=== PATIENT | male | born 1950 | race Caucasian/White ===

== ENCOUNTER 2016-09-12 09:26 | Outpatient (RCR) | payer BC ==
[2016-06-30 09:34] LABS: BASOPHILS % (AUTO) 0 % (0-10); EOSINOPHILS % (AUTO) 1 % (0-10); LYMPHOCYTES # (AUTO) 1.1 X 10^3 (1.0-4.0); LYMPHOCYTES % (AUTO) 17 % (12-44); MEAN CORPUSCULAR HEMOGLOBIN 30 PG (25-34); MEAN CORPUSCULAR HGB CONC 36 G/DL (32-36); MEAN CORPUSCULAR VOLUME 85 FL (80-99); MEAN PLATELET VOLUME 8.6 FL (7.4-10.4); MONOCYTES # (AUTO) 0.9 X 10^3 (0.0-1.0); MONOCYTES % (AUTO) 13 % (0-12); NEUTROPHILS # (AUTO) 4.4 X 10^3 (1.8-7.8); NEUTROPHILS % (AUTO) 69 % (42-75); PLATELET COUNT 253 10^3/uL (130-400); RED BLOOD COUNT 5.23 10^6/uL (4.35-5.85); RED CELL DISTRIBUTION WIDTH 13.9 % (10.0-14.5); WHITE BLOOD COUNT 6.4 10^3/uL (4.3-11.0)
[2016-06-30 10:00] LABS: ALANINE AMINOTRANSFERASE 26 U/L (0-55); ALBUMIN 4.9 G/DL (3.2-4.5); ANION GAP 14 MMOL/L (5-14); ASPARTATE AMINO TRANSFERASE 26 U/L (5-34); BILIRUBIN,TOTAL 0.5 MG/DL (0.1-1.0); BLOOD UREA NITROGEN 14 MG/DL (7-18); BUN/CREATININE RATIO 16; CALCIUM 9.3 MG/DL (8.5-10.1); CARBON DIOXIDE 18 MMOL/L (21-32); CHLORIDE 103 MMOL/L (98-107); CREATININE SERUM 0.89 MG/DL (0.60-1.30); GFR ESTIMATED > 60; GLUCOSE 76 MG/DL (70-105); POTASSIUM 4.3 MMOL/L (3.6-5.0); SODIUM 135 MMOL/L (135-145); TOTAL PROTEIN 7.4 G/DL (6.4-8.2)
--- NOTE | 2016-06-30 11:39 | Diagnostic Imaging Report ---
PROCEDURE: CT chest without contrast. TECHNIQUE: Multiple contiguous axial images were obtained through the chest without the use of intravenous contrast. INDICATION: Pulmonary nodules. Study compared 08/06/2015. FINDINGS: Subcentimeter bilateral nodules are either stable or decreased from the previous exam. Right lower lobe nodules measured 4 mm today, previously 5 mm and 7 mm. The left lower lobe nodule today is 5 mm previously measuring 7 mm. Additional micronodules unchanged. No new mass is found. There is heterogeneous air-trapping and changes of centrilobular emphysema. Irregular pleural parenchymal scarring at the right upper lobe towards the apex is a redemonstrated finding with reduction in its more kled-vtcgxh-nypx component. Nodularity centrally today measuring 9 x 8 mm, previously 15 x 10 mm. There has been no adverse interval development and no new dominant or suspicious-appearing mass was shown. No effusion or pneumothorax. Hilar and mediastinal evaluation is limited by the absence of contrast but no appreciable adenopathy. There are some secretions and debris within the lumen of the trachea through the josefina with some trace frothy debris within the left mainstem proximally. No distal atelectasis. No findings to suggest a sequelae of aspiration pneumonia. IMPRESSION: Micronodules stable or decreased from priors, likely chronic areas of scarring. No suspicious mass or acute infiltrate. Some mucous and frothy debris within the airway at the lower trachea and proximal left mainstem without obstruction or findings of aspiration pneumonia. Dictated by: Dictated on workstation # [id number]
== END 2016-09-28 | disposition home or self-care (01) ==
LOC: RAD 09:26
PROVIDERS: ATTEND Nurse Practitioner Family
DX: A31.9 Mycobacterial infection, unspecified (principal); R91.1 Solitary pulmonary nodule; J44.9 Chronic obstructive pulmonary disease, unspecified; F17.201 Nicotine dependence, unspecified, in remission
CPT/HCPCS: 36415; 71250; 80053; 85025; 87070; 87077; 87186; 87205

== ENCOUNTER → 2016-11-19 | Outpatient (CLI) | payer BC | LOC: RT 16:12 | PROVIDERS: ATTEND Nurse Practitioner Family | DX: J44.9 Chronic obstructive pulmonary disease, unspecified (principal); A31.9 Mycobacterial infection, unspecified; F17.201 Nicotine dependence, unspecified, in remission ==

== ENCOUNTER → 2016-12-03 | Outpatient (CLI) | payer BC ==
[~2016-12-03] MED LIST: RT-ALBUTEROL SULF 2.5 MG/3 ML PRE-MIX VIAL INH ONE
== END ==
LOC: RT 07:41
PROVIDERS: ATTEND Nurse Practitioner Family
DX: J44.9 Chronic obstructive pulmonary disease, unspecified (principal); A31.9 Mycobacterial infection, unspecified; F17.201 Nicotine dependence, unspecified, in remission
CPT/HCPCS: 94060; 94640; 94726; 94729

== ENCOUNTER 2016-12-26 14:01 | Outpatient (RCR) | payer BC | END 2017-03-26 | disposition home or self-care (01) | LOC: LAB 14:01 | PROVIDERS: ATTEND Nurse Practitioner Family | DX: A31.9 Mycobacterial infection, unspecified (principal) | CPT/HCPCS: 87070; 87077; 87116; 87186; 87205 ==

== ENCOUNTER → 2016-12-30 | Outpatient (CLI) | payer BC ==
[2016-12-30 08:38] LABS: BASOPHILS % (AUTO) 0 % (0-10); EOSINOPHILS # (AUTO) 0.1 10^3/uL (0.0-0.3); EOSINOPHILS % (AUTO) 1 % (0-10); LYMPHOCYTES # (AUTO) 1.6 X 10^3 (1.0-4.0); LYMPHOCYTES % (AUTO) 23 % (12-44); MEAN CORPUSCULAR HEMOGLOBIN 30 PG (25-34); MEAN CORPUSCULAR HGB CONC 35 G/DL (32-36); MEAN CORPUSCULAR VOLUME 85 FL (80-99); MEAN PLATELET VOLUME 8.3 FL (7.4-10.4); MONOCYTES # (AUTO) 0.8 X 10^3 (0.0-1.0); MONOCYTES % (AUTO) 11 % (0-12); NEUTROPHILS # (AUTO) 4.5 X 10^3 (1.8-7.8); NEUTROPHILS % (AUTO) 65 % (42-75); PLATELET COUNT 337 10^3/uL (130-400); RED BLOOD COUNT 5.16 10^6/uL (4.35-5.85); RED CELL DISTRIBUTION WIDTH 13.8 % (10.0-14.5); WHITE BLOOD COUNT 6.9 10^3/uL (4.3-11.0)
[2016-12-30 08:59] LABS: ALANINE AMINOTRANSFERASE 23 U/L (0-55); ALBUMIN 4.4 G/DL (3.2-4.5); ANION GAP 12 MMOL/L (5-14); ASPARTATE AMINO TRANSFERASE 21 U/L (5-34); BILIRUBIN,TOTAL 0.4 MG/DL (0.1-1.0); BLOOD UREA NITROGEN 10 MG/DL (7-18); BUN/CREATININE RATIO 13; CALCIUM 9.1 MG/DL (8.5-10.1); CARBON DIOXIDE 23 MMOL/L (21-32); CHLORIDE 101 MMOL/L (98-107); GFR ESTIMATED > 60; GLUCOSE 84 MG/DL (70-105); SODIUM 136 MMOL/L (135-145)
[2016-12-30 09:00] LABS: BASOPHILS % (MANUAL) 2 %; EOSINOPHILS % (MANUAL) 1 %; LYMPHOCYTES % (MANUAL) 15 %; NEUTROPHILS % (MANUAL) 55 %; REACTIVE LYMPHOCYTES 12 %
== END ==
LOC: LAB 08:19
PROVIDERS: ATTEND Nurse Practitioner Family
DX: J44.9 Chronic obstructive pulmonary disease, unspecified (principal); R91.1 Solitary pulmonary nodule; A31.9 Mycobacterial infection, unspecified; F17.201 Nicotine dependence, unspecified, in remission
CPT/HCPCS: 36415; 80053; 85007; 85027

== ENCOUNTER → 2017-01-06 | Outpatient (CLI) | payer BC ==
[~2017-01-06] MED LIST changes: +CATHETER FLUSH 10 ML SYR IV PRN; +IOHEXOL 350 MG/ML 150 ML (OMNIPAQUE 350) VIAL IV ONE; +NS 100 ML (IVPB) BAG IV ONE; -RT-ALBUTEROL SULF 2.5 MG/3 ML PRE-MIX VIAL INH ONE
--- NOTE | 2017-01-06 11:07 | Diagnostic Imaging Report ---
PROCEDURE: CT angiography of the chest with contrast. TECHNIQUE: Multiple contiguous axial images were obtained through the chest after uneventful bolus administration of intravenous contrast. Reconstructed CTA MIP acquisitions were also performed. Indication: Cough, syncope, dyspnea, followup lung nodule. Comparison: 06/30/2016 and 08/06/2015. Discussion: No pulmonary embolus identified. The thoracic aorta is normal in caliber and configuration. No aneurysm or dissection. Normal heart size. No pleural or pericardial fluid. Severe emphysema is again demonstrated. Interval development of multiple nodular densities within the left lung. The largest within the posterior left upper lobe measures 2.2 x 2.7 cm and is pleural-based. Nodule within the superior segment of the left lower lobe measures 0.9 x 1.2 cm. Nodule along the left major fissure measures 1.6 x 1.0 cm and is pleural-based. Pleural-based nodule within the posterior left lower lobe measures 0.9 cm. Pleural-based spiculated nodule along the medial left lower lobe measures 1.0 cm. Underlying etiology is indeterminate and would include a malignant, infectious, or inflammatory etiology. Recommend clinical correlation and short-term CT followup. Scarring within the right lung apex is stable. The visualized upper abdomen is unremarkable. No mediastinal, hilar, or axillary adenopathy. No acute osseous abnormality identified. Impression: 1. Severe emphysema, stable. 2. Interval development of nodular densities within the left upper and lower lung as described. Etiology is indeterminate. At a minimum, recommend short-term CT followup after appropriate clinical treatment. Potentially the pleural-based nodule within the posterior left upper lobe could be biopsied under CT guidance for more definitive evaluation if nodular densities do not resolve in the near future on CT followup. 3. No pulmonary embolus or aortic abnormality. Dictated by: Dictated on workstation # [id number]
== END ==
LOC: RAD 10:17
PROVIDERS: ATTEND Nurse Practitioner Family
DX: J43.9 Emphysema, unspecified (principal)
CPT/HCPCS: 71275

== ENCOUNTER → 2017-02-13 | Outpatient (CLI) | payer BC ==
[2017-02-13 09:14] LABS: BASOPHILS % (AUTO) 0 % (0-10); EOSINOPHILS % (AUTO) 1 % (0-10); LYMPHOCYTES # (AUTO) 1.1 X 10^3 (1.0-4.0); LYMPHOCYTES % (AUTO) 24 % (12-44); MEAN CORPUSCULAR HEMOGLOBIN 29 PG (25-34); MEAN CORPUSCULAR HGB CONC 35 G/DL (32-36); MEAN CORPUSCULAR VOLUME 85 FL (80-99); MEAN PLATELET VOLUME 8.2 FL (7.4-10.4); MONOCYTES # (AUTO) 0.8 X 10^3 (0.0-1.0); MONOCYTES % (AUTO) 18 % (0-12); NEUTROPHILS # (AUTO) 2.7 X 10^3 (1.8-7.8); NEUTROPHILS % (AUTO) 57 % (42-75); PLATELET COUNT 201 10^3/uL (130-400); RED BLOOD COUNT 5.41 10^6/uL (4.35-5.85); RED CELL DISTRIBUTION WIDTH 14.4 % (10.0-14.5); WHITE BLOOD COUNT 4.6 10^3/uL (4.3-11.0)
[2017-02-13 09:35] LABS: ALANINE AMINOTRANSFERASE 29 U/L (0-55); ALBUMIN 4.7 G/DL (3.2-4.5); ANION GAP 12 MMOL/L (5-14); ASPARTATE AMINO TRANSFERASE 32 U/L (5-34); BILIRUBIN,TOTAL 0.6 MG/DL (0.1-1.0); BLOOD UREA NITROGEN 8 MG/DL (7-18); BUN/CREATININE RATIO 11; CALCIUM 9.5 MG/DL (8.5-10.1); CARBON DIOXIDE 26 MMOL/L (21-32); CHLORIDE 90 MMOL/L (98-107); CREATININE SERUM 0.75 MG/DL (0.60-1.30); GFR ESTIMATED > 60; GLUCOSE 72 MG/DL (70-105); POTASSIUM 4.5 MMOL/L (3.6-5.0); SODIUM 128 MMOL/L (135-145)
[2017-02-13 09:44] LABS: BAND NEUTROPHILS 0 %; BASOPHILS % (MANUAL) 0 %; EOSINOPHILS % (MANUAL) 2 %; LYMPHOCYTES % (MANUAL) 24 %; NEUTROPHILS % (MANUAL) 55 %
== END ==
LOC: LAB 08:59
PROVIDERS: ATTEND Nurse Practitioner Family
DX: A31.9 Mycobacterial infection, unspecified (principal)
CPT/HCPCS: 36415; 80053; 85007; 85027

== ENCOUNTER → 2017-03-16 | Outpatient (CLI) | payer BC ==
--- NOTE | 2017-03-16 15:16 | Diagnostic Imaging Report ---
PROCEDURE: CT chest without contrast. TECHNIQUE: Multiple contiguous axial images were obtained through the chest without the use of intravenous contrast. INDICATION: Followup nodule. Comparison exams evaluated include 01/06/17 and other prior exams including 01/17/15. FINDINGS: There are multiple irregular nodular densities seen on 01/06/2017 exam which demonstrate complete resolution on the current study suggestive of resolved pneumonia. There are background advanced emphysema changes generally worse in the right upper lobe and left lower lobe. There are stable 4-6 mm nodules seen in the superior segment of the lower lobe on both sides stable from 2014. There is also scarring in the lung apices stable from 2014. There is no developing or enlarging suspicious nodule or mass. The heart size is normal. No pericardial or pleural effusion. No thoracic aortic aneurysm. No mediastinal mass or significantly enlarged lymph node in the mediastinum or axilla. No definite mass adjacent to the unopacified hilar vessels seen. The sections in the upper abdomen demonstrate no definite abnormality. Compression fractures of the lower thoracic spine appear to be chronic. A T6 compression fracture is probably subacute, and is new from 06/30/2016. It is seen, however, on 01/06/17. IMPRESSION: 1. Severe emphysema. 2. Stable nodules from December 2014 exam compatible with benign etiology. 3. Subacute compression fracture of T6 vertebral body. If the patient has significant back pain, then further evaluation with MRI of thoracic spine is suggested. Dictated by: Dictated on workstation # [id number]
== END ==
LOC: RAD 12:43
PROVIDERS: ATTEND Nurse Practitioner Family
DX: J43.9 Emphysema, unspecified (principal); R91.8 Other nonspecific abnormal finding of lung field; A31.9 Mycobacterial infection, unspecified; F17.201 Nicotine dependence, unspecified, in remission
CPT/HCPCS: 71250

== ENCOUNTER → 2017-04-02 | Outpatient (CLI) | payer MEDICARE, BC ==
--- NOTE | 2017-04-02 14:49 | Diagnostic Imaging Report ---
Examination: DEXA scan. INDICATION: osteopenia TECHNIQUE: Bone mineral density estimated based on dual energy radiography over the lumbar spine and femoral necks, was performed. FINDINGS: The lumbar spine T-score is -0.2. T score over the left femoral neck is -1.5 and on the right side is -1.6. IMPRESSION: Osteopenia. Dictated by: Dictated on workstation # [id number]
== END ==
LOC: RAD 08:41
PROVIDERS: ATTEND Nurse Practitioner Family
DX: M85.89 Other specified disorders of bone density and structure, multiple sites (principal); M48.54XA Collapsed vertebra, not elsewhere classified, thoracic region, initial encounter for fracture
CPT/HCPCS: 77080

== ENCOUNTER → 2017-04-23 | Outpatient (CLI) | payer MEDICARE, BC ==
--- NOTE | 2017-04-23 16:09 | Diagnostic Imaging Report ---
PROCEDURE: CT abdomen and pelvis without contrast. TECHNIQUE: Multiple contiguous axial images were obtained through the abdomen and pelvis without the use of intravenous contrast. INDICATION: Nausea. Lower abdominal pain. FINDINGS: The lower lungs demonstrate advanced emphysema changes and bulla. The liver, spleen, pancreas and adrenal glands appear unremarkable. The kidneys demonstrate no stones or hydronephrosis. The abdominal aorta is normal in caliber. The renal bladder demonstrates mild wall thickening which could relate to cystitis. Alternatively, this might be secondary to BPH. The prostate gland demonstrates central calcifications and is slightly enlarged. It measures 4.8 cm in transverse dimension. There is mild fatty stranding around the sigmoid colon with associated numerous diverticula, suggestive of diverticulitis. Slight sigmoid wall thickening at this location is seen. This is not associated with abscess. No bowel obstruction. The osseous structures demonstrate mild sclerotic curvature convexed to the left. There is suggestion of a compression fracture of T12, which appears chronic. IMPRESSION: 1. Mild sigmoid diverticulitis. No abscess is seen. 2. Advanced emphysema. Trinh, the nurse covering for Ms Rahsmi Waters, the nurse practitioner taking care of the patient, was called and given findings at time of dictation. Dictated by: Dictated on workstation # [id number]
== END ==
LOC: RAD 15:16
PROVIDERS: ATTEND Nurse Practitioner Family
DX: K57.32 Diverticulitis of large intestine without perforation or abscess without bleeding (principal); J43.9 Emphysema, unspecified
CPT/HCPCS: 74176

== ENCOUNTER → 2017-07-06 | Outpatient (CLI) | payer MEDICARE ==
[2017-07-06 10:54] LABS: ALANINE AMINOTRANSFERASE 17 U/L (0-55); ALBUMIN 4.3 GM/DL (3.2-4.5); ANION GAP 12 MMOL/L (5-14); ASPARTATE AMINO TRANSFERASE 20 U/L (5-34); BILIRUBIN,TOTAL 0.5 MG/DL (0.1-1.0); BLOOD UREA NITROGEN 11 MG/DL (7-18); BUN/CREATININE RATIO 14; CALCIUM 9.4 MG/DL (8.5-10.1); CARBON DIOXIDE 27 MMOL/L (21-32); CHLORIDE 95 MMOL/L (98-107); CREATININE SERUM 0.76 MG/DL (0.60-1.30); GFR ESTIMATED > 60; GLUCOSE 121 MG/DL (70-105); POTASSIUM 3.5 MMOL/L (3.6-5.0); SODIUM 134 MMOL/L (135-145); TOTAL PROTEIN 7.7 GM/DL (6.4-8.2)
== END ==
LOC: LAB 10:14
PROVIDERS: ATTEND Nurse Practitioner Family
DX: A31.9 Mycobacterial infection, unspecified (principal)
CPT/HCPCS: 36415; 80053

== ENCOUNTER → 2017-10-07 | Outpatient (CLI) | payer MEDICARE ==
[2017-10-07 10:27] LABS: BASOPHILS % (AUTO) 0 % (0-10); EOSINOPHILS # (AUTO) 0.1 10^3/uL (0.0-0.3); EOSINOPHILS % (AUTO) 1 % (0-10); HEMATOCRIT 43 % (40-54); HEMOGLOBIN 14.9 G/DL (13.3-17.7); LYMPHOCYTES # (AUTO) 1.2 X 10^3 (1.0-4.0); LYMPHOCYTES % (AUTO) 25 % (12-44); MEAN CORPUSCULAR HEMOGLOBIN 28 PG (25-34); MEAN CORPUSCULAR HGB CONC 34 G/DL (32-36); MEAN CORPUSCULAR VOLUME 82 FL (80-99); MONOCYTES # (AUTO) 0.9 X 10^3 (0.0-1.0); MONOCYTES % (AUTO) 17 % (0-12); NEUTROPHILS # (AUTO) 2.9 X 10^3 (1.8-7.8); NEUTROPHILS % (AUTO) 56 % (42-75); PLATELET COUNT 224 10^3/uL (130-400); RED CELL DISTRIBUTION WIDTH 16.8 % (10.0-14.5); WHITE BLOOD COUNT 5.1 10^3/uL (4.3-11.0)
[2017-10-07 10:48] LABS: ALANINE AMINOTRANSFERASE 24 U/L (0-55); ALBUMIN 4.1 GM/DL (3.2-4.5); ALKALINE PHOSPHATASE 58 U/L (40-136); BILIRUBIN,TOTAL 0.3 MG/DL (0.1-1.0); BUN/CREATININE RATIO 16; CALCIUM 9.3 MG/DL (8.5-10.1); CARBON DIOXIDE 24 MMOL/L (21-32); CHLORIDE 104 MMOL/L (98-107); CREATININE SERUM 0.79 MG/DL (0.60-1.30); GFR ESTIMATED > 60; GLUCOSE 95 MG/DL (70-105); POTASSIUM 4.2 MMOL/L (3.6-5.0); SODIUM 140 MMOL/L (135-145); TOTAL PROTEIN 6.9 GM/DL (6.4-8.2)
== END ==
LOC: LAB 10:06
PROVIDERS: ATTEND Nurse Practitioner Family
DX: A31.9 Mycobacterial infection, unspecified (principal)
CPT/HCPCS: 36415; 80053; 85025

== ENCOUNTER → 2018-04-05 | Outpatient (CLI) | payer MEDICARE ==
[2018-04-05 09:42] LABS: ALANINE AMINOTRANSFERASE 37 U/L (0-55); ALBUMIN 4.2 GM/DL (3.2-4.5); ALKALINE PHOSPHATASE 55 U/L (40-136); BILIRUBIN,TOTAL 0.3 MG/DL (0.1-1.0); BUN/CREATININE RATIO 21; CALCIUM 9.4 MG/DL (8.5-10.1); CARBON DIOXIDE 30 MMOL/L (21-32); CHLORIDE 106 MMOL/L (98-107); CREATININE SERUM 0.91 MG/DL (0.60-1.30); GFR ESTIMATED > 60; GLUCOSE 120 MG/DL (70-105); POTASSIUM 3.9 MMOL/L (3.6-5.0); SODIUM 143 MMOL/L (135-145); TOTAL PROTEIN 6.8 GM/DL (6.4-8.2)
== END ==
LOC: LAB 08:39
PROVIDERS: ATTEND Nurse Practitioner Family
DX: A31.9 Mycobacterial infection, unspecified (principal)
CPT/HCPCS: 36415; 80053

== ENCOUNTER → 2018-06-08 | Outpatient (CLI) | payer MEDICARE ==
[~2018-06-08] MED LIST changes: +ALBU0.63 IH; -CATHETER FLUSH 10 ML SYR IV PRN; +ENAL5TAB PO; +FLUT1DIS26 IH; -IOHEXOL 350 MG/ML 150 ML (OMNIPAQUE 350) VIAL IV ONE; +IPRA4AER IH; +LACT1TAB19 PO; +MONT10TA21 PO; -NS 100 ML (IVPB) BAG IV ONE
--- NOTE | 2018-06-08 11:27 | Diagnostic Imaging Report ---
INDICATION: History of tobacco use with a 44 pack year history. Quit smoking 6 years ago. TECHNIQUE: Noncontrast, low-dose CT imaging performed according to lung cancer screening protocol. COMPARISON: 03/16/2017, 08/06/2015 FINDINGS: HEART/MEDIASTINUM: Heart size normal. There is at least moderate severity coronary artery calcification particularly in the region of the proximal LAD. No pericardial effusion. Mild to moderate aortic wall calcification, nonaneurysmal. Few mildly prominent but nonpathologic enlarged mediastinal as well as bilateral axillary lymph nodes are present. EG junction appearing unremarkable. LUNGS: Rather marked severity emphysematous change about the lung parenchyma. Rather prominent bullous changes about the lung bases. There is new consolidation along the basilar aspect of the right upper lobe along the fissure plane. MEASURED PULMONARY NODULES: Irregular, stellate parenchymal density of the right lung apex generally stable from baseline. Image 85 series 4, mixed semisolid and groundglass opacity is present appearing changed from prior study. This area measures approximately 12 x 9 mm. Similar appearing area more peripherally in the anterior lateral aspect of the left upper lobe. Image 171 series 4, irregular pleural-based parenchymal density in the posterior lateral aspect of the left lower lobe appearing predominantly solid. This area measures approximately 2.0 x 1.2 x 1.3 cm, changed from prior study. Image 244 series 4, mixed cavitary and semisolid density posterior lateral aspect right lower lobe measuring 10 mm maximum size. Calcified granulomas are present. OTHER: Degenerative change about the thoracic spine. Multiple mildly compressed thoracic vertebral bodies are present. Most pronounced at T7 vertebral body. IMPRESSION: 1. Multiple bilateral areas of pulmonary nodularity and parenchymal density. Several areas do appear changed from prior study. Dominant area in the left lower lobe. 2. Rather advanced bullous emphysematous changes. 3. At least moderate severity coronary artery calcification. LUNG-RADS CATEGORY: 4B-S LUNG SCREENING MANAGEMENT/RECOMMENDATIONS: Screening recommendations would include chest CT with contrast and/or PET/CT imaging. However, these are somewhat atypical findings. Therefore, either consideration for PET/CT or repeat CT imaging in approximately 3 months is recommended. This is a deviation from typical lung screening algorithm. Notes: It is noted that this is a low dose CT examination. As a technical result, the examination is limited in overall assessment compared to a conventional CT examination of the chest. Dictated by: Dictated on workstation # [id number]
== END ==
LOC: RAD 07:32
PROVIDERS: ATTEND Nurse Practitioner Family
DX: Z12.2 Encounter for screening for malignant neoplasm of respiratory organs (principal); J98.4 Other disorders of lung; J44.9 Chronic obstructive pulmonary disease, unspecified; J30.9 Allergic rhinitis, unspecified; I25.10 Atherosclerotic heart disease of native coronary artery without angina pectoris; Z87.891 Personal history of nicotine dependence; Z86.19 Personal history of other infectious and parasitic diseases

== ENCOUNTER → 2018-06-22 | Outpatient (CLI) | payer MEDICARE | LOC: RAD 08:44 | PROVIDERS: ATTEND Internal Medicine Critical Care Medicine | DX: R91.1 Solitary pulmonary nodule (principal); J44.9 Chronic obstructive pulmonary disease, unspecified; J30.9 Allergic rhinitis, unspecified; F17.201 Nicotine dependence, unspecified, in remission; Z53.9 Procedure and treatment not carried out, unspecified reason; Z86.19 Personal history of other infectious and parasitic diseases ==

== ENCOUNTER 2018-06-23 07:11 | Outpatient (CLI) | payer MEDICARE ==
[~2018-06-23] VITALS: Ht 160 cm; Wt 63.5 kg
[2018-06-23] MEDS ORDERED: IPRA4AER IH ×2 (14:37)
[2018-06-23] MEDS ORDERED: LACT1TAB19 PO ×2 (14:37)
[2018-06-23] MEDS ORDERED: ALBU0.63 IH ×2 (14:37)
[2018-06-23] MEDS ORDERED: FLUT1DIS26 IH ×2 (14:37)
[2018-06-23] MEDS ORDERED: MONT10TA21 PO ×2 (14:37)
[2018-06-23] MEDS ORDERED: ENAL5TAB PO ×2 (14:37)
== END 2018-06-23 14:45 | disposition home or self-care (01) ==
LOC: PREOP 07:11
PROVIDERS: ATTEND Internal Medicine Critical Care Medicine
DX: Z01.818 Encounter for other preprocedural examination (principal)

== ENCOUNTER 2018-06-24 06:20 | Day surgery (SDC) | payer MEDICARE ==
[~2018-06-24] VITALS: Ht 160 cm; Wt 63.5 kg
[2018-06-24] MEDS ORDERED: NALOXONE 0.4 MG/ML 1 ML (NARCAN) VIAL IV ONE ×2 (06:21→08:30)
[2018-06-24] MEDS ORDERED: LIDOCAINE JELLY 2% (XYLOCAINE) 30 ML TUBE TOP ONE (06:21)
[2018-06-24] MEDS ORDERED: LIDOCAINE PF 2% 5 ML (XYLOCAINE) VIAL INJ ONE (06:21)
[2018-06-24] MEDS ORDERED: LIDOCAINE PF 1% 5 ML SYRINGE (ANLIKER/BAILEY ONLY) INJ ONE (06:21)
--- OUTSIDE RECORDS SUMMARY | 2018-06-24 06:23 | XMS REPORT ---
Author Author MEHRDAD GALLARDO [facility] Address [address] [place] [address] Care Team Providers Care Facilities Manager Name Role Phone MEHRDAD GALLARDO Unavailable PROBLEMS Type Condition ICD9-CM Code ZAK38-XF Code Onset Dates Condition Status SNOMED Code Problem Antibiotic long-term use Z79.2 Active 542004741 Problem TB (pulmonary tuberculosis) A15.0 Active 688528663 Problem Compression fracture of thoracic spine, non-traumatic, initial encounter M48.54XA Active 374017983 Problem No diagnosis on [place] I Z03.89 Active 8406118 Problem Nicotine abuse Z72.0 Active 71043049 Problem Chronic obstructive pulmonary disease, unspecified COPD type J44.9 Active 45066238 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 40667944 Problem Benign essential hypertension I10 Active 8829891 ALLERGIES No Information SOCIAL HISTORY Never Assessed PLAN OF CARE VITAL SIGNS MEDICATIONS Unknown Medications RESULTS Name Result Date Reference Range CMP 2017-02-18 Glucose, Serum 68 65-99 BUN 7 8-27 Creatinine, Serum 0.72 0.76-1.27 eGFR If NonAfricn Am 99 >59 eGFR If Africn Am 114 >59 BUN/Creatinine Ratio 10 10-24 Sodium, Serum 127 134-144 Potassium, Serum 5.1 3.5-5.2 Chloride, Serum 84 96-106 Carbon Dioxide, Total 24 18-29 Calcium, Serum 9.4 8.6-10.2 Protein, Total, Serum 7.0 6.0-8.5 Albumin, Serum 4.9 3.6-4.8 Globulin, Total 2.1 1.5-4.5 A/G Ratio 2.3 1.2-2.2 Bilirubin, Total 0.7 0.0-1.2 Alkaline Phosphatase, S 73 39-117 AST (SGOT) 30 0-40 ALT (SGPT) 29 0-44 No Test Indicated 2017-02-18 . Dear Doctor, PROCEDURES Procedure Date Ordered Result Body Site COMPREHEN METABOLIC PANEL February 18, 2017 VENIPUNCT, ROUTINE* February 18, 2017 IMMUNIZATIONS No Known Immunizations MEDICAL (GENERAL) HISTORY Type Description Date Medical History COPD/ pt wears oxygen at night 2L (PFT 2012, CT chest 2012 showing severe COPD/Emphysema)-[place] Medical History asthma Medical History arthritis Medical History hypertension Medical History TB- on treatment as of 01/[address] chest 02/2017- Stable nodules from 12/2014, T6 compression fracture, sever emphysema Medical History Osteopenia -DEXA 03/[address] abdomen- diverticulitis 03/2017 Medical History Dexa scan 03/2017- Osteopenia Surgical History heart surgery at age 8 Surgical History hernai repair Surgical History Colonoscopy 2009
--- OUTSIDE RECORDS SUMMARY | 2018-06-24 06:24 | XMS REPORT ---
Author MEHRDAD [facility] eClinicalWorks Address Unknown Phone Unavailable Care Team Providers Care Inseam Leveler Name Role Phone MEHRDAD GALLARDO Unavailable Allergies, Adverse Reactions, Alerts Substance Reaction Event Type N.K.D.A. 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 Assessment Neck stiffness M43.6 Active Problem Antibiotic long-term use Z79.2 Active Problem Chronic obstructive pulmonary disease, unspecified COPD type J44.9 Active Medications Medication Code System Code Instructions Start Date End Date Status Dosage Amlodipine Besy-Benazepril HCl [facility] [address]-97 10-20 MG Orally Once a day 1 capsule Acidophilus [facility] 80588926665 100 MG Orally Once a day 1 capsule Albuterol Sulfate [facility] [address]-71 (2.5 MG/3ML) 0.083% Inhalation Three times a day 3 ml Ethambutol HCl [facility] [address]-30 400 MG Orally not defined Advair Diskus [facility] [address]-89 500-50 MCG/DOSE Inhalation Twice a day 1 puff PredniSONE [facility] [address]-71 20 mg Orally Once a day Jul 08, 2016 Jul 13, 2016 2 tablet Cyclobenzaprine HCl [facility] [address]-21 5 mg Orally 2 times a day Jul 08, 2016 Jul 15, 2016 1 tablet Moxifloxacin HCl [facility] [address]-95 400 MG Orally Once a day 1 tablet Combivent Respimat [facility] [address]-37 20-100 MCG/ACT Inhalation Four times a day 1 puff Procedures Procedure Coding System Code Date THER/PROPH/DIAG INJ, SC/IM CPT-4 80313 Jul 08, 2016 FLUARIX QUAD P-FREE 3 AND UP .50 2015 CPT-4 34632 Jul 08, 2016 TORADOL (IM) 60 MG/2ML (UP TO 15 MG) CPT-4 J1885 Jul 08, 2016 Office Visit, Est Pt., Level 3 CPT-4 28737 Jul 08, 2016 SINGLE IMMUNIZATION ADMIN CPT-4 63035 Jul 08, 2016 Vital Signs Date/Time: Jul 08, 2016 Cardiac Monitoring Heart Rate 98 bpm Weight 115 lbs Height 65 in BMI 19.13 Index Blood Pressure Diastolic 60 mmHg Blood Pressure Systolic 112 mmHg Results No Known Results Immunizations Vaccine Administration Date FLUARIX QUAD P-FREE 3 AND UP .50 2015Jul 08, 2016 Summary Purpose eClinicalWorks Submission
--- OUTSIDE RECORDS SUMMARY | 2018-06-24 06:24 | XMS REPORT ---
Author Author MEHRDAD GALLARDO [facility] Address [address] [place] [address] Care Team Providers Care Board Certified Music Therapist Name Role Phone MEHRDAD GALLARDO Unavailable PROBLEMS Type Condition ICD9-CM Code QEN75-BT Code Onset Dates Condition Status SNOMED Code Problem Antibiotic long-term use Z79.2 Active 261678353 Problem TB (pulmonary tuberculosis) A15.0 Active 390200790 Problem Compression fracture of thoracic spine, non-traumatic, initial encounter M48.54XA Active 550756243 Problem No diagnosis on [place] I Z03.89 Active 3857716 Problem Nicotine abuse Z72.0 Active 61781508 Problem Chronic obstructive pulmonary disease, unspecified COPD type J44.9 Active 57258716 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 03554628 Problem Benign essential hypertension I10 Active 3273941 ALLERGIES No Information ENCOUNTERS Encounter Location Date [facility] [address] [address] [id number][place] [id number] Jun, Benign essential hypertension I10 [facility] [place] [address] [facility] [id number][place] [id number] May, [facility] [place] [address] [facility] [id number][place] [id number] May, Benign essential hypertension I10 ; Chronic obstructive pulmonary disease, unspecified COPD type J44.9 and Encounter for immunization Z23 [facility] [address] [facility] [id number][place] [id number] Apr, [facility] [address] [facility] [id number][place] [id number] Mar, [facility] [place] [address] [facility] [id number][place] [id number] Mar, Belching R14.2 ; Nausea R11.0 and Lower abdominal pain R10.30 [facility] [address] [id number][place] [id number] Mar, Lower abdominal pain R10.30 ; Belching R14.2 ; Nausea R11.0 and Stomach cramps R10.9 [facility] [address] [id number][place] [id number] Mar, Chronic obstructive pulmonary disease, unspecified COPD type J44.9 [facility] [address] [id number][place] [id number] Feb, Low serum sodium R79.89 [facility] [address] [id number], [place] [id number] Feb, Compression fracture of thoracic spine, non-traumatic, initial encounter M48.54XA and Screening for osteoporosis Z13.820 [facility] [address] [id number][place] [id number] January, Low serum sodium R79.89 [facility] [address] [id number][place] [id number] January, Hyponatremia E87.1 [facility] [address] [id number][place] [id number] January, Hyponatremia E87.1 [facility] [address] [id number][place] [id number] Dec, Chronic obstructive pulmonary disease, unspecified COPD type J44.9 ; Hypoxia R09.02 and Benign essential hypertension I10 [facility] [address] [id number], [place] [id number] Dec, Low blood pressure reading R03.1 [facility] [address] [id number], [place] [id number] Dec, Low blood pressure reading R03.1 and Benign essential hypertension I10 [facility] [address] [id number][place] [id number] Nov, Chronic obstructive pulmonary disease, unspecified COPD type J44.9 ; Benign essential hypertension I10 and Thrush B37.0 [facility] [address] [id number], [place] [id number] Oct, [facility] [address] [id number], [place] [id number] Oct, [facility] [address] [id number][place] [id number] Jul, No diagnosis on [place] I Z03.89 [facility] [address] [id number], [place] [id number] Jun, [facility] [address] [id number][place] [id number] Jun, Neck stiffness M43.6 ; Encounter for immunization Z23 and Muscle spasm M62.838 [facility] [address] [id number], [place] [id number] Feb, Other general symptoms and signs R68.89 [facility] [address] [id number], [place] [id number] January, Other general symptoms and signs R68.89 [facility] [address] [id number], [place] [id number] January, Benign essential hypertension I10 ; TB (pulmonary tuberculosis) A15.0 ; Antibiotic long-term use Z79.2 and Chronic obstructive pulmonary disease , unspecified COPD type J44.9 [facility] [address] [id number], [place] [id number] January, [facility] [address] [id number], [place] [id number] January, Nicotine abuse Z72.0 ; Benign essential hypertension I10 ; TB ( pulmonary tuberculosis) A15.0 ; Antibiotic long-term use Z79.2 and Chronic obstructive pulmonary disease, unspecified COPD type J44.9 [facility] [address] [id number], [place] [id number] Jul, Encounter for immunization Z23 [facility] [address] [id number] [place] [id number] Apr, Subclinical hyperthyroidism 242.90 ; TB lung, 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 hafsa Flaherty PLAN OF CARE VITAL SIGNS MEDICATIONS Unknown Medications RESULTS No Results PROCEDURES Procedure Date Ordered Result Body Site VENIPUNCT, ROUTINE* March 26, 2017 COMPREHEN METABOLIC PANEL March 26, 2017 INSTRUCTIONS MEDICATIONS ADMINISTERED No Known Medications MEDICAL (GENERAL) HISTORY Type Description Date Medical [...]
--- OUTSIDE RECORDS SUMMARY | 2018-06-24 06:24 | XMS REPORT ---
Author Author MEHRDAD GALLARDO [facility] Address [address] [place] [address] Care Team Providers Care Curing Oven Attendant Name Role Phone MEHRDAD GALLARDO Unavailable PROBLEMS Type Condition ICD9-CM Code BJR32-BC Code Onset Dates Condition Status SNOMED Code Problem Antibiotic long-term use Z79.2 Active 100572610 Problem TB (pulmonary tuberculosis) A15.0 Active 736830443 Problem Compression fracture of thoracic spine, non-traumatic, initial encounter M48.54XA Active 709538074 Problem No diagnosis on [place] I Z03.89 Active 2973617 Problem Nicotine abuse Z72.0 Active 47219669 Problem Chronic obstructive pulmonary disease, unspecified COPD type J44.9 Active 08344383 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 83925171 Problem Benign essential hypertension I10 Active 3716228 ALLERGIES No Known Allergies ENCOUNTERS Encounter Location Date Diagnosis [facility] [place] [address] [facility] [id number][place] [id number] Jun, Benign essential hypertension I10 [facility] [address] [id number][place] [id number] May, [facility] [address] [id number], [place] [id number] May, Benign essential hypertension I10 ; Chronic obstructive pulmonary disease, unspecified COPD type J44.9 and Encounter for immunization Z23 [facility] [place] [address] [facility] [id number], [place] [id number] Apr, [facility]ank[facility] [id number], [place] [id number] Mar, [facility] [address] [id number], [place] [id number] Mar, Belching R14.2 ; Nausea R11.0 and Lower abdominal pain R10.30 [facility] [address] [id number], [place] [id number] Mar, Lower abdominal pain R10.30 ; Belching R14.2 ; Nausea R11.0 and Stomach cramps R10.9 [facility] [address] [id number], [place] [id number] Mar, Chronic obstructive pulmonary disease, unspecified COPD type J44.9 [facility] [address] [id number], [place] [id number] Feb, Low serum sodium R79.89 [facility] [address] [id number], [place] [id number] Feb, Compression fracture of thoracic spine, non-traumatic, initial encounter M48.54XA and Screening for osteoporosis Z13.820 [facility] [address] [id number], [place] [address] January, Low serum sodium R79.89 [facility] [address] [id number], [place] [id number] January, Hyponatremia E87.1 [facility] [address] [id number], [place] [id number] January, Hyponatremia E87.1 [facility] [address] [id number], [place] [id number] Dec, Chronic obstructive pulmonary disease, unspecified COPD type J44.9 ; Hypoxia R09.02 and Benign essential hypertension I10 [facility] [address] [id number], [place] [id number] Dec, Low blood pressure reading R03.1 [facility] [address] [id number], [place] [id number] Dec, Low blood pressure reading R03.1 and Benign essential hypertension I10 [facility] [address] [id number], [place] [id number] Nov, Chronic obstructive pulmonary disease, unspecified COPD type J44.9 ; Benign essential hypertension I10 and Thrush B37.0 [facility] [address] [id number], [place] [id number] Oct, [facility] [address] [id number], [place] [id number] Oct, [facility] [address] [id number], [place] [id number] Jul, No diagnosis on [place] I Z03.89 [facility] [address] [id number], [place] [id number] Jun, [facility] [address] [id number], [place] [address] Jun, Neck stiffness M43.6 ; Encounter for immunization Z23 and Muscle spasm M62.838 [facility] [address] [id number], [place] [id number] Feb, Other general symptoms and signs R68.89 [facility]Corter[facility] [address] [id number], [place] [id number] January, Other general symptoms and signs R68.89 [facility] [address] [id number], [place] [id number] January, Benign essential hypertension I10 ; TB (pulmonary tuberculosis) A15.0 ; Antibiotic long-term use Z79.2 and Chronic obstructive pulmonary disease , unspecified COPD type J44.9 [facility]ITALInvidioTER [address] [id number], [place] [id number] January, [facility] [address] [id number], [place] [address]88[address] January, Nicotine abuse Z72.0 ; Benign essential hypertension I10 ; TB ( pulmonary tuberculosis) A15.0 ; Antibiotic long-term use Z79.2 and Chronic obstructive pulmonary disease, unspecified COPD type J44.9 [facility] [address] [id number], [place] [id number] Jul, Encounter for immunization Z23 [facility] [address] [id number] [place] [id number] Apr, Subclinical hyperthyroidism 242.90 ; TB lung, 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 and COPD (chronic obstructive pulmonary disease) 496 [facility] [address] [id number] [place] [id number] Feb, Abnormal laboratory test 796.4 [facility] [address] [id number] [place] [id number] Feb, COPD (chronic obstructive pulmonary disease) 496 ; History of tobacco abuse V15.82 ; Hypertension 401.9 ; Alcohol use V49.89 and TB ( tuberculosis) 011.90 IMMUNIZATIONS Vaccine Route Administration Date Status FLUARIX QUAD (3 AND UP) 2016 IM Intramuscular Jun 16, 2017 Administered SOCIAL HISTORY Never Assessed REASON FOR VISIT 6 mo Blood Pressure/ COPD follow up bferrisma PLAN OF CARE Activity Details Follow Up 1 Year Reason:COPD/BP VITAL SIGNS Height 65 in 2017-06-16 Weight 105.1 lbs 2017-06-16 Temperature 98.4 degrees Fahrenheit 2017-06-16 Heart Rate 108 bpm 2017-06-16 Respiratory Rate 20 2017-06-16 Oximetry 96 % 2017-06-16 BMI 17.49 kg/m2 2017-06-16 Blood pressure systolic 112 mmHg 2017-06-16 Blood pressure diastolic 78 mmHg 2017-06-16 MEDICATIONS Medication Instructions Dosage Frequency Start Date End Date Duration Status Zofran 8 MG Orally every 8 hours as needed for nausea 1 tablet Mar, 05 days Active Ipratropium-Albuterol 0.5-2.5 (3) MG/3ML Inhalation every 6 hrs 3 ml 6h May, 90 days Active Advair Diskus 500-50 MCG/DOSE Inhalation Twice a day 1 puff 12h Active Albuterol Sulfate (2.5 MG/3ML) 0.083% Inhalation Three times a day 3 ml 8h Active Acidophilus 100 mg Orally Once a day 1 capsule 24h 0 Active Benazepril HCl 5 mg Orally Once a day in AM 1 tablet Dec, Active Combivent Respimat 20-100 MCG/ACT Inhalation Four times a day ( use if not using the nebulizer) 1 puff Active Moxifloxacin HCl 400 MG Orally Once a day 1 tablet 24h Active Ethambutol HCl 400 MG Active RESULTS No Results PROCEDURES Procedure Date Ordered Result Body Site FLUARIX QUAD (3 & UP)-GSK-2014Jun 16, 2017 SINGLE IMMUNIZATION ADMIN Jun 16, 2017 INSTRUCTIONS MEDICATIONS ADMINISTERED No Known Medications [...]
--- OUTSIDE RECORDS SUMMARY | 2018-06-24 06:24 | XMS REPORT ---
Author Author MEHRDAD GALLARDO [facility] SHORE Address [address] [place] [address] Care Team Providers Care Process Equipment Operator Name Role Phone MEHRDAD GALLARDO Unavailable PROBLEMS Type Condition ICD9-CM Code DBL31-JH Code Onset Dates Condition Status SNOMED Code Problem Antibiotic long-term use Z79.2 Active 166085410 Problem TB (pulmonary tuberculosis) A15.0 Active 768582141 Problem Compression fracture of thoracic spine, non-traumatic, initial encounter M48.54XA Active 870733596 Problem No diagnosis on [place] I Z03.89 Active 5265834 Problem Nicotine abuse Z72.0 Active 60601476 Problem Chronic obstructive pulmonary disease, unspecified COPD type J44.9 Active 18242713 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 61204952 Problem Benign essential hypertension I10 Active 0923494 ALLERGIES No Information ENCOUNTERS Encounter Location Date Diagnosis [facility] [address] [id number], [place] [id number] Jun, Benign essential hypertension I10 [facility] SolutionsBRETT [place] [address] [facility] [id number], [place] [id number] May, [facility]ENTERMid[facility] Judgment RecoverySHOREBRETT [place] [address] [facility] [id number], [place] [address] May, Benign essential hypertension I10 ; Chronic obstructive pulmonary disease, unspecified COPD type J44.9 and Encounter for immunization Z23 [facility]ENTERMid[facility] Judgment RecoverySHORE [address] [facility] [id number], [place] [id number] Apr, [facility]ENTERMid[facility] Judgment RecoverySHORE [address] [facility] [id number][place] [id number] Mar, [facility] [place] [address] [facility] [id number], [place] [address] Mar, Belching R14.2 ; Nausea R11.0 and Lower abdominal pain R10.30 [facility] [address] [id number], [place] [id number] Mar, Lower abdominal pain R10.30 ; Belching R14.2 ; Nausea R11.0 and Stomach cramps R10.9 [facility] [address] [id number], [place] [id number] Mar, Chronic obstructive pulmonary disease, unspecified COPD type J44.9 [facility] [address] [id number], [place] [id number] Feb, Low serum sodium R79.89 [facility] [address] [id number], [place] [id number] Feb, Compression fracture of thoracic spine, non-traumatic, initial encounter M48.54XA and Screening for osteoporosis Z13.820 [facility] [address] [id number], [place] [address] January, Low serum sodium R79.89 [facility] [address] [id number], [place] [id number] January, Hyponatremia E87.1 [facility] [address] [id number], [place] [id number] January, Hyponatremia E87.1 [facility] [address] [id number], [place] [address] Dec, Chronic obstructive pulmonary disease, unspecified COPD type J44.9 ; Hypoxia R09.02 and Benign essential hypertension I10 [facility] [address] [id number], [place] [id number] Dec, Low blood pressure reading R03.1 [facility] [address] [id number], [place] [id number] Dec, Low blood pressure reading R03.1 and Benign essential hypertension I10 [facility] [address] [id number], [place] [id number] Nov, Chronic obstructive pulmonary disease, unspecified COPD type J44.9 ; Benign essential hypertension I10 and Thrush B37.0 [facility] [address] [id number], [place] [id number] Oct, [facility] [id number], [place] [id number] Oct, [facility] [address] [id number], [place] [id number] Jul, No diagnosis on [place] I Z03.89 [facility] [address] [id number], [place] [address] Jun, [facility] [address] [id number], [place] [address] Jun, Neck stiffness M43.6 ; Encounter for immunization Z23 and Muscle spasm M62.838 [facility]INGTONHaoguihuaCuca [address] [id number], [place] [address]24[address] Feb, Other general symptoms and signs R68.89 [facility]INGTONHaog[facility]huaC[facility] [address] [id number], [place] [id number] January, Other general symptoms and signs R68.89 [facility]INGTON[facility]huaC[facility] [address] [id number], [place] [address] January, Benign essential hypertension I10 ; TB (pulmonary tuberculosis) A15.0 ; Antibiotic long-term use Z79.2 and Chronic obstructive pulmonary disease , unspecified COPD type J44.9 [facility]INGTONHyperion SolutionsTER [address] [id number], [place] [id number] January, [facility] [address] [id number], [place] [address] January, Nicotine abuse Z72.0 ; Benign essential hypertension I10 ; TB ( pulmonary tuberculosis) A15.0 ; Antibiotic long-term use Z79.2 and Chronic obstructive pulmonary disease, unspecified COPD type J44.9 [facility]INGTONHyperion SolutionsTER [address] [id number], [place] [address] Jul, Encounter for immunization Z23 [facility] [address] [address] [address] [address] [id number] [place], [place] [id number] Apr, Subclinical hyperthyroidism 242.90 ; TB lung, 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 and COPD (chronic obstructive pulmonary disease) 496 [facility] [address] [id number] [place] [id number] Feb, Abnormal laboratory test 796.4 [facility] [address] [address] [id number] [place] [id number] Feb, COPD (chronic obstructive pulmonary disease) 496 ; History of tobacco abuse V15.82 ; Hypertension 401.9 ; Alcohol use V49.89 and TB ( tuberculosis) 011.90 IMMUNIZATIONS No Known Immunizations SOCIAL HISTORY Never Assessed REASON FOR VISIT PLAN OF CARE VITAL SIGNS MEDICATIONS Unknown Medications RESULTS Name Result Date Reference Range DEXA Hip and Spine PROCEDURES No Known procedures INSTRUCTIONS MEDICATIONS ADMINISTERED No Known Medications MEDICAL (GENERAL) HISTORY Type Description Date Medical History COPD/ pt wears oxygen at night 2L (PFT 2012, CT chest 2012 showing severe COPD/Emphysema)-[place] Medical History asthma Medical History arthritis Medical History hypertension Medical History TB- on treatment as of 01/[address] [place] [address] chest 02/2017- Stable nodules from 12/2014, T6 compression fracture, sever emphysema Medical History Osteopenia -DEXA 03/[address] abdomen- diverticulitis 03/2017 Medical History Dexa scan 03/2017- Osteopenia Surgical History heart surgery at age 8 Surgical History hernai repair Surgical History Colonoscopy 2009
--- OUTSIDE RECORDS SUMMARY | 2018-06-24 06:24 | XMS REPORT ---
Author Author MEHRDAD GALLARDO [facility] SHORE Address [address] [place] [address] Care Team Providers Care Accounts Receivable Manager Name Role Phone MEHRDAD GALLARDO Unavailable PROBLEMS Type Condition ICD9-CM Code SNE64-CV Code Onset Dates Condition Status SNOMED Code Problem Antibiotic long-term use Z79.2 Active 295708333 Problem TB (pulmonary tuberculosis) A15.0 Active 444929756 Problem Compression fracture of thoracic spine, non-traumatic, initial encounter M48.54XA Active 599129432 Problem No diagnosis on [place] I Z03.89 Active 8843900 Problem Nicotine abuse Z72.0 Active 17241175 Problem Chronic obstructive pulmonary disease, unspecified COPD type J44.9 Active 55925375 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 [id number], [place] [id number] May, [facility]ITALFrenchWebSHORELISA [place] [address] [facility] [id number], [place] [id number] May, Benign essential hypertension I10 ; Chronic obstructive pulmonary disease, unspecified COPD type J44.9 and Encounter for immunization Z23 [facility]ITALFrenchWebSHORE [address] [facility] [id number], [place] [id number] Apr, [facility]ITALFrenchWebSHORE [address] [facility] [id number], [place] [id number] Mar, [facility] [address] [place] [address] [facility] [id number], [place] [id number] Mar, Belching R14.2 ; Nausea R11.0 and Lower abdominal pain R10.30 [facility] [address] [id number], [place] [id number] Mar, Lower abdominal pain R10.30 ; Belching R14.2 ; Nausea R11.0 and Stomach cramps R10.9 [facility] [address] [id number], [place] [id number] Mar, Chronic obstructive pulmonary disease, unspecified COPD type J44.9 [facility] [address] [id number], [place] [id number] Feb, Low serum sodium R79.89 [facility] [address] [id number], [place] [id number] Feb, Compression fracture of thoracic spine, non-traumatic, initial encounter M48.54XA and Screening for osteoporosis Z13.820 [facility] [address] [id number], [place] [id number] January, Low serum sodium R79.89 [facility] [address] [id number], [place] [id number] January, Hyponatremia E87.1 [facility] [address] [id number], [place] [id number] January, Hyponatremia E87.1 [facility] [address] [id number], [place] [address] Dec, Chronic obstructive pulmonary disease, unspecified COPD type J44.9 ; Hypoxia R09.02 and Benign essential hypertension I10 [facility] [address] [id number], [place] [address] Dec, Low blood pressure reading R03.1 [facility] [address] [id number], [place] [id number] Dec, Low blood pressure reading R03.1 and Benign essential hypertension I10 [facility] [address] [id number], [place] [id number] Nov, Chronic obstructive pulmonary disease, unspecified COPD type J44.9 ; Benign essential hypertension I10 and Thrush B37.0 [facility]ALSE[facility] [address] [id number], [place] [id number] Oct, [facility] [id number], [place] [id number] Oct, [facility] [address] [id number], [place] [id number] Jul, No diagnosis on [place] I Z03.89 [facility] [address] [id number], [place] [id number] Jun, [facility] [address] [id number], [place] [address]86[address] Jun, Neck stiffness M43.6 ; Encounter for immunization Z23 and Muscle spasm M62.838 [facility]OSPITALPunch EntertainmentCuca SH[address] [id number], [place] [address] Feb, Other general symptoms and signs R68.89 [facility]PITALPunch EntertainmentCuca [address] [id number], [place] [address] January, Other general symptoms and signs R68.89 [facility]ITALPunch EntertainmentCuca [address] [id number], [place] [address]39[address] January, Benign essential hypertension I10 ; TB (pulmonary tuberculosis) A15.0 ; Antibiotic long-term use Z79.2 and Chronic obstructive pulmonary disease , unspecified COPD type J44.9 [facility]OSPITALCleverlizeTER [address] [id number], [place] [id number] January, [facility]ALSE[facility] [address] [id number], [place] 2367044[address] January, Nicotine abuse Z72.0 ; Benign essential hypertension I10 ; TB ( pulmonary tuberculosis) A15.0 ; Antibiotic long-term use Z79.2 and Chronic obstructive pulmonary disease, unspecified COPD type J44.9 [facility]OSPITALCleverlizeTER [address] [id number], [place] [id number] Jul, Encounter for immunization Z23 [facility] [address] [facility] [address] [id number] [place] [id number] Apr, Subclinical hyperthyroidism 242.90 ; TB lung, 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 [address] [id number] [place] [id number] Feb, Abnormal laboratory test 796.4 [facility] [address] [facility] [address] [id number] [place] [id number] Feb, COPD (chronic obstructive pulmonary disease) 496 ; History of tobacco abuse V15.82 ; Hypertension 401.9 ; Alcohol use V49.89 and TB ( tuberculosis) 011.90 IMMUNIZATIONS No Known Immunizations SOCIAL HISTORY Never Assessed REASON FOR VISIT refill PLAN OF CARE VITAL SIGNS MEDICATIONS Medication Instructions Dosage Frequency Start Date End Date Duration Status Benazepril HCl 5 mg Orally Once a day in AM 1 tablet Dec, Active RESULTS No Results PROCEDURES No Known procedures INSTRUCTIONS MEDICATIONS ADMINISTERED [...]
--- OUTSIDE RECORDS SUMMARY | 2018-06-24 06:24 | XMS REPORT ---
Author Author MEHRDAD GALLARDO [facility] SHORE Address [address] [place] [address] Care Team Providers Care Technical Customer Support Specialist Name Role Phone MEHRDAD GALLARDO Unavailable PROBLEMS Type Condition ICD9-CM Code DRR96-XV Code Onset Dates Condition Status SNOMED Code Problem Antibiotic long-term use Z79.2 Active 347386814 Problem TB (pulmonary tuberculosis) A15.0 Active 204888026 Problem Compression fracture of thoracic spine, non-traumatic, initial encounter M48.54XA Active 338279729 Problem No diagnosis on Pandora I Z03.89 Active 0228810 Problem Nicotine abuse Z72.0 Active 46490406 Problem Chronic obstructive pulmonary disease, unspecified COPD type J44.9 Active 78873115 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 91060049 Problem Benign essential hypertension I10 Active 1001805 ALLERGIES No Information ENCOUNTERS Encounter Location Date Diagnosis [facility] [facility] [address] [id number] [id number] Jun, Benign essential hypertension I10 [facility] MedicalCYNTHIA [facility] [address] [facility] [id number] [place] [id number] May, [facility]ITALSenSageSHORECYNTHIA VILLE [address] [facility] [id number] CREEK[place] [id number] May, Benign essential hypertension I10 ; Chronic obstructive pulmonary disease, unspecified COPD type J44.9 and Encounter for immunization Z23 [facility] [address] [facility] [id number] [place] [id number] Apr, [facility]age[facility] [address] [facility] [id number] CREEK[place] [id number] Mar, [facility] SH[address]ECYNTH[place] [address] [address] [facility] [id number] CREEK, [place] [id number] Mar, Belching R14.2 ; Nausea R11.0 and Lower abdominal pain R10.30 [facility] [address] [id number] CREEK[place] [address] Mar, Lower abdominal pain R10.30 ; Belching R14.2 ; Nausea R11.0 and Stomach cramps R10.9 [facility] [address] [id number] [place] [address] Mar, Chronic obstructive pulmonary disease, unspecified COPD type J44.9 [facility] [address] [id number] [place] [address]39[address] Feb, Low serum sodium R79.89 [facility] [address] [address] [id number] [place], [place] [address]35578[address] Feb, Compression fracture of thoracic spine, non-traumatic, initial encounter M48.54XA and Screening for osteoporosis Z13.820 [facility] [address] [id number] CREEK, [place] [id number] January, Low serum sodium R79.89 [facility] [address] [id number] [place], [place] [address] January, Hyponatremia E87.1 [facility] [address] [id number] [place]REEK, [place] [id number] January, Hyponatremia E87.1 [facility] [address] [id number] CREEK, [place] [id number] Dec, Chronic obstructive pulmonary disease, unspecified COPD type J44.9 ; Hypoxia R09.02 and Benign essential hypertension I10 [facility] [address] [id number] [place] [id number] Dec, Low blood pressure reading R03.1 [facility] [address] [id number] [place] [id number] Dec, Low blood pressure reading R03.1 and Benign essential hypertension I10 [facility] [address] [address] [id number] [place] [address] Nov, Chronic obstructive pulmonary disease, unspecified COPD type J44.9 ; Benign essential hypertension I10 and Thrush B37.0 [facility] [address] [address] [id number] [place], [place] [address] Oct, [facility] [address] [id number] [place] [id number] Oct, [facility] [address] [id number] [place] [id number] Jul, No diagnosis on Pandora I Z03.89 [facility] [address] [address] [id number] [place] [address] Jun, [facility] [address] [id number] C[place] [address] Jun, Neck stiffness M43.6 ; Encounter for immunization Z23 and Muscle spasm M62.838 [facility] CORBINColubris NetworksCuca SHORE [address] [id number] CREEK, [place] [address] Feb, Other general symptoms and signs R68.89 [facility] CORBINColubris NetworksCuca [address] [id number] [place], [place] 924[address] January, Other general symptoms and signs R68.89 [facility]BINColub[facility] NetworksCuca SH[address] [id number] [place]REEK, [place] [id number] January, Benign essential hypertension I10 ; TB (pulmonary tuberculosis) A15.0 ; Antibiotic long-term use Z79.2 and Chronic obstructive pulmonary disease , unspecified COPD type J44.9 [facility]BINSwan [facility] MedicalTER [address] [id number] [place]REEK, [place] [id number] January, [facility] [address] [id number] [place], [place] [id number] January, Nicotine abuse Z72.0 ; Benign essential hypertension I10 ; TB ( pulmonary tuberculosis) A15.0 ; Antibiotic long-term use Z79.2 and Chronic obstructive pulmonary disease, unspecified COPD type J44.9 [facility]BINS[facility] MedicalTER [address] [id number] [place], [place] [id number] Jul, Encounter for immunization Z23 [facility] [address] [facility] [address] [id number] [place] [id number] Apr, Subclinical hyperthyroidism 242.90 ; TB lung, 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 and COPD (chronic obstructive pulmonary disease) 496 [facility] [address] [id number] [place] [address] Feb, Abnormal laboratory test 796.4 [facility] [address] [facility] [address] [id number] [place] [id number] Feb, COPD (chronic obstructive pulmonary disease) 496 ; History of tobacco abuse V15.82 ; Hypertension 401.9 ; Alcohol use V49.89 and TB ( tuberculosis) 011.90 IMMUNIZATIONS No Known Immunizations SOCIAL HISTORY Never Assessed REASON FOR VISIT FYI PLAN OF CARE VITAL SIGNS MEDICATIONS Unknown Medications RESULTS No Results PROCEDURES No Known procedures [...]
--- OUTSIDE RECORDS SUMMARY | 2018-06-24 06:25 | XMS REPORT ---
Author Author MEHRDAD GALLARDO [facility] SHORE Address [address] [place] [address] Care Team Providers Care Plier Worker Name Role Phone MEHRDAD GALLARDO Unavailable PROBLEMS Type Condition ICD9-CM Code NOM73-WC Code Onset Dates Condition Status SNOMED Code Problem Antibiotic long-term use Z79.2 Active 177012440 Problem TB (pulmonary tuberculosis) A15.0 Active 097267460 Problem Compression fracture of thoracic spine, non-traumatic, initial encounter M48.54XA Active 527372011 Problem No diagnosis on [place] I Z03.89 Active 7920562 Problem Nicotine abuse Z72.0 Active 59232488 Problem Chronic obstructive pulmonary disease, unspecified COPD type J44.9 Active 42347510 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 30272936 Problem Benign essential hypertension I10 Active 5702876 ALLERGIES No Information ENCOUNTERS Encounter Location Date Diagnosis [facility] [address] [id number] [place] [id number] Jun, Benign essential hypertension I10 [facility] CENTERROXIMITYSHOREKRISTEN V[place] [address] [facility] [id number] [place] [id number] May, [facility]ENTERROXIMITYSHOREKRISTEN [place] [address] [facility] [id number] [place] [id number] May, Benign essential hypertension I10 ; Chronic obstructive pulmonary disease, unspecified COPD type J44.9 and Encounter for immunization Z23 [facility]ENTERROXIMITYSHORE [address] [facility] [id number] [place] [id number] Apr, [facility]ENTERROXIMITYSHOREKRISTEN [place] [address] [facility] [id number] [place] [id number] Mar, [facility] SHOREKRISTEN [place] [address] [facility] [id number] [place] [id number] Mar, Belching R14.2 ; Nausea R11.0 and Lower abdominal pain R10.30 [facility] [address] [id number] [place] [id number] Mar, Lower abdominal pain R10.30 ; Belching R14.2 ; Nausea R11.0 and Stomach cramps R10.9 [facility] [address] [address] [id number] [place] [address]39259[address] Mar, Chronic obstructive pulmonary disease, unspecified COPD type J44.9 [facility] [address] [id number] [place] [id number] Feb, Low serum sodium R79.89 [facility] [address] [id number] [place] [id number] Feb, Compression fracture of thoracic spine, non-traumatic, initial encounter M48.54XA and Screening for osteoporosis Z13.820 [facility] [address] [id number] [place], [place] 555306504 January, Low serum sodium R79.89 [facility] [address] [id number] [place] 7824313[address] January, Hyponatremia E87.1 [facility] [address] [id number] [place] [id number] January, Hyponatremia E87.1 [facility] [address] [id number] 9[address] Dec, Chronic obstructive pulmonary disease, unspecified COPD type J44.9 ; Hypoxia R09.02 and Benign essential hypertension I10 [facility] [address] [address] [id number] [place], [place] 8[address]4669[address] Dec, Low blood pressure reading R03.1 [facility] [address] [id number] [place] 3569[address] Dec, Low blood pressure reading R03.1 and Benign essential hypertension I10 [facility] [address] [address] [id number] [place] [id number] Nov, Chronic obstructive pulmonary disease, unspecified COPD type J44.9 ; Benign essential hypertension I10 and Thrush B37.0 [facility] [address] [id number], [place] [id number] Oct, [facility] [id number] [place], [place] 606[address] Oct, [facility] [address] [id number] [place] 77[address]32[address] Jul, No diagnosis on [place] I Z03.89 [facility] [address] [id number] [place] [address] Jun, [facility] [id number] [place] 225143876 Jun, Neck stiffness M43.6 ; Encounter for immunization Z23 and Muscle spasm M62.838 [facility]ELEcov[facility] [address] [address] [id number] [address]8467[address] Feb, Other general symptoms and signs R68.89 [facility] [id number] [place], [place] [address]89195135 January, Other general symptoms and signs R68.89 [facility] [address] [id number] [place] [address]25220[address] January, Benign essential hypertension I10 ; TB (pulmonary tuberculosis) A15.0 ; Antibiotic long-term use Z79.2 and Chronic obstructive pulmonary disease , unspecified COPD type J44.9 [facility]ELBrekford CorpTER [address] [id number] [place], [place] 1623[address] January, [facility] [address] [id number] [place], [place] 704[address] January, Nicotine abuse Z72.0 ; Benign essential hypertension I10 ; TB ( pulmonary tuberculosis) A15.0 ; Antibiotic long-term use Z79.2 and Chronic obstructive pulmonary disease, unspecified COPD type J44.9 [facility]ELBrekford CorpTER [address] [id number] [place] 6487[address] Jul, Encounter for immunization Z23 [facility] [address] [facility] [address] [id number] [place] [id number] Apr, Subclinical hyperthyroidism 242.90 ; TB lung, 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 and COPD (chronic obstructive pulmonary disease) 496 [facility] [address] [id number] [place] [address] Feb, Abnormal laboratory test 796.4 [facility] [address] [facility] [address] [id number] [place] [address] Feb, COPD (chronic obstructive pulmonary disease) 496 ; History of tobacco abuse V15.82 ; Hypertension 401.9 ; Alcohol use V49.89 and TB ( tuberculosis) 011.90 IMMUNIZATIONS No Known Immunizations SOCIAL HISTORY Never Assessed REASON FOR VISIT Ct scan results PLAN OF CARE VITAL SIGNS MEDICATIONS Unknown Medications RESULTS No Results PROCEDURES No Known procedures INSTRUCTIONS MEDICATIONS ADMINISTERED No Known Medications MEDICAL (GENERAL) HISTORY Type Description Date Medical History COPD/ pt wears oxygen at night 2L (PFT 2012, CT chest 2012 showing severe COPD/Emphysema)-[place] Medical History asthma Medical History arthritis Medical History hypertension Medical History TB- on treatment as of 01/2015 [facility] Medical History CT chest 02/2017- Stable nodules from 12/2014, T6 compression fracture, sever emphysema Medical History Osteopenia -DEXA 03/[address] abdomen- diverticulitis 03/2017 Medical History Dexa scan 03/2017- Osteopenia Surgical History heart surgery at age 8 Surgical History hernai repair Surgical History Colonoscopy 2009
--- OUTSIDE RECORDS SUMMARY | 2018-06-24 06:25 | XMS REPORT ---
Author Author [facility]AD [facility]O [facility] Address [address] [place] [address] Care Team Providers Care Ems Driver Name Role Phone MEHRDAD GALLARDO Unavailable PROBLEMS Type Condition ICD9-CM Code VMG66-TH Code Onset Dates Condition Status SNOMED Code Problem Antibiotic long-term use Z79.2 Active 591977907 Problem TB (pulmonary tuberculosis) A15.0 Active 833533319 Problem Compression fracture of thoracic spine, non-traumatic, initial encounter M48.54XA Active 095516592 Problem No diagnosis on [place]an[place] I Z03.89 Active 8136126 Problem Nicotine abuse Z72.0 Active 31736565 Problem Chronic obstructive pulmonary disease, unspecified COPD type J44.9 Active 04874639 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
--- OUTSIDE RECORDS SUMMARY | 2018-06-24 06:25 | XMS REPORT ---
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
--- OUTSIDE RECORDS SUMMARY | 2018-06-24 06:25 | XMS REPORT ---
Author Author MEHRDAD GALLARDO [facility] Address [address] [place] [address] Care Team Providers Care Process Development Associate Name Role Phone MEHRDAD GALLARDO Unavailable PROBLEMS Type Condition ICD9-CM Code RFT11-QT Code Onset Dates Condition Status SNOMED Code Problem Antibiotic long-term use Z79.2 Active 043230557 Problem TB (pulmonary tuberculosis) A15.0 Active 280574189 Problem Compression fracture of thoracic spine, non-traumatic, initial encounter M48.54XA Active 740621261 Problem No diagnosis on [place] I Z03.89 Active 9395155 Problem Nicotine abuse Z72.0 Active 76549027 Problem Chronic obstructive pulmonary disease, unspecified COPD type J44.9 Active 80020633 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 24935892 Problem Benign essential hypertension I10 Active 8813833 ALLERGIES No Known Allergies ENCOUNTERS Encounter Location Date Diagnosis [facility] [place] [address] [facility] [id number], [place] [id number] Jun, Benign essential hypertension I10 [facility] SHORE[address] [id number], [place] [id number] May, [facility] SHORE[address] [id number], [place] [address] May, Benign essential hypertension I10 ; Chronic obstructive pulmonary disease, unspecified COPD type J44.9 and Encounter for immunization Z23 [facility] SH[address]ETINA [place] [address] [facility] [id number], [place] [id number] Apr, [facility]ide[facility]ocketSHORE[address] [id number], [place] [address] Mar, [facility] SHORE[address] [id number], [place] [address] Mar, Belching R14.2 ; Nausea R11.0 and Lower abdominal pain R10.30 [facility] [address] [id number], [place] 465316761 Mar, Lower abdominal pain R10.30 ; Belching R14.2 ; Nausea R11.0 and Stomach cramps R10.9 [facility] [address] [address] [id number], [place] [id number] Mar, Chronic obstructive pulmonary disease, unspecified COPD type J44.9 [facility] [address] [address] [id number], [place] 193779856 Feb, Low serum sodium R79.89 [facility] [address] [id number], [place] 7939784[address] Feb, Compression fracture of thoracic spine, non-traumatic, initial encounter M48.54XA and Screening for osteoporosis Z13.820 [facility] [address] [address] [id number], [place] 4391077[address] January, Low serum sodium R79.89 [facility] [address] [id number], [place] [address] January, Hyponatremia E87.1 [facility] [address] [id number], [place] 238192802 January, Hyponatremia E87.1 [facility] [address] [id number], [place] 600835133 Dec, Chronic obstructive pulmonary disease, unspecified COPD type J44.9 ; Hypoxia R09.02 and Benign essential hypertension I10 [facility] [address] [id number], [place] [address]38[address] Dec, Low blood pressure reading R03.1 [facility] [address] [id number], [place] 901192071 Dec, Low blood pressure reading R03.1 and Benign essential hypertension I10 [facility] [address] [id number], [place] [address] Nov, Chronic obstructive pulmonary disease, unspecified COPD type J44.9 ; Benign essential hypertension I10 and Thrush B37.0 [facility] [address] [id number], [place] [address]90[address] Oct, [facility] [address] [id number], [place] [address]38[address] Oct, [facility] [address] [id number], [place] [address]4310[address] Jul, No diagnosis on [place] I Z03.89 [facility] [address] [id number], [place] [address] Jun, [facility] [address] [id number], [place] 46[address]25[address] Jun, Neck stiffness M43.6 ; Encounter for immunization Z23 and Muscle spasm M62.838 [facility] SH[facility] [address] [id number], [place] [address] Feb, Other general symptoms and signs R68.89 [facility]ITALNova LignumCuca [address] [id number], [place] 200331834 January, Other general symptoms and signs R68.89 [facility] SH[address] [id number], [place] [address]2640[address] January, Benign essential hypertension I10 ; TB (pulmonary tuberculosis) A15.0 ; Antibiotic long-term use Z79.2 and Chronic obstructive pulmonary disease , unspecified COPD type J44.9 [facility]ITALHookedTER [address] [id number], [place] [address]146[address] January, [facility] [address] [address] [id number], [place] [address]48624[address] January, Nicotine abuse Z72.0 ; Benign essential hypertension I10 ; TB ( pulmonary tuberculosis) A15.0 ; Antibiotic long-term use Z79.2 and Chronic obstructive pulmonary disease, unspecified COPD type J44.9 [facility]ITAL[facility]edTER [address] [id number], [place] [address] Jul, Encounter for immunization Z23 [facility] [address] [facility] [address] [id number] [place] [address] Apr, Subclinical hyperthyroidism 242.90 ; TB lung, 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 and COPD (chronic obstructive pulmonary disease) 496 [facility] [address] [id number] [place] [id number] Feb, Abnormal laboratory test 796.4 [facility] [address] [id number] [place] [address] Feb, COPD (chronic obstructive pulmonary disease) 496 ; History of tobacco abuse V15.82 ; Hypertension 401.9 ; Alcohol use V49.89 and TB ( tuberculosis) 011.90 IMMUNIZATIONS No Known Immunizations SOCIAL HISTORY Never Assessed REASON FOR VISIT Abdominal pain- pt voices x 3 days had stomach ache, voices he took a laxative ( womans correctal), 3 days ago. voices bowels are moving good, c/o burping more nicki pereyra PLAN OF CARE Activity Details Follow Up 2 - 3 Days Reason:order CT if abd pain not improved VITAL SIGNS Height 65 in 2017-04-20 Weight 105.2 lbs 2017-04-20 Temperature 98.1 degrees Fahrenheit 2017-04-20 Heart Rate 116 bpm 2017-04-20 Respiratory Rate 20 2017-04-20 BMI 17.50 kg/m2 2017-04-20 Blood pressure systolic 82 mmHg 2017-04-20 Blood pressure diastolic 44 mmHg 2017-04-20 MEDICATIONS Medication Instructions Dosage Frequency Start Date End Date Duration Status Acidophilus 100 mg Orally Once a day 1 capsule 24h 0 Active Simethicone 80 MG Orally Four times a day 1 tablet after meals and at bedtime as needed 6h Mar, Mar, 07 days Active Benazepril HCl 5 MG Orally Once a day in AM 1 tablet Dec, Active Combivent Respimat 20-100 MCG/ACT Inhalation Four times a day 1 puff 6h Nov, 0 days Active Advair Diskus 500-50 MCG/DOSE INHALE ONE PUFF TWICE DAILY 30 Active Zofran 8 MG Orally every 8 hours as needed for nausea 1 tablet Mar, 05 days Active Flagyl 500 mg Orally 2 times a day 1 tablet 12h Mar, Mar, 07 days Active Albuterol Sulfate (2.5 MG/3ML) 0.083% Inhalation Three times a day 3 ml 8h Active Ethambutol HCl 400 MG Active Moxifloxacin HCl 400 MG Orally Once a day 1 tablet 24h Active RESULTS No Results PROCEDURES Procedure Date Ordered Result Body Site IMMUNOASSAY,INFECTIOUS AGENT April 20, 2017 INSTRUCTIONS MEDICATIONS ADMINISTERED No Known Medications [...]
--- OUTSIDE RECORDS SUMMARY | 2018-06-24 06:25 | XMS REPORT ---
Author Author MEHRDAD GALLARDO Organization [facility] Address [address] [place] [address] Care Team Providers Care Personal Trainer Name Role Phone MEHRDAD GALLARDO Unavailable PROBLEMS Type Condition ICD9-CM Code PUH98-DO Code Onset Dates Condition Status SNOMED Code Problem Antibiotic long-term use Z79.2 Active 770236843 Problem TB (pulmonary tuberculosis) A15.0 Active 955184853 Problem Compression fracture of thoracic spine, non-traumatic, initial encounter M48.54XA Active 028104276 Problem No diagnosis on [place] I Z03.89 Active 3455478 Problem Nicotine abuse Z72.0 Active 52692542 Problem Chronic obstructive pulmonary disease, unspecified COPD type J44.9 Active 75441728 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
--- OUTSIDE RECORDS SUMMARY | 2018-06-24 06:25 | XMS REPORT ---
Author Author MEHRDAD GALLARDO [facility] Address [address] [place] [address] Care Team Providers Care Guidance Director Name Role Phone MEHRDAD GALLARDO Unavailable PROBLEMS Type Condition ICD9-CM Code SXI33-YR Code Onset Dates Condition Status SNOMED Code Problem Antibiotic long-term use Z79.2 Active 818727418 Problem TB (pulmonary tuberculosis) A15.0 Active 841371843 Problem Compression fracture of thoracic spine, non-traumatic, initial encounter M48.54XA Active 293291922 Problem No diagnosis on [place] I Z03.89 Active 1587584 Problem Nicotine abuse Z72.0 Active 74986391 Problem Chronic obstructive pulmonary disease, unspecified COPD type J44.9 Active 97635815 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 66906727 Problem Benign essential hypertension I10 Active 6992438 ALLERGIES No Information ENCOUNTERS Encounter Location Date Diagnosis [facility] [id number] [phone] Jun, Benign essential hypertension I10 [facility] [place]USRo[place]yn[place] [address] [facility] [id number] [place] [phone] May, [facility] [address] [facility] [id number] [place] [id number] May, Benign essential hypertension I10 ; Chronic obstructive pulmonary disease, unspecified COPD type J44.9 and Encounter for immunization Z23 [facility] [address] [facility] [id number] [place] [id number] Apr, [facility] [address] [facility] [id number] [place] [id number] Mar, [facility] [place] [address] [facility] [id number] [place]ILL[place] [id number] Mar, Belching R14.2 ; Nausea R11.0 and Lower abdominal pain R10.30 [facility] [address] [address] [id number] [place] [id number] Mar, Lower abdominal pain R10.30 ; Belching R14.2 ; Nausea R11.0 and Stomach cramps R10.9 [facility] [address] [id number] [place]ILL[place] [id number] Mar, Chronic obstructive pulmonary disease, unspecified COPD type J44.9 [facility] [address] [id number] [place] [id number] Feb, Low serum sodium R79.89 [facility] [address] [id number] [place] [id number] Feb, Compression fracture of thoracic spine, non-traumatic, initial encounter M48.54XA and Screening for osteoporosis Z13.820 [facility] [address] [id number] [place] [id number] January, Low serum sodium R79.89 [facility] [address] [id number] [place] [id number] January, Hyponatremia E87.1 [facility] [address] [id number] [place]ILL[place] [id number] January, Hyponatremia E87.1 [facility] [address] [id number] [place] [id number] Dec, Chronic obstructive pulmonary disease, unspecified COPD type J44.9 ; Hypoxia R09.02 and Benign essential hypertension I10 [facility] [address] [address] [id number] [place]ILL[place] [id number] Dec, Low blood pressure reading R03.1 [facility] [address] [id number] [place]ILL[place] [id number] Dec, Low blood pressure reading R03.1 and Benign essential hypertension I10 [facility] [address] [id number] [place] [id number] Nov, Chronic obstructive pulmonary disease, unspecified COPD type J44.9 ; Benign essential hypertension I10 and Thrush B37.0 [facility] [address] [address] [id number] [place]ILL[place] [id number] Oct, [facility] [id number] [place]ILL[place] [id number] Oct, [facility] [address] [id number] [place]ILL[place] [id number] Jul, No diagnosis on [place] I Z03.89 [facility] [address] [address] [id number] [place]ILL[place] [id number] Jun, [facility] [address] [id number] HILL[place] [id number] Jun, Neck stiffness M43.6 ; Encounter for immunization Z23 and Muscle spasm M62.838 [facility]ENTERThomsons Online BenefitsCuca [address] [id number] [place]ILL, [place] [id number] Feb, Other general symptoms and signs R68.89 [facility]Thoms[facility] Online BenefitsC[address] [id number] [place] [id number] January, Other general symptoms and signs R68.89 [facility] BenefitsC[facility] [address] [id number] [place]ILL[place] [phone] January, Benign essential hypertension I10 ; TB (pulmonary tuberculosis) A15.0 ; Antibiotic long-term use Z79.2 and Chronic obstructive pulmonary disease , unspecified COPD type J44.9 [facility]ENTERSalutaris Medical DevicesTER [address] [id number] [place] [id number] January, [facility] [address] [address] [id number] HILL, [place] [id number] January, Nicotine abuse Z72.0 ; Benign essential hypertension I10 ; TB ( pulmonary tuberculosis) A15.0 ; Antibiotic long-term use Z79.2 and Chronic obstructive pulmonary disease, unspecified COPD type J44.9 [facility]ERSalut[facility] Medical DevicesTER [address] [id number] HILL, [place] [id number] Jul, Encounter for immunization Z23 [facility] [address] [id number] [place] [id number] Apr, Subclinical hyperthyroidism 242.90 ; TB lung, 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 and COPD (chronic obstructive pulmonary disease) 496 [facility] [address] [id number] [place] [id number] Feb, Abnormal laboratory test 796.4 [facility] [address] [id number] [place] [id number] Feb, COPD (chronic obstructive pulmonary disease) 496 ; History of tobacco abuse V15.82 ; Hypertension 401.9 ; Alcohol use V49.89 and TB ( tuberculosis) 011.90 IMMUNIZATIONS No Known Immunizations SOCIAL HISTORY Never Assessed REASON FOR VISIT stomach PLAN OF CARE VITAL SIGNS MEDICATIONS Unknown Medications RESULTS Name Result Date Reference Range CT Scan : Abdomen & Pelvis w/o Contrast 2017-04-24 PROCEDURES No Known procedures INSTRUCTIONS MEDICATIONS ADMINISTERED [...]
--- OUTSIDE RECORDS SUMMARY | 2018-06-24 06:25 | XMS REPORT ---
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 Active 687414858 Problem Compression fracture of thoracic spine, non-traumatic, initial encounter M48.54XA Active 354095264 Problem No diagnosis on [place] I Z03.89 Active 4354752 Problem Nicotine abuse Z72.0 Active 67154430 Problem Chronic obstructive pulmonary disease, unspecified COPD type J44.9 Active 68542402 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 56927165 Problem Benign essential hypertension I10 Active 2007957 ALLERGIES No Known Allergies SOCIAL HISTORY Never Assessed PLAN OF CARE Activity Details Follow Up 6 Months Reason:BP/COPD- fasting labs VITAL SIGNS Height 65 in 2016-12-02 Weight 120 lbs 2016-12-02 Temperature 97.4 degrees Fahrenheit 2016-12-02 Heart Rate 90 bpm 2016-12-02 Respiratory Rate 16 2016-12-02 BMI 19.97 kg/m2 2016-12-02 Blood pressure systolic 118 mmHg 2016-12-02 Blood pressure diastolic 68 mmHg 2016-12-02 MEDICATIONS Medication Instructions Dosage Frequency Start Date End Date Duration Status Amlodipine Besy-Benazepril HCl 10-20 MG Orally Once a day 1 capsule 24h Active Nystatin 686759 UNIT/ML Mouth/Throat 3 times a day- swish and swallow 5ml Nov, Nov, 07 days Active Combivent Respimat 20-100 MCG/ACT Inhalation Four times a day 1 puff 6h Nov, Active Advair Diskus 500-50 MCG/DOSE Inhalation Twice a day 1 puff 12h Active Ethambutol HCl 400 MG Active Moxifloxacin HCl 400 MG Orally Once a day 1 tablet 24h Active Combivent Respimat 20-100 MCG/ACT Inhalation Four times a day 1 puff 6h Active Albuterol Sulfate (2.5 MG/3ML) 0.083% Inhalation Three times a day 3 ml 8h Active RESULTS No Results PROCEDURES No Known [...]
--- OUTSIDE RECORDS SUMMARY | 2018-06-24 06:25 | XMS REPORT ---
Author MEHRDAD [facility] eClinicalWorks Address Unknown Phone Unavailable Care Team Providers Care Nurse Chemical Dependency Name Role Phone MEHRDAD GALLARDO CP Unavailable Allergies, Adverse Reactions, Alerts Substance Reaction Event Type N.K.D.A. 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 [address]-89 10-20 MG Orally Once a day 1 capsule Moxifloxacin HCl [facility] [address]-58 400 MG Orally Once a day 1 tablet Clarithromycin [facility] [address]-43 500 MG Orally Twice a day 1 tablet Ethambutol HCl [facility] [address]-27 400 MG Orally not defined Ventolin HFA [facility] [address]-96 108 (90 Base) MCG/ACT Inhalation every 4 hrs 2 puffs as needed Combivent Respimat [facility] [address]-48 20-100 MCG/ACT Inhalation Four times a day 1 puff Procedures Procedure Coding System Code Date ASSAY THYROID STIM HORMONE CPT-4 22390 May 22, 2015 VENIPUNCT, ROUTINE* CPT-4 65551 May 22, 2015 MEASURE BLOOD OXYGEN LEVEL CPT-4 90289 May 22, 2015 Office Visit, Est Pt., Level 3 CPT-4 88543 May 22, 2015 Vital Signs Date/Time: May 22, 2015 Temperature 98.0 F Weight 110.4 lbs Height 65 in Oximetry 97 % Blood Pressure Diastolic 62 mmHg Blood Pressure Systolic 100 mmHg Cardiac Monitoring Heart Rate 100 bpm BMI 18.37 Index Results Name Result Date Reference Range Unit Abnormality Flag ROUTINE VENIPUNCTURE Summary Purpose eClinicalWorks Submission
--- OUTSIDE RECORDS SUMMARY | 2018-06-24 06:25 | XMS REPORT ---
Author Author MEHRDAD GALLARDO Organization [facility] Address [address] [place] [address] Care Team Providers Care Peoplesoft Hrms Developer Name Role Phone MEHRDAD GALLARDO Unavailable PROBLEMS Type Condition ICD9-CM Code NMA57-BZ Code Onset Dates Condition Status SNOMED Code Problem Antibiotic long-term use Z79.2 Active 081272100 Problem TB (pulmonary tuberculosis) A15.0 Active 252858384 Problem Compression fracture of thoracic spine, non-traumatic, initial encounter M48.54XA Active 408572822 Problem No diagnosis on [place] I Z03.89 Active 6563646 Problem Nicotine abuse Z72.0 Active 47491618 Problem Chronic obstructive pulmonary disease, unspecified COPD type J44.9 Active 85208362 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
--- OUTSIDE RECORDS SUMMARY | 2018-06-24 06:25 | XMS REPORT ---
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
--- OUTSIDE RECORDS SUMMARY | 2018-06-24 06:25 | XMS REPORT ---
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
--- OUTSIDE RECORDS SUMMARY | 2018-06-24 06:26 | XMS REPORT ---
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
--- OUTSIDE RECORDS SUMMARY | 2018-06-24 06:27 | XMS REPORT | Continuity of Care Document ---
Author Author [facility] Organization [facility] Address Unknown Phone Unavailable Allergies Active Description Code Type Severity Reaction Onset Reported/Identified Relationship to Patient Clinical Status Yes No Known Drug Allergies [id number] Drug Allergy Unknown N/A 12/03/2016 Medications There is no data. Problems Date Dx Coded Attending Type Code Diagnosis Diagnosed By 08/27/1518 TYLER ARREOLA LIME KILN OPERATOR Ot A31.9 MYCOBACTERIAL INFECTION, UNSPECIFIED 08/27/1518 TYLER ARREOLA LIME KILN OPERATOR Ot J44.9 CHRONIC OBSTRUCTIVE PULMONARY DISEASE, U 08/27/1518 TYLER ARREOLA LIME KILN OPERATOR Ot R91.1 SOLITARY PULMONARY NODULE 08/27/1518 TYLER ARREOLA LIME KILN OPERATOR Ot Z72.0 TOBACCO USE 08/15/2015 TYLER ARREOLA LIME KILN OPERATOR Ot J44.9 08/15/2015 TYLER ARREOLA LIME KILN OPERATOR Ot R91.1 08/15/2015 TYLER ARREOLA LIME KILN OPERATOR Ot Z72.0 08/21/2015 TYLER ARREOLA LIME KILN OPERATOR Ot A31.0 08/21/2015 TYLER ARREOLA LIME KILN OPERATOR Ot J44.9 08/21/2015 TYLER ARREOLA LIME KILN OPERATOR Ot R91.1 08/21/2015 TYLER ARREOLA LIME KILN OPERATOR Ot Z72.0 08/27/2015 TYLER ARREOLA LIME KILN OPERATOR Ot J44.9 08/27/2015 TYLER ARREOLA LIME KILN OPERATOR Ot R91.1 08/27/2015 TYLER ARREOLA LIME KILN OPERATOR Ot Z72.0 08/28/2015 TYLER ARREOLA LIME KILN OPERATOR Ot A31.0 08/28/2015 TYLER ARREOLA LIME KILN OPERATOR Ot J44.9 08/28/2015 TYLER ARREOLA LIME KILN OPERATOR Ot R91.1 08/28/2015 TYLER ARREOLA LIME KILN OPERATOR Ot Z72.0 08/29/2015 TYLER ARREOLA LIME KILN OPERATOR Ot 031.0 08/29/2015 TYLER ARREOLA LIME KILN OPERATOR Ot 496 08/29/2015 TYLER ARREOLA LIME KILN OPERATOR Ot 793.11 08/29/2015 TYLER ARREOLA LIME KILN OPERATOR Ot A31.0 08/29/2015 TYLER ARREOLA LIME KILN OPERATOR Ot J44.9 08/29/2015 TYLER ARREOLA LIME KILN OPERATOR Ot R91.1 08/29/2015 TYLER ARREOLA LIME KILN OPERATOR Ot V69.8 08/29/2015 TYLER ARREOLA LIME KILN OPERATOR Ot Z72.0 09/13/2015 TYLER ARREOLA LIME KILN OPERATOR Ot J44.9 09/13/2015 TYLER ARREOLA LIME KILN OPERATOR Ot R91.1 11/13/2015 TYLER ARREOLA LIME KILN OPERATOR Ot A31.0 PULMONARY MYCOBACTERIAL INFECTION 11/13/2015 TYLER ARREOLA LIME KILN OPERATOR Ot J44.9 CHRONIC OBSTRUCTIVE PULMONARY DISEASE, U 11/13/2015 TYLER ARREOLA LIME KILN OPERATOR Ot R91.1 SOLITARY PULMONARY NODULE 11/13/2015 TYLER ARREOLA LIME KILN OPERATOR Ot Z72.0 TOBACCO USE 11/18/2015 TYLER ARREOLA LIME KILN OPERATOR Ot J44.9 CHRONIC OBSTRUCTIVE PULMONARY DISEASE, U 11/18/2015 TYLER ARREOLA LIME KILN OPERATOR Ot R91.1 SOLITARY PULMONARY NODULE 01/09/2016 TYLER ARREOLA LIME KILN OPERATOR Ot A31.9 03/21/2016 TYLER ARREOLA LIME KILN OPERATOR Ot J44.9 CHRONIC OBSTRUCTIVE PULMONARY DISEASE, U 03/21/2016 TYLER ARREOLA LIME KILN OPERATOR Ot R91.1 SOLITARY PULMONARY NODULE 03/21/2016 TYLER ARREOLA LIME KILN OPERATOR Ot Z72.0 TOBACCO USE 03/21/2016 TYLER ARREOLA LIME KILN OPERATOR Ot 031.0 PULMONARY MYCOBACTERIA 03/21/2016 TYLER ARREOLA LIME KILN OPERATOR Ot 496 CHR AIRWAY OBSTRUCT NEC 03/21/2016 TYLER ARREOLA LIME KILN OPERATOR Ot 793.11 SOLITARY PULMONARY NODULE 03/21/2016 TYLER ARREOLA LIME KILN OPERATOR Ot A31.0 PULMONARY MYCOBACTERIAL INFECTION 03/21/2016 TYLER ARREOLA LIME KILN OPERATOR Ot J44.9 CHRONIC OBSTRUCTIVE PULMONARY DISEASE, U 03/21/2016 ELBA, TYLER E LIME KILN OPERATOR Ot R91.1 SOLITARY PULMONARY NODULE 03/21/2016 ELBA TYLER E LIME KILN OPERATOR Ot V69.8 OTHER PROBLEMS RELATED TO LIFESTYLE 03/21/2016 ELBA, TYLER E LIME KILN OPERATOR Ot Z72.0 TOBACCO USE 03/21/2016 JEAN ARREOLAINE E LIME KILN OPERATOR Ot J44.9 CHRONIC OBSTRUCTIVE PULMONARY DISEASE, U 03/21/2016 ELBAJEAN CAMILOINE E LIME KILN OPERATOR Ot R91.1 SOLITARY PULMONARY NODULE 03/21/2016 JEAN ARREOLAINE E LIME KILN OPERATOR Ot A31.9 MYCOBACTERIAL INFECTION, UNSPECIFIED 03/25/2016 ELBA, TYLER E LIME KILN OPERATOR Ot A31.9 MYCOBACTERIAL INFECTION, UNSPECIFIED 04/09/2016 ELBA, TYLER E LIME KILN OPERATOR Ot A31.9 MYCOBACTERIAL INFECTION, UNSPECIFIED 04/09/2016 ELBAJEAN CAMILOINE E LIME KILN OPERATOR Ot J44.9 CHRONIC OBSTRUCTIVE PULMONARY DISEASE, U 04/09/2016 ELBATYLER CAMILO E LIME KILN OPERATOR Ot R91.1 SOLITARY PULMONARY NODULE 04/09/2016 TYLER ARREOLA LIME KILN OPERATOR Ot Z72.0 TOBACCO USE 04/11/2016 JEAN ARREOLAINE E LIME KILN OPERATOR Ot A31.9 MYCOBACTERIAL INFECTION, UNSPECIFIED 04/11/2016 ELBAJEAN CAMILOINE E LIME KILN OPERATOR Ot J44.9 CHRONIC OBSTRUCTIVE PULMONARY DISEASE, U 04/11/2016 JEAN ARREOLAINE E LIME KILN OPERATOR Ot R91.1 SOLITARY PULMONARY NODULE 04/11/2016 JEAN ARREOLAINE E LIME KILN OPERATOR Ot Z72.0 TOBACCO USE 05/09/2016 TYLER ARREOLA E LIME KILN OPERATOR Ot A31.9 MYCOBACTERIAL INFECTION, UNSPECIFIED 05/09/2016 JEAN ARREOLAINE E LIME KILN OPERATOR Ot J44.9 CHRONIC OBSTRUCTIVE PULMONARY DISEASE, U 05/09/2016 JEAN ARREOLAINE E LIME KILN OPERATOR Ot R91.1 SOLITARY PULMONARY NODULE 05/09/2016 ELBA TYLER E LIME KILN OPERATOR Ot Z72.0 TOBACCO USE 06/09/2016 ELBAJEAN CAMILOINE E LIME KILN OPERATOR Ot A31.9 MYCOBACTERIAL INFECTION, UNSPECIFIED 06/09/2016 JEAN ARREOLAINE E LIME KILN OPERATOR Ot J44.9 CHRONIC OBSTRUCTIVE PULMONARY DISEASE, U 06/09/2016 ELBAJEAN CAMILOINE E LIME KILN OPERATOR Ot R91.1 SOLITARY PULMONARY NODULE 06/09/2016 JEAN ARREOLAINE E LIME KILN OPERATOR Ot Z72.0 TOBACCO USE 06/10/2016 TYLER ARREOLA LIME KILN OPERATOR Ot A31.9 MYCOBACTERIAL INFECTION, UNSPECIFIED 06/30/2016 TYLER ARREOLA LIME KILN OPERATOR Ot J44.9 CHRONIC OBSTRUCTIVE PULMONARY DISEASE, U 06/30/2016 TYLER ARREOLA LIME KILN OPERATOR Ot R91.1 SOLITARY PULMONARY NODULE 06/30/2016 TYLER ARREOLA LIME KILN OPERATOR Ot Z72.0 TOBACCO USE 06/30/2016 TYLER ARREOLA LIME KILN OPERATOR Ot 031.0 PULMONARY MYCOBACTERIA 06/30/2016 JEAN ARREOLAINE Trish LIME KILN OPERATOR Ot 496 CHR AIRWAY OBSTRUCT NEC 06/30/2016 JEAN ARREOLAINE E LIME KILN OPERATOR Ot 793.11 SOLITARY PULMONARY NODULE 06/30/2016 TYLER ARREOLA LIME KILN OPERATOR Ot A31.0 PULMONARY MYCOBACTERIAL INFECTION 06/30/2016 TYLER ARREOLA LIME KILN OPERATOR Ot J44.9 CHRONIC OBSTRUCTIVE PULMONARY DISEASE, U 06/30/2016 TYLER ARREOLA LIME KILN OPERATOR Ot R91.1 SOLITARY PULMONARY NODULE 06/30/2016 TYLER ARREOLA LIME KILN OPERATOR Ot V69.8 OTHER PROBLEMS RELATED TO LIFESTYLE 06/30/2016 TYLER ARREOLA LIME KILN OPERATOR Ot Z72.0 TOBACCO USE 06/30/2016 TYLER ARREOLA LIME KILN OPERATOR Ot J44.9 CHRONIC OBSTRUCTIVE PULMONARY DISEASE, U 06/30/2016 TYLER ARREOLA LIME KILN OPERATOR Ot R91.1 SOLITARY PULMONARY NODULE 06/30/2016 TYLER ARREOLA LIME KILN OPERATOR Ot A31.9 MYCOBACTERIAL INFECTION, UNSPECIFIED 06/30/2016 TYLER ARREOLA LIME KILN OPERATOR Ot A31.9 MYCOBACTERIAL INFECTION, UNSPECIFIED 06/30/2016 TYLER ARREOLA LIME KILN OPERATOR Ot A31.9 MYCOBACTERIAL INFECTION, UNSPECIFIED 06/30/2016 JEAN ARREOLAINE Trish LIME KILN OPERATOR Ot J44.9 CHRONIC OBSTRUCTIVE PULMONARY DISEASE, U 06/30/2016 TYLER ARREOLA LIME KILN OPERATOR Ot R91.1 SOLITARY PULMONARY NODULE 06/30/2016 TYLER ARREOLA LIME KILN OPERATOR Ot Z72.0 TOBACCO USE 07/01/2016 TYLER ARREOLA LIME KILN OPERATOR Ot A31.9 MYCOBACTERIAL INFECTION, UNSPECIFIED 07/01/2016 TYLER ARREOLA LIME KILN OPERATOR Ot F17.201 NICOTINE DEPENDENCE, UNSPECIFIED, IN REM 07/01/2016 TYLER ARREOLA LIME KILN OPERATOR Ot J44.9 CHRONIC OBSTRUCTIVE PULMONARY DISEASE, U 07/01/2016 TYLER ARREOLA LIME KILN OPERATOR Ot R91.1 SOLITARY PULMONARY NODULE 07/09/2016 TYLER ARREOLA LIME KILN OPERATOR Ot A31.9 MYCOBACTERIAL INFECTION, UNSPECIFIED 08/06/2016 TYLER ARREOLA LIME KILN OPERATOR Ot A31.9 MYCOBACTERIAL INFECTION, UNSPECIFIED 08/06/2016 TYLER ARREOLA LIME KILN OPERATOR Ot F17.201 NICOTINE DEPENDENCE, UNSPECIFIED, IN REM 08/06/2016 TYLER ARREOLA LIME KILN OPERATOR Ot J44.9 CHRONIC OBSTRUCTIVE PULMONARY DISEASE, U 08/06/2016 TYLER ARREOLA LIME KILN OPERATOR Ot R91.1 SOLITARY PULMONARY NODULE 09/07/2016 TYLER ARREOLA LIME KILN OPERATOR Ot A31.9 MYCOBACTERIAL INFECTION, UNSPECIFIED 09/08/2016 TYLER ARREOLA LIME KILN OPERATOR Ot A31.9 MYCOBACTERIAL INFECTION, UNSPECIFIED 09/28/2016 TYLER ARREOLA LIME KILN OPERATOR Ot A31.9 MYCOBACTERIAL INFECTION, UNSPECIFIED 09/28/2016 TYLER ARREOLA LIME KILN OPERATOR Ot F17.201 NICOTINE DEPENDENCE, UNSPECIFIED, IN REM 09/28/2016 TYLER ARREOLA LIME KILN OPERATOR Ot J44.9 CHRONIC OBSTRUCTIVE PULMONARY DISEASE, U 09/28/2016 TYLER ARREOLA LIME KILN OPERATOR Ot R91.1 SOLITARY PULMONARY NODULE 11/20/2016 TYLER ARREOLA LIME KILN OPERATOR Ot A31.9 MYCOBACTERIAL INFECTION, UNSPECIFIED 11/20/2016 TYLER ARREOLA LIME KILN OPERATOR Ot F17.201 NICOTINE DEPENDENCE, UNSPECIFIED, IN REM 11/20/2016 TYLER ARREOLA LIME KILN OPERATOR Ot J44.9 CHRONIC OBSTRUCTIVE PULMONARY DISEASE, U 11/20/2016 TYLER ARREOLA LIME KILN OPERATOR Ot A31.9 MYCOBACTERIAL INFECTION, UNSPECIFIED 11/20/2016 TYLER ARREOLA LIME KILN OPERATOR Ot F17.201 NICOTINE DEPENDENCE, UNSPECIFIED, IN REM 11/20/2016 TYLER ARREOLA LIME KILN OPERATOR Ot J44.9 CHRONIC OBSTRUCTIVE PULMONARY DISEASE, U 12/03/2016 TYLER ARREOLA LIME KILN OPERATOR Ot 031.0 PULMONARY MYCOBACTERIA 12/03/2016 TYLER ARREOLA LIME KILN OPERATOR Ot 496 CHR AIRWAY OBSTRUCT NEC 12/03/2016 TYLER ARREOLA LIME KILN OPERATOR Ot 793.11 SOLITARY PULMONARY NODULE 12/03/2016 TYLER ARREOLA LIME KILN OPERATOR Ot A31.0 PULMONARY MYCOBACTERIAL INFECTION 12/03/2016 TYLER ARREOLA LIME KILN OPERATOR Ot J44.9 CHRONIC OBSTRUCTIVE PULMONARY DISEASE, U 12/03/2016 TYLER ARREOLA LIME KILN OPERATOR Ot R91.1 SOLITARY PULMONARY NODULE 12/03/2016 TYLER ARREOLA LIME KILN OPERATOR Ot V69.8 OTHER PROBLEMS RELATED TO LIFESTYLE 12/03/2016 TYLER ARREOLA LIME KILN OPERATOR Ot Z72.0 TOBACCO USE 12/03/2016 TYLER ARREOLA LIME KILN OPERATOR Ot J44.9 CHRONIC OBSTRUCTIVE PULMONARY DISEASE, U 12/03/2016 TYLER ARREOLA LIME KILN OPERATOR Ot R91.1 SOLITARY PULMONARY NODULE 12/03/2016 TYLER ARREOLA LIME KILN OPERATOR Ot A31.9 MYCOBACTERIAL INFECTION, UNSPECIFIED 12/03/2016 TYLER ARREOLA LIME KILN OPERATOR Ot A31.9 MYCOBACTERIAL INFECTION, UNSPECIFIED 12/03/2016 TYLER ARREOLA LIME KILN OPERATOR Ot J44.9 CHRONIC OBSTRUCTIVE PULMONARY DISEASE, U 12/03/2016 TYLER ARREOLA LIME KILN OPERATOR Ot R91.1 SOLITARY PULMONARY NODULE 12/03/2016 TYLER ARREOLA LIME KILN OPERATOR Ot Z72.0 TOBACCO USE 12/03/2016 TYLER ARREOLA LIME KILN OPERATOR Ot A31.9 MYCOBACTERIAL INFECTION, UNSPECIFIED 12/03/2016 TYLER ARREOLA LIME KILN OPERATOR Ot A31.9 MYCOBACTERIAL INFECTION, UNSPECIFIED 12/03/2016 TYLER ARREOLA LIME KILN OPERATOR Ot F17.201 NICOTINE DEPENDENCE, UNSPECIFIED, IN REM 12/03/2016 TYLER ARREOLA LIME KILN OPERATOR Ot J44.9 CHRONIC OBSTRUCTIVE PULMONARY DISEASE, U 12/03/2016 TYLER ARREOLA LIME KILN OPERATOR Ot R91.1 SOLITARY PULMONARY NODULE 12/04/2016 TYLER ARREOLA LIME KILN OPERATOR Ot A31.9 MYCOBACTERIAL INFECTION, UNSPECIFIED 12/04/2016 TYLER ARREOLA LIME KILN OPERATOR Ot F17.201 NICOTINE DEPENDENCE, UNSPECIFIED, IN REM 12/04/2016 TYLER ARREOLA LIME KILN OPERATOR Ot J44.9 CHRONIC OBSTRUCTIVE PULMONARY DISEASE, U 12/17/2016 TYLER ARREOLA LIME KILN OPERATOR Ot A31.9 MYCOBACTERIAL INFECTION, UNSPECIFIED 12/17/2016 TYLER ARREOLA LIME KILN OPERATOR Ot F17.201 NICOTINE DEPENDENCE, UNSPECIFIED, IN REM 12/17/2016 TYLER ARREOLA LIME KILN OPERATOR Ot J44.9 CHRONIC OBSTRUCTIVE PULMONARY DISEASE, U 12/29/2016 TYLER ARREOLA LIME KILN OPERATOR Ot A31.9 MYCOBACTERIAL INFECTION, UNSPECIFIED 12/31/2016 TYLER ARREOLA LIME KILN OPERATOR Ot A31.9 MYCOBACTERIAL INFECTION, UNSPECIFIED 12/31/2016 TYLER ARREOLA LIME KILN OPERATOR Ot F17.201 NICOTINE DEPENDENCE, UNSPECIFIED, IN REM 12/31/2016 TYLER ARREOLA LIME KILN OPERATOR Ot J44.9 CHRONIC OBSTRUCTIVE PULMONARY DISEASE, U 12/31/2016 TYLER ARREOLA LIME KILN OPERATOR Ot R91.1 SOLITARY PULMONARY NODULE 01/06/2017 TYLER ARREOLA LIME KILN OPERATOR Ot J44.9 CHRONIC OBSTRUCTIVE PULMONARY DISEASE, U 01/06/2017 TYLER ARREOLA LIME KILN OPERATOR Ot R91.1 SOLITARY PULMONARY NODULE 01/06/2017 TYLER ARREOLA LIME KILN OPERATOR Ot Z72.0 TOBACCO USE 01/06/2017 TYLER ARREOLA LIME KILN OPERATOR Ot 031.0 PULMONARY MYCOBACTERIA 01/06/2017 TYLER ARREOLA LIME KILN OPERATOR Ot 496 CHR AIRWAY OBSTRUCT NEC 01/06/2017 TYLER ARREOLA LIME KILN OPERATOR Ot 793.11 SOLITARY PULMONARY NODULE 01/06/2017 TYLER ARREOLA LIME KILN OPERATOR Ot A31.0 PULMONARY MYCOBACTERIAL INFECTION 01/06/2017 TYLER ARREOLA LIME KILN OPERATOR Ot J44.9 CHRONIC OBSTRUCTIVE PULMONARY DISEASE, U 01/06/2017 TYLER ARREOLA LIME KILN OPERATOR Ot R91.1 SOLITARY PULMONARY NODULE 01/06/2017 TYLER ARREOLA LIME KILN OPERATOR Ot V69.8 OTHER PROBLEMS RELATED TO LIFESTYLE 01/06/2017 TYLER ARREOLA LIME KILN OPERATOR Ot Z72.0 TOBACCO USE 01/06/2017 TYLER ARREOLA LIME KILN OPERATOR Ot J44.9 CHRONIC OBSTRUCTIVE PULMONARY DISEASE, U 01/06/2017 TYLER ARREOLA LIME KILN OPERATOR Ot R91.1 SOLITARY PULMONARY NODULE 01/06/2017 TYLER ARREOLA LIME KILN OPERATOR Ot A31.9 MYCOBACTERIAL INFECTION, UNSPECIFIED 01/06/2017 TYLER ARREOLA LIME KILN OPERATOR Ot A31.9 MYCOBACTERIAL INFECTION, UNSPECIFIED 01/06/2017 TYLER ARREOLA LIME KILN OPERATOR Ot J44.9 CHRONIC OBSTRUCTIVE PULMONARY DISEASE, U 01/06/2017 ELBA, TYLER E LIME KILN OPERATOR Ot R91.1 SOLITARY PULMONARY NODULE 01/06/2017 TYLER ARREOLA LIME KILN OPERATOR Ot Z72.0 TOBACCO USE 01/06/2017 TYLER ARREOLA LIME KILN OPERATOR Ot A31.9 MYCOBACTERIAL INFECTION, UNSPECIFIED 01/06/2017 TYLER ARREOLA LIME KILN OPERATOR Ot A31.9 MYCOBACTERIAL INFECTION, UNSPECIFIED 01/06/2017 TYLER ARREOLA LIME KILN OPERATOR Ot F17.201 NICOTINE DEPENDENCE, UNSPECIFIED, IN REM 01/06/2017 TYLER ARREOLA E LIME KILN OPERATOR Ot J44.9 CHRONIC OBSTRUCTIVE PULMONARY DISEASE, U 01/06/2017 TYLER ARREOLA LIME KILN OPERATOR Ot R91.1 SOLITARY PULMONARY NODULE 01/06/2017 TYLER ARREOLA LIME KILN OPERATOR Ot A31.9 MYCOBACTERIAL INFECTION, UNSPECIFIED 01/06/2017 TYLER ARREOLA LIME KILN OPERATOR Ot F17.201 NICOTINE DEPENDENCE, UNSPECIFIED, IN REM 01/06/2017 TYLER ARREOLA LIME KILN OPERATOR Ot J44.9 CHRONIC OBSTRUCTIVE PULMONARY DISEASE, U 01/06/2017 TYLER ARREOLA LIME KILN OPERATOR Ot A31.9 MYCOBACTERIAL INFECTION, UNSPECIFIED 01/06/2017 TYLER ARREOLA LIME KILN OPERATOR Ot F17.201 NICOTINE DEPENDENCE, UNSPECIFIED, IN REM 01/06/2017 TYLER ARREOLA LIME KILN OPERATOR Ot J44.9 CHRONIC OBSTRUCTIVE PULMONARY DISEASE, U 01/06/2017 TYLER ARREOLA LIME KILN OPERATOR Ot A31.9 MYCOBACTERIAL INFECTION, UNSPECIFIED 01/06/2017 TYLER ARREOLA LIME KILN OPERATOR Ot A31.9 MYCOBACTERIAL INFECTION, UNSPECIFIED 01/06/2017 TYLER ARREOLA LIME KILN OPERATOR Ot F17.201 NICOTINE DEPENDENCE, UNSPECIFIED, IN REM 01/06/2017 TYLER ARREOLA LIME KILN OPERATOR Ot J44.9 CHRONIC OBSTRUCTIVE PULMONARY DISEASE, U 01/06/2017 TYLER ARREOLA LIME KILN OPERATOR Ot R91.1 SOLITARY PULMONARY NODULE 01/07/2017 TYLER ARREOLA LIME KILN OPERATOR Ot J43.9 EMPHYSEMA, UNSPECIFIED 01/09/2017 TYLER ARREOLA LIME KILN OPERATOR Ot A31.9 MYCOBACTERIAL INFECTION, UNSPECIFIED 01/09/2017 TYLER ARREOLA E LIME KILN OPERATOR Ot A31.9 MYCOBACTERIAL INFECTION, UNSPECIFIED 01/09/2017 TYLER ARREOLA E LIME KILN OPERATOR Ot F17.201 NICOTINE DEPENDENCE, UNSPECIFIED, IN REM 01/09/2017 TYLER ARREOLA LIME KILN OPERATOR Ot J44.9 CHRONIC OBSTRUCTIVE PULMONARY DISEASE, U 01/09/2017 TYLER ARREOLA LIME KILN OPERATOR Ot R91.1 SOLITARY PULMONARY NODULE 01/21/2017 TYLER ARREOLA LIME KILN OPERATOR Ot J43.9 EMPHYSEMA, UNSPECIFIED 02/13/2017 TYLER ARREOLA LIME KILN OPERATOR Ot J44.9 CHRONIC OBSTRUCTIVE PULMONARY DISEASE, U 02/13/2017 TYLER ARREOLA LIME KILN OPERATOR Ot R91.1 SOLITARY PULMONARY NODULE 02/13/2017 TYLER ARREOLA LIME KILN OPERATOR Ot Z72.0 TOBACCO USE 02/13/2017 TYLER ARREOLA LIME KILN OPERATOR Ot 031.0 PULMONARY MYCOBACTERIA 02/13/2017 TYLER ARREOLA LIME KILN OPERATOR Ot 496 CHR AIRWAY OBSTRUCT NEC 02/13/2017 TYLER ARREOLA LIME KILN OPERATOR Ot 793.11 SOLITARY PULMONARY NODULE 02/13/2017 TYLER ARREOLA LIME KILN OPERATOR Ot A31.0 PULMONARY MYCOBACTERIAL INFECTION 02/13/2017 TYLER ARREOLA LIME KILN OPERATOR Ot J44.9 CHRONIC OBSTRUCTIVE PULMONARY DISEASE, U 02/13/2017 TYLER ARREOLA LIME KILN OPERATOR Ot R91.1 SOLITARY PULMONARY NODULE 02/13/2017 TYLER ARREOLA LIME KILN OPERATOR Ot V69.8 OTHER PROBLEMS RELATED TO LIFESTYLE 02/13/2017 TYLER ARREOLA LIME KILN OPERATOR Ot Z72.0 TOBACCO USE 02/13/2017 TYLER ARREOLA LIME KILN OPERATOR Ot J44.9 CHRONIC OBSTRUCTIVE PULMONARY DISEASE, U 02/13/2017 TYLER ARREOLA LIME KILN OPERATOR Ot R91.1 SOLITARY PULMONARY NODULE 02/13/2017 TYLER ARREOLA LIME KILN OPERATOR Ot A31.9 MYCOBACTERIAL INFECTION, UNSPECIFIED 02/13/2017 TYLER ARREOLA LIME KILN OPERATOR Ot A31.9 MYCOBACTERIAL INFECTION, UNSPECIFIED 02/13/2017 TYLER ARREOLA LIME KILN OPERATOR Ot J44.9 CHRONIC OBSTRUCTIVE PULMONARY DISEASE, U 02/13/2017 TYLER ARREOLA LIME KILN OPERATOR Ot R91.1 SOLITARY PULMONARY NODULE 02/13/2017 TYLER ARREOLA LIME KILN OPERATOR Ot Z72.0 TOBACCO USE 02/13/2017 TYLER ARREOLA LIME KILN OPERATOR Ot A31.9 MYCOBACTERIAL INFECTION, UNSPECIFIED 02/13/2017 TYLER ARREOLA LIME KILN OPERATOR Ot A31.9 MYCOBACTERIAL INFECTION, UNSPECIFIED 02/13/2017 TYLER ARREOLA LIME KILN OPERATOR Ot F17.201 NICOTINE DEPENDENCE, UNSPECIFIED, IN REM 02/13/2017 TYLER ARREOLA LIME KILN OPERATOR Ot J44.9 CHRONIC OBSTRUCTIVE PULMONARY DISEASE, U 02/13/2017 JEAN ARREOLAINE E LIME KILN OPERATOR Ot R91.1 SOLITARY PULMONARY NODULE 02/13/2017 TYLER ARREOLA LIME KILN OPERATOR Ot A31.9 MYCOBACTERIAL INFECTION, UNSPECIFIED 02/13/2017 JEAN ARREOLAINE E LIME KILN OPERATOR Ot F17.201 NICOTINE DEPENDENCE, UNSPECIFIED, IN REM 02/13/2017 TYLER ARREOLA LIME KILN OPERATOR Ot J44.9 CHRONIC OBSTRUCTIVE PULMONARY DISEASE, U 02/13/2017 TYLER ARREOLA LIME KILN OPERATOR Ot A31.9 MYCOBACTERIAL INFECTION, UNSPECIFIED 02/13/2017 TYLER ARREOLA LIME KILN OPERATOR Ot F17.201 NICOTINE DEPENDENCE, UNSPECIFIED, IN REM 02/13/2017 TYLER ARREOLA LIME KILN OPERATOR Ot J44.9 CHRONIC OBSTRUCTIVE PULMONARY DISEASE, U 02/13/2017 TYLER ARREOLA LIME KILN OPERATOR Ot A31.9 MYCOBACTERIAL INFECTION, UNSPECIFIED 02/13/2017 TYLER ARREOLA LIME KILN OPERATOR Ot A31.9 MYCOBACTERIAL INFECTION, UNSPECIFIED 02/13/2017 TYLER ARREOLA LIME KILN OPERATOR Ot F17.201 NICOTINE DEPENDENCE, UNSPECIFIED, IN REM 02/13/2017 TYLER ARREOLA LIME KILN OPERATOR Ot J44.9 CHRONIC OBSTRUCTIVE PULMONARY DISEASE, U 02/13/2017 TYLER ARREOLA LIME KILN OPERATOR Ot R91.1 SOLITARY PULMONARY NODULE 02/13/2017 TYLER ARREOLA LIME KILN OPERATOR Ot J43.9 EMPHYSEMA, UNSPECIFIED 02/25/2017 TYLER ARREOLA LIME KILN OPERATOR Ot A31.9 MYCOBACTERIAL INFECTION, UNSPECIFIED 03/22/2017 TYLER ARREOLA E LIME KILN OPERATOR Ot A31.9 MYCOBACTERIAL INFECTION, UNSPECIFIED 03/22/2017 TYLER ARREOLA LIME KILN OPERATOR Ot F17.201 NICOTINE DEPENDENCE, UNSPECIFIED, IN REM 03/22/2017 TYLER ARREOLA LIME KILN OPERATOR Ot J43.9 EMPHYSEMA, UNSPECIFIED 03/22/2017 ELBAJEAN CAMILOINE Trish LIME KILN OPERATOR Ot R91.8 OTHER NONSPECIFIC ABNORMAL FINDING OF DAMION 03/25/2017 TYLER ARREOLA LIME KILN OPERATOR Ot A31.9 MYCOBACTERIAL INFECTION, UNSPECIFIED 03/25/2017 TYLER ARREOLA LIME KILN OPERATOR Ot F17.201 NICOTINE DEPENDENCE, UNSPECIFIED, IN REM 03/25/2017 TYLER ARREOLA LIME KILN OPERATOR Ot J43.9 EMPHYSEMA, UNSPECIFIED 03/25/2017 TYLER ARREOLA LIME KILN OPERATOR Ot R91.8 OTHER NONSPECIFIC ABNORMAL FINDING OF [place] 03/26/2017 TYLER ARREOLA LIME KILN OPERATOR Ot A31.9 MYCOBACTERIAL INFECTION, UNSPECIFIED 04/24/2017 MEHRDAD GALLARDO LIME KILN OPERATOR Ot M48.54XA COLLAPSED VERTEBRA, NEC, THORACIC REGION 04/24/2017 MEHRDAD GALLARDO LIME KILN OPERATOR Ot M85.89 OTH DISRD OF BONE DENSITY AND STRUCTURE, 04/28/2017 MEHRDAD GALLARDO LIME KILN OPERATOR Ot J43.9 EMPHYSEMA, UNSPECIFIED 04/28/2017 MEHRDAD GALLARDO LIME KILN OPERATOR Ot K57.32 DVTRCLI OF 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 OR ABS 04/28/2017 MEHRDAD GALLARDO LIME KILN OPERATOR Ot J43.9 EMPHYSEMA, UNSPECIFIED 04/28/2017 MEHRDAD GALLARDO LIME KILN OPERATOR Ot K57.32 DVTRCLI OF 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 OR ABS 04/28/2017 MEHRDAD GALLARDO LIME KILN OPERATOR Ot J43.9 EMPHYSEMA, UNSPECIFIED 04/28/2017 MEHRADD GALLARDO LIME KILN OPERATOR Ot K57.32 DVTRCLI OF 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 OR ABS 04/28/2017 MEHRDAD GALLARDO LIME KILN OPERATOR Ot J43.9 EMPHYSEMA, UNSPECIFIED 04/28/2017 MEHRDAD GALLARDO LIME KILN OPERATOR Ot K57.32 DVTRCLI OF 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 OR ABS 04/28/2017 MEHRDAD GALLARDO LIME KILN OPERATOR Ot J43.9 EMPHYSEMA, UNSPECIFIED 04/28/2017 MEHRDAD GALLARDO LIME KILN OPERATOR Ot K57.32 DVTRCLI OF 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 OR ABS 05/22/2017 MEHRDAD GALLARDO LIME KILN OPERATOR Ot J43.9 EMPHYSEMA, UNSPECIFIED 05/22/2017 MEHRDAD GALLARDO LIME KILN OPERATOR Ot K57.32 DVTRCLI OF 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 OR ABS 05/27/2017 MEHRDAD GALLARDO LIME KILN OPERATOR Ot J43.9 EMPHYSEMA, UNSPECIFIED 05/27/2017 MEHRDAD GALLARDO LIME KILN OPERATOR Ot K57.32 DVTRCLI OF 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 OR ABS 07/28/2017 TYLER ARREOLA LIME KILN OPERATOR Ot A31.9 MYCOBACTERIAL INFECTION, UNSPECIFIED 10/28/2017 TYLER ARREOLA LIME KILN OPERATOR Ot A31.9 MYCOBACTERIAL INFECTION, UNSPECIFIED 04/05/2018 MEHRDAD GALLARDO LIME KILN OPERATOR Ot M48.54XA COLLAPSED VERTEBRA, NEC, THORACIC REGION 04/05/2018 MEHRDAD GALLARDO LIME KILN OPERATOR Ot M85.89 OTH DISRD OF BONE DENSITY AND STRUCTURE, 04/05/2018 MEHRDAD GALLARDO LIME KILN OPERATOR Ot J43.9 EMPHYSEMA, UNSPECIFIED 04/05/2018 MEHRDAD GALLARDO LIME KILN OPERATOR Ot K57.32 DVTRCLI OF 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 OR ABS 04/05/2018 TYLER ARREOLA LIME KILN OPERATOR Ot A31.9 MYCOBACTERIAL INFECTION, UNSPECIFIED 04/05/2018 TYLER ARREOLA LIME KILN OPERATOR Ot A31.9 MYCOBACTERIAL INFECTION, UNSPECIFIED 04/07/2018 TYLER ARREOLA LIME KILN OPERATOR Ot A31.9 MYCOBACTERIAL INFECTION, UNSPECIFIED 04/27/2018 TYLER ARREOLA LIME KILN OPERATOR Ot A31.9 MYCOBACTERIAL INFECTION, UNSPECIFIED 06/07/2018 TYLER ARREOLA LIME KILN OPERATOR Ot J44.9 CHRONIC OBSTRUCTIVE PULMONARY DISEASE, U 06/09/2018 TYLER ARREOLA LIME KILN OPERATOR Ot I25.10 ATHSCL HEART DISEASE OF [place] CORONARY 06/09/2018 TYLER ARREOLA APRN Ot J30.9 ALLERGIC RHINITIS, UNSPECIFIED 06/09/2018 TYLER ARREOLA LIME KILN OPERATOR Ot J44.9 CHRONIC OBSTRUCTIVE PULMONARY DISEASE, U 06/09/2018 TYLER ARREOLA LIME KILN OPERATOR Ot J98.4 OTHER DISORDERS OF LUNG 06/09/2018 TYLER ARREOLA APRN Ot Z12.2 ENCNTR SCREEN FOR MALIGNANT NEOPLASM OF 06/09/2018 TYLER ARREOLA APRN Ot Z86.19 PERSONAL HISTORY OF OTHER INFECTIOUS AND 06/09/2018 TYLER ARREOLA LIME KILN OPERATOR Ot Z87.891 PERSONAL HISTORY OF NICOTINE DEPENDENCE Procedures There is no data. Results Test Result Range Sputum Gram stain - 06/20/16 12:00 GRAM STAIN SPUTUM OBSERVED NRG Bacterial sputum culture - 06/20/16 12:00 FREE TEXT EXTERNAL SENSITIVITY REPORTED 06/24/16 8:35 NRG QUANTITY OF GROWTH Scant Growth NRG Bacterial sputum culture [id number] [facility] Bacterial susceptibility panel - 06/20/16 12:00 Gentamicin susceptibility test by minimum inhibitory concentration < = NRG Trimethoprim/sulfamethoxazole susceptibility test by minimum inhibitoryconcentration <= NRG Ampicillin susceptibility test by minimum inhibitory concentration > = NRG Tobramycin susceptibility test by minimum inhibitory concentration < = NRG Cefazolin susceptibility test by minimum inhibitory concentration S NRG Ceftriaxone susceptibility test by minimum inhibitory concentration S NRG Ampicillin/sulbactam susceptibility test by minimum inhibitory concentration 16 NRG Ciprofloxacin susceptibility test by minimum inhibitory concentration >= NRG Meropenem susceptibility test by minimum inhibitory concentration < = NRG Aztreonam susceptibility test by minimum inhibitory concentration S NRG Extended spectrum beta lactamase (ESBL) producing bacteria susceptibility test by minimum inhibitory concentration - [facility] Sputum Gram stain - 12/26/16 11:45 GRAM STAIN SPUTUM NO BACTERIA NRG Bacterial sputum culture - 12/26/16 11:45 FREE TEXT EXTERNAL SENSITIVITY REPORTED 12/30/16 7:25 NRG QUANTITY OF GROWTH Scant Growth NRG Bacterial sputum culture [id number] [facility] Bacterial susceptibility panel - 12/26/16 11:45 Gentamicin susceptibility test by minimum inhibitory concentration < = NRG Trimethoprim/sulfamethoxazole susceptibility test by minimum inhibitoryconcentration <= NRG Ampicillin susceptibility test by minimum inhibitory concentration > = NRG Tobramycin susceptibility test by minimum inhibitory concentration < = NRG Cefazolin susceptibility test by minimum inhibitory concentration < = NRG Ceftriaxone susceptibility test by minimum inhibitory concentration <= NRG Ampicillin/sulbactam susceptibility test by minimum inhibitory concentration 4 NRG Piperacillin/tazobactam susceptibility test by minimum inhibitory concentration 8 NRG Ciprofloxacin susceptibility test by minimum inhibitory concentration >= NRG Meropenem susceptibility test by minimum inhibitory concentration < = NRG Aztreonam susceptibility test by minimum inhibitory concentration < = NRG Extended spectrum beta lactamase (ESBL) producing bacteria susceptibility test by minimum inhibitory concentration - [facility] Bacterial susceptibility panel - 12/26/16 11:45 Gentamicin susceptibility test by minimum inhibitory concentration > = NRG Trimethoprim/sulfamethoxazole susceptibility test by minimum inhibitoryconcentration <= NRG Ampicillin susceptibility test by minimum inhibitory concentration 16 NRG Tobramycin susceptibility test by minimum inhibitory concentration > = NRG Cefazolin susceptibility test by minimum inhibitory concentration > = NRG Ceftriaxone susceptibility test by minimum inhibitory concentration >= NRG Ampicillin/sulbactam susceptibility test by minimum inhibitory concentration 8 NRG Piperacillin/tazobactam susceptibility test by minimum inhibitory concentration <= NRG Ciprofloxacin susceptibility test by minimum inhibitory concentration 2 NRG Meropenem susceptibility test by minimum inhibitory concentration < = NRG Aztreonam susceptibility test by minimum inhibitory concentration > = NRG Amikacin susceptibility test by minimum inhibitory concentration R NRG Mycobacterium species detection by organism specific culture - 12/26/16 11:45 DATE/TIME MICROSCOPIC 12/31/16 14:00 NRG MICROSCOPIC NO ACID-FAST BACILLI FOUND NRG AFB CULTURE NO MYCOBACTERIA RECOVERED AFTER 6 WEEKS NRG DATE FINAL AFB CULTURE 02/10/17 NRG Comprehensive metabolic panel - 02/13/17 09:11 Serum or plasma sodium measurement (moles/volume) 128 mmol/L 135-145 Serum or plasma potassium measurement (moles/volume) 4.5 mmol/L 3.6-5.0 Serum or plasma chloride measurement (moles/volume) 90 mmol/L 98-107 Carbon dioxide 26 mmol/L 21-32 Serum or plasma anion gap determination (moles/volume) 12 mmol/L 5-14 Serum or plasma urea nitrogen measurement (mass/volume) 8 mg/dL 7-18 Serum or plasma creatinine measurement (mass/volume) 0.75 mg/dL 0.60-1.30 Serum or plasma urea nitrogen/creatinine mass ratio 11 NRG Serum or plasma creatinine measurement with calculation of estimated glomerular filtration rate > NRG Serum or plasma glucose measurement (mass/volume) 72 mg/dL 70-105 Serum or plasma calcium measurement (mass/volume) 9.5 mg/dL 8.5-10.1 Serum or plasma total bilirubin measurement (mass/volume) 0.6 mg/dL 0.1-1.0 Serum or plasma alkaline phosphatase measurement (enzymatic activity/volume) 69 U/L 40-136 Serum or plasma aspartate aminotransferase measurement (enzymatic activity/ volume) 32 U/L 5-34 Serum or plasma alanine aminotransferase measurement (enzymatic activity/volume ) 29 U/L 0-55 Serum or plasma protein measurement (mass/volume) 7.0 g/dL 6.4-8.2 Serum or plasma albumin measurement (mass/volume) 4.7 g/dL 3.2-4.5 Complete blood count (CBC) with automated white blood cell (WBC) differential - 02/13/17 09:11 Blood leukocytes automated count (number/volume) 4.6 10*3/uL 4.3-11.0 Blood erythrocytes automated count (number/volume) 5.41 10*6/uL 4.35-5.85 Venous blood hemoglobin measurement (mass/volume) 15.9 g/dL 13.3-17.7 Blood hematocrit (volume fraction) 46 % 40-54 Automated erythrocyte mean corpuscular volume 85 [foz_us] 80-99 Automated erythrocyte mean corpuscular hemoglobin (mass per erythrocyte) 29 pg 25-34 Automated erythrocyte mean corpuscular hemoglobin concentration measurement ( mass/volume) 35 g/dL 32-36 Automated erythrocyte distribution width ratio 14.4 % 10.0-14.5 Automated blood platelet count (count/volume) 201 10*3/uL 130-400 Automated blood platelet mean volume measurement 8.2 [foz_us] 7.4-10.4 Automated blood neutrophils/100 leukocytes 57 % 42-75 Automated blood lymphocytes/100 leukocytes 24 % 12-44 Blood monocytes/100 leukocytes 18 % 0-12 Automated blood eosinophils/100 leukocytes 1 % 0-10 Automated blood basophils/100 leukocytes 0 % 0-10 Blood neutrophils automated count (number/volume) 2.7 10*3 1.8-7.8 Blood lymphocytes automated count (number/volume) 1.1 10*3 1.0-4.0 Blood monocytes automated count (number/volume) 0.8 10*3 0.0-1.0 Automated eosinophil count 0.0 10*3/uL 0.0-0.3 Automated blood basophil count (count/volume) 0.0 10*3/uL 0.0-0.1 Blood manual differential performed detection - 02/13/17 09:11 Blood monocytes/100 leukocytes 19 % NRG Manual blood segmented neutrophils/100 leukocytes 55 % NRG Blood band neutrophils/100 leukocytes 0 % NRG Manual blood lymphocytes/100 leukocytes 24 % NRG Manual eosinophils/100 leukocytes in nose 2 % NRG Manual blood basophils/100 leukocytes 0 % NRG Blood erythrocyte morphology finding identification [facility] Comprehensive metabolic panel - 07/06/17 10:27 Serum or plasma sodium measurement (moles/volume) 134 mmol/L 135-145 Serum or plasma potassium measurement (moles/volume) 3.5 mmol/L 3.6-5.0 Serum or plasma chloride measurement (moles/volume) 95 mmol/L 98-107 Carbon dioxide 27 mmol/L 21-32 Serum or plasma anion gap determination (moles/volume) 12 mmol/L 5-14 Serum or plasma urea nitrogen measurement (mass/volume) 11 mg/dL 7-18 Serum or plasma creatinine measurement (mass/volume) 0.76 mg/dL 0.60-1.30 Serum or plasma urea nitrogen/creatinine mass ratio 14 NRG Serum or plasma creatinine measurement with calculation of estimated glomerular filtration rate > NRG Serum or plasma glucose measurement (mass/volume) 121 mg/dL 70-105 Serum or plasma calcium measurement (mass/volume) 9.4 mg/dL 8.5-10.1 Serum or plasma total bilirubin measurement (mass/volume) 0.5 mg/dL 0.1-1.0 Serum or plasma alkaline phosphatase measurement (enzymatic activity/volume) 81 U/L 40-136 Serum or plasma aspartate aminotransferase measurement (enzymatic activity/ volume) 20 U/L 5-34 Serum or plasma alanine aminotransferase measurement (enzymatic activity/volume ) 17 U/L 0-55 Serum or plasma protein measurement (mass/volume) 7.7 g/dL 6.4-8.2 Serum or plasma albumin measurement (mass/volume) 4.3 g/dL 3.2-4.5 Comprehensive metabolic panel - 04/05/18 09:15 Serum or plasma sodium measurement (moles/volume) 143 mmol/L 135-145 Serum or plasma potassium measurement (moles/volume) 3.9 mmol/L 3.6-5.0 Serum or plasma chloride measurement (moles/volume) 106 mmol/L 98-107 Carbon dioxide 30 mmol/L -32 Serum or plasma anion gap determination (moles/volume) 7 mmol/L 5-14 Serum or plasma urea nitrogen measurement (mass/volume) 19 mg/dL 7-18 Serum or plasma creatinine measurement (mass/volume) 0.91 mg/dL 0.60-1.30 Serum or plasma urea nitrogen/creatinine mass ratio 21 NRG Serum or plasma creatinine measurement with calculation of estimated glomerular filtration rate > NRG Serum or plasma glucose measurement (mass/volume) 120 mg/dL 70-105 Serum or plasma calcium measurement (mass/volume) 9.4 mg/dL 8.5-10.1 Serum or plasma total bilirubin measurement (mass/volume) 0.3 mg/dL 0.1-1.0 Serum or plasma alkaline phosphatase measurement (enzymatic activity/volume) 55 U/L 40-136 Serum or plasma aspartate aminotransferase measurement (enzymatic activity/ volume) 26 U/L 5-34 Serum or plasma alanine aminotransferase measurement (enzymatic activity/volume ) 37 U/L 0-55 Serum or plasma protein measurement (mass/volume) 6.8 g/dL 6.4-8.2 Serum or plasma albumin measurement (mass/volume) 4.2 g/dL 3.2-4.5 Encounters ACCT No. Visit Date/Time Discharge Status Pt. Type Provider Facility Loc./Unit Complaint [id number] 06/08/2018 07:32:00 06/08/2018 23:59:59 CLS Outpatient TYLER ARREOLA APRN [facility] RAD J44.9 COPD [id number] 04/05/2018 08:39:00 04/05/2018 23:59:59 CLS Outpatient TYLER ARREOLA L[employer] OPERATOR [facility] LAB A31.9 [id number] 10/07/2017 10:06:00 10/07/2017 23:59:59 CLS Outpatient TYLER ARREOLA APRN [facility] LAB A31.9 [id number] 07/06/2017 10:14:00 07/06/2017 23:59:59 CLS Outpatient TYLER ARREOLA L[employer] OPERATOR [facility] LAB A31.9 [id number] 04/23/2017 15:16:00 04/23/2017 23:59:59 CLS Outpatient MEHRDAD GALLARDO APRN [facility] RAD NAUSEA R11.0, LOWER ABD PAIN R10.30 [id number] 04/02/2017 08:41:00 04/02/2017 23:59:59 CLS Outpatient MEHRDAD GALLARDO L[employer] OPERATOR [facility] RAD M48.54XA COMPRESSION FX OF THROACIC SPINE, Z12.820 [id number] 03/27/2017 00:13:00 03/27/2017 23:59:59 CLS Preadmit ELBA, TYLER E L[employer] OPERATOR [facility] LAB MYCOBACTERIAL INFECTION [id number] 12/26/2016 14:01:00 03/26/2017 00:01:00 DIS Outpatient ELBA, TYLER E [employer] OPERATOR [facility] LAB MYCOBACTERIAL INFECTION [id number] 03/16/2017 12:43:00 03/16/2017 23:59:59 CLS Outpatient ELBA, TYLER E L[employer] OPERATOR [facility] RAD J44.9,R91.1,A31.9, F17.201 [id number] 02/13/2017 08:59:00 02/13/2017 23:59:59 CLS Outpatient ELBA, TYLER E L[employer] OPERATOR [facility] LAB A31.9 [id number] 01/06/2017 10:17:00 01/06/2017 23:59:59 CLS Outpatient ELBA, TYLER E L[employer] OPERATOR [facility] RAD COPD,COUGH SYNCOPE, LUNG NODULE SEEN ON IMAGING MARIA ESTHER [id number] 12/30/2016 08:19:00 12/30/2016 23:59:59 CLS Outpatient ELBA, TYLER E [employer] OPERATOR [facility] LAB COPD,LUNG NODULE [id number] 12/03/2016 07:41:00 12/03/2016 23:59:59 CLS Outpatient ELBA, TYLER E L[employer] OPERATOR [facility] RT COPD,MYCOBACTERIAL INFECTION,TOBACCO DEPENDENCE [id number] 11/19/2016 16:12:00 11/19/2016 23:59:59 CLS Outpatient ELBA, TYLER E L[employer] OPERATOR [facility] RT COPD [id number] 09/29/2016 09:45:00 09/29/2016 23:59:59 CLS Preadmit ELBA, TYLER E LIME [employer] OPERATOR [facility] RAD MYCOBACTERIAL INFECTION,COPD [id number] 09/12/2016 09:26:00 09/28/2016 00:01:00 DIS Outpatient ELBA, TYLER E L[employer] OPERATOR [facility] RAD MYCOBACTERIAL INFECTION,COPD [id number] 09/08/2016 00:09:00 09/08/2016 23:59:59 CLS Preadmit ELBA, TYLER E L[employer] OPERATOR [facility] LAB MYCOBACTERIAL INFECTION [id number] 06/20/2016 13:06:00 09/07/2016 00:01:00 DIS Outpatient TYLER ARREOLA L[employer] OPERATOR [facility] LAB MYCOBACTERIAL INFECTION [id number] 06/09/2016 15:19:00 06/09/2016 23:59:59 CLS Preadmit JEAN ARREOLAINE E L[employer] OPERATOR [facility] LAB MYCOBATERIAL INFECTION [id number] 04/11/2016 10:52:00 06/09/2016 15:19:00 DIS Outpatient TYLER ARREOLA E [employer] OPERATOR [facility] LAB MYCOBATERIAL INFECTION [id number] 03/26/2016 00:08:00 03/26/2016 23:59:59 CLS Preadmit JEAN ARREOLAINE E L[employer] OPERATOR [facility] LAB MYCOBACTERIAL INFECTION [id number] 12/26/2015 10:40:00 03/25/2016 00:01:00 DIS Outpatient TYLER ARREOLA L[employer] OPERATOR [facility] LAB MYCOBACTERIAL INFECTION [id number] 11/19/2015 15:00:00 11/19/2015 23:59:59 CLS Preadmit TYLER ARREOLA L[employer] OPERATOR [facility] PULM COPD LUNG NODULES [id number] 08/20/2015 15:23:00 11/18/2015 00:01:00 DIS Outpatient TYLER ARREOLA L[employer] OPERATOR [facility] PULM COPD LUNG NODULES [id number] 11/14/2015 00:08:00 11/14/2015 23:59:59 CLS Preadmit JEAN ARREOLAINE E LIME KIL[employer] OPERATOR [facility] LAB MAC,COPD,LUNG NODULE, TOBACCO USER [id number] 08/20/2015 16:45:00 11/13/2015 00:01:00 DIS Outpatient TYLER ARREOLA L[employer] OPERATOR [facility] LAB MAC,COPD,LUNG NODULE,TOBACCO USER [id number] 08/06/2015 13:47:00 08/06/2015 23:59:59 CLS Outpatient TYLER ARREOLA E [employer] OPERATOR [facility] RAD COPD LUNG NODULE [id number] 06/21/2018 10:47:00 PEN Preadmit TOPHER VELASCO DO [facility] RAD LUNG NODULE [id number] 06/16/2017 10:00:00 06/16/2017 23:59:59 CLS Outpatient MEHRDAD GALLARDO APRN
[2018-06-24] MEDS ORDERED: NS IV 500 ML 500 ML IV PRN (07:19)
[2018-06-24 07:25] VITALS: BP 184/109
[2018-06-24] MEDS ORDERED: fentaNYL INJECTION 100 MCG/2 ML AMP IVP ONE (07:30)
[2018-06-24] MEDS ORDERED: MIDAZOLAM 2 MG/2 ML (VERSED) VIAL IVP ONE (07:30)
--- NOTE | 2018-06-24 07:30 | Progress Note-Pre Operative ---
Pre-Operative Progress Note H&P Reviewed The H&P was reviewed, patient examined and no changes noted. Time Seen by Provider: 07:30 Date H&P Reviewed: Jun 24, 2018 Time H&P Reviewed: 07:30 Pre-Operative Diagnosis: lung mass TOPHER VELASCO DO Jun 24, 2018 07:30
--- NOTE | 2018-06-24 07:31 | Pre-Op Note & Conscious Sedat ---
Pre-Operative Progress Note H&P Reviewed The H&P was reviewed, patient examined and no changes noted. Date H&P Reviewed: Jun 24, 2018 Time H&P Reviewed: 07:30 Conscious Sedation Pre-Proced Time 07:30 ASA Score 3 For ASA 3 and 4: Consider anesthesia and medical clearance. Also, for patients with a history of failed moderate sedation consider anesthesia. Airway Lungs Heart ASA score ASA 1: a normal healthy patient ASA 2: a patient with a mild systemic disease (mid diabetes, controlled hypertension, obesity ASA 3: a patient with a severe systemic disease that limits activity (angina , COPD, prior Myocardial infarction) ASA 4: a patient with an incapacitating disease that is a constant threat to life (CHF, renal failure) ASA 5: a moribund patient not expected to survive 24 hrs. (ruptured aneurysm) ASA 6: a declared brain patient whose organs are being harvested. For emergent operations, add the letter E after the classification Mallampati Classification Grade 3 Sedation Plan Analgesia, Amnesia, Plan communicated to team members, Discussed options with patient/fam, Discussed risks with patient/fam The patient is an appropriate candidate to undergo the planned procedure, sedation, and anesthesia. The patient immediately re-assessed prior to indication. TOPHER VELASCO DO Jun 24, 2018 07:31
--- NOTE | 2018-06-24 07:33 | Pulmonary Procedures ---
Pulmonary Procedures Date of Procedure Date of Service: Jun 24, 2018 Bronch Bronchoscopy with fluoroscopy, percepta brush of main stem josefina, bronchoalveolar lavage (BAL), transbronchial washes and, transbronchial brushes of LLL. Preop DX ILD , lung mass Postop DX: same Complications: none After informed consent obtained and formal time out pt was sedated using Fentanyl and Versed. Bronchoscope was advanced through the nare and vocal cords. 1% lidocaine was used to anesthetize vocal cords, epiglottis, josefina, and left/right main stem bronchus. An anatomical tour was undertaken down to the segmental bronchi bilaterally. No endobronchial lesions noted. percepta brush done of main stem josefina, From the LLL with fluoroscopy, bronchoalveolar lavage (BAL), transbronchial washes and, transbronchial brushes of LLL. were obtained. Pt tolerated procedure well. No complications noted. Stat CXR is pending. TOPHER VELASCO DO Jun 24, 2018 07:33
[2018-06-24] MEDS ORDERED: fentaNYL INJECTION 100 MCG/2 ML AMP ONE ×2 (07:45→08:05)
[2018-06-24] MEDS ORDERED: MIDAZOLAM 2 MG/2 ML (VERSED) VIAL ONE ×3 (07:45→08:06)
[2018-06-24 08:55] VITALS: BP 182/105
[2018-06-24 09:30] VITALS: BP 149/90
--- NOTE | 2018-06-24 10:14 | Diagnostic Imaging Report ---
INDICATION: POST BRONCHOSCOPY. TECHNIQUE: Single frontal view of the chest. COMPARISON: CT from 06/08/2018 FINDINGS: Lung volumes are large. Scarring and bullous changes are noted in the lungs, particularly the right lung apex and the left lung base. Linear opacity across the right midlung likely represents scarring/atelectasis. No pleural effusion or pneumothorax is seen. The cardiac silhouette is normal in size. There is aortic atherosclerosis. IMPRESSION: 1. No pneumothorax post-bronchoscopy. Chronic findings as described above. Dictated by: Dictated on workstation # [id number]
[2018-06-24 10:26] VITALS: BP 182/108
[2018-06-24 11:20] VITALS: BP 182/108
== END 2018-06-24 11:20 | disposition home or self-care (01) ==
LOC: ENDO 06:20
PROVIDERS: ATTEND Internal Medicine Critical Care Medicine
DX: J84.9 Interstitial pulmonary disease, unspecified (principal); R91.8 Other nonspecific abnormal finding of lung field; J44.9 Chronic obstructive pulmonary disease, unspecified; J30.9 Allergic rhinitis, unspecified; Z87.891 Personal history of nicotine dependence; Z79.82 Long term (current) use of aspirin; Z79.51 Long term (current) use of inhaled steroids; Z99.81 Dependence on supplemental oxygen; Z86.19 Personal history of other infectious and parasitic diseases
CPT/HCPCS: 71045; 87070; 87101; 87116; 87205; 94640

== ENCOUNTER → 2018-06-29 | Outpatient (CLI) | payer MEDICARE ==
--- NOTE | 2018-06-29 13:40 | Diagnostic Imaging Report ---
INDICATION: Lung nodule. TECHNIQUE: Serum blood glucose level at the time of injection is 104 mg/dL. Patient was administered 13.3 mCi F-18 FDG intravenously, administered in the right antecubital location and PET imaging from the top of the skull through the mid thighs was performed. Noncontrast CT was also performed for attenuation correction and anatomic correlation. COMPARISON: Correlation is made with the screening CT chest study from 06/08/2018. FINDINGS: There is symmetric activity throughout the brain. No abnormal hypermetabolism in the neck is identified apart from a focus of moderate uptake involving the posterior larynx at the level of the vocal cords in the midline. Direct visualization would be useful. No other suspicious foci in the neck are identified. Imaging through the chest is unremarkable. No hypermetabolic mediastinal or hilar lymphadenopathy is seen. The area of irregular density in the posterolateral left lower lobe shows very low-level activity. No FDG avidity in the pulmonary parenchyma is identified. There is physiologic activity in the GI and tracts within the abdomen and pelvis. There is a focus of intense hypermetabolism in the left lower quadrant, adjacent to or arising from the sigmoid. This demonstrate SUV max of approximately 7. Sigmoid does show moderate diverticulosis. No other abnormalities are seen. IMPRESSION: 1. No evidence of pulmonary parenchymal or mediastinal hypermetabolism. 2. Indeterminate focus of uptake in the posterior midline larynx at the level of the vocal cords. Direct visualization would be useful for further evaluation. 3. Focus of hypermetabolism in the left lower quadrant adjacent to or arising from the sigmoid colon which does appear to be involved by diverticulosis. Endoscopy would be useful for further evaluation. Dictated by: Dictated on workstation # [id number]
== END ==
LOC: RAD 07:26
PROVIDERS: ATTEND Internal Medicine Critical Care Medicine
DX: J44.9 Chronic obstructive pulmonary disease, unspecified (principal); J30.9 Allergic rhinitis, unspecified; F17.201 Nicotine dependence, unspecified, in remission; R91.1 Solitary pulmonary nodule; Z86.19 Personal history of other infectious and parasitic diseases

== ENCOUNTER → 2018-12-27 | Outpatient (CLI) | payer MEDICARE ==
--- NOTE | 2018-12-27 09:33 | Diagnostic Imaging Report ---
PROCEDURE: CT chest without contrast. TECHNIQUE: Multiple contiguous axial images were obtained through the chest without the use of intravenous contrast. Auto Exposure Controls were utilized during the CT exam to meet ALARA standards for radiation dose reduction. INDICATION: Shortness of breath. COMPARISON: Correlation is made with CT chest study from 06/08/2018. FINDINGS: No axillary lymphadenopathy is detected. Hilar and mediastinal evaluation is limited without intravenous contrast but no gross abnormality is seen. Aorta is calcified but nonaneurysmal. There are coronary arterial calcifications present. No pericardial or pleural fluid is identified. Centrilobular emphysematous changes in both lungs are again seen. Slightly irregular density in the right lung apex appears to be less prominent on today's study. In addition, the irregular, semisolid/ground glass opacity in the left upper lobe on prior exam is barely visible on today's study. The band of parenchymal density in the right middle lobe demonstrates significant improvement since prior CT. No new mass or opacity is identified. The upper abdomen is unremarkable. IMPRESSION: Overall improved appearance of the chest when compared with examination from 06/08/2018. There has been improved aeration bilaterally. No discrete mass or concerning abnormality is seen. Marked centrilobular emphysematous changes are again noted. Dictated by: Dictated on workstation # [id number]
== END ==
LOC: RAD 08:45
PROVIDERS: ATTEND Nurse Practitioner Family
DX: J43.2 Centrilobular emphysema (principal); J30.9 Allergic rhinitis, unspecified; F17.201 Nicotine dependence, unspecified, in remission; R91.1 Solitary pulmonary nodule; Z86.19 Personal history of other infectious and parasitic diseases
CPT/HCPCS: 71250

== ENCOUNTER 2020-03-27 11:05 | Inpatient (IN) | payer MEDICARE ==
[~2020-03-27] VITALS: Ht 165.1 cm; Wt 65.4 kg
[~2020-03-27 11:05] MED LIST changes: -ENAL5TAB PO; +ENLP5T PO
[2020-03-27] MEDS ORDERED: RT-ALBUTEROL/IPRATROPIUM 3 ML (DUONEB) VIAL ONE (11:38)
--- NOTE | 2020-03-27 11:42 | Diagnostic Imaging Report ---
Portable erect AP chest at 1118 hours. INDICATION: Shortness of breath. FINDINGS: The heart size is within normal limits and stable when compared to 06/24/2018. The chronic pulmonary changes noted on the prior study are again evident. However, in the interval since the prior study, a vague area of increased density has developed in the right lung base near the diaphragm. This finding does suggest mild pneumonia/atelectasis superimposed on the underlying chronic pulmonary disease. As on the prior exam, there is still blunting of the left costophrenic angle. This may be secondary to pleural thickening or to small effusion. The mediastinum is not widened. The osseous structures are intact. IMPRESSION: The appearance of the chest has worsened since the prior study as mild pneumonia/atelectasis has developed in the right lung base. A follow-up study would be recommended for continued evaluation. Dictated by: Dictated on workstation # [id number]
[2020-03-27 11:55] LABS: ABG OXYGEN SATURATION 93 % (94-100); ABG PCO2 44 MMHG (35-45); ABG PO2 72 MMHG (79-93); ABG TCO2 23.3 MMOL/L (21.0-31.0)
[2020-03-27 11:57] LABS: ABG PH 7.32 (7.37-7.43); ALLENS TEST POSITIVE; PATIENT TEMP 99.3; VENTILATOR NO
[2020-03-27 11:58] LABS: BASOPHILS % (AUTO) 0 % (0-10); EOSINOPHILS % (AUTO) 0 % (0-10); HEMATOCRIT 44 % (40-54); HEMOGLOBIN 14.4 G/DL (13.3-17.7); LYMPHOCYTES # (AUTO) 1.8 X 10^3 (1.0-4.0); LYMPHOCYTES % (AUTO) 27 % (12-44); MEAN CORPUSCULAR HEMOGLOBIN 28 PG (25-34); MEAN CORPUSCULAR HGB CONC 33 G/DL (32-36); MEAN CORPUSCULAR VOLUME 86 FL (80-99); MEAN PLATELET VOLUME 10.8 FL (7.4-10.4); MONOCYTES # (AUTO) 0.7 X 10^3 (0.0-1.0); MONOCYTES % (AUTO) 10 % (0-12); NEUTROPHILS % (AUTO) 62 % (42-75); PLATELET COUNT 188 10^3/uL (130-400); RED CELL DISTRIBUTION WIDTH 16.4 % (10.0-14.5); WHITE BLOOD COUNT 6.4 10^3/uL (4.3-11.0)
[2020-03-27 12:11] LABS: ALBUMIN 4.5 GM/DL (3.2-4.5)
[2020-03-27 12:12] LABS: PROTHROMBIN TIME PATIENT 13.5 SEC (12.2-14.7)
[2020-03-27 12:13] LABS: CALCIUM 8.8 MG/DL (8.5-10.1)
[2020-03-27 12:14] LABS: TOTAL PROTEIN 8.5 GM/DL (6.4-8.2)
[2020-03-27] MEDS ORDERED: methylPREDNISolone 125 MG (Solu-MEDROL) VIAL IVP ONE (12:15)
[2020-03-27 12:16] LABS: BILIRUBIN,TOTAL 0.4 MG/DL (0.1-1.0)
[2020-03-27 12:17] LABS: CREATININE SERUM 1.69 MG/DL (0.60-1.30)
--- NOTE | 2020-03-27 12:17 | ED Respiratory ---
General Chief Complaint: Respiratory Problems Stated Complaint: SOA;WEAKNESS Nursing Triage Note: PT SENT FROM DR BUSTAMANTE OFFICE WITH COMPLAINT OF SOA. PER [facility] OFFICE, PT O2 SATS WERE 62% ON RA. PT STATES SYMPTOMS HAVE BEEN GOING ON FOR ABOUT A MONTH. STATES SOA HAS WORSENED TO THE POINT OF HAVING DIFFICULTY EATING. Source: patient, other (Dr. Hahn) Exam Limitations: no limitations History of Present Illness Date Seen by Provider: Mar 27, 2020 Time Seen by Provider: 11:06 Initial Comments This 69-year-old gentleman with oxygen dependent COPD presents to the emergency room in respiratory distress. He has had problems with cough and shortness of breath for over a month. He presented to Dr. Hahn's clinic today and was found to have oxygen saturations in the 50s on his nasal cannula. He was promptly sent to the emergency room. He denies any fever. He has no chest pain. He normally wears oxygen at 4 L/m by nasal cannula and arrives with his portable tank. He is alert and oriented. He is tripoding. Patient's reports he may have had a brief syncopal episode on Thursday. He has no known cardiac history as an adult but did have some type of cardiac procedure as a young child. Neither he nor his knows exactly what this was. Patient quit smoking many years ago. reports he has not been eating or drinking well for several days. He has lost his appetite. Allergies and Home Medications Allergies Coded Allergies: No Known Drug Allergies (Unverified , 06/23/18) Home Medications Albuterol Sulfate 0.63 Mg/3 Ml Vial.neb, 0.63 MG IH TID, (Reported) Albuterol/Ipratropium 4 Gm Aero, 2 PUFF IH QID, (Reported) Enalapril Maleate 5 Mg Tablet, 5 MG PO DAILY, (Reported) Fluticasone/Salmeterol 1 Each Blst.w.dev, 1 EACH IH BID, (Reported) Lactobacillus Acidophilus 1 Each Tablet, 1 EACH PO DAILY, (Reported) Montelukast Sodium 10 Mg Tablet, 10 MG PO HS, (Reported) Patient Home Medication List Home Medication List Reviewed: Yes Review of Systems Review of Systems Constitutional: no symptoms reported EENTM: no symptoms reported Respiratory: see HPI Cardiovascular: no symptoms reported Gastrointestinal: no symptoms reported Genitourinary: no symptoms reported Musculoskeletal: no symptoms reported Skin: no symptoms reported Psychiatric/Neurological: No Symptoms Reported Hematologic/Lymphatic: No Symptoms Reported Immunological/Allergic: no symptoms reported Past Udwjgny-Kfsgfm-Zcmixi Hx Past Med/Social Hx: Reviewed Nursing Past Med/Soc Hx Patient Social History Alcohol Use: Regular Use Recreational Drug Use: No Smoking Status: Former Smoker Type Used: Cigarettes Former Smoker, Quit: Jun 23, 2011 Contact w/Someone Who Travel: No Recent Infectious Disease Expo: No Recent Hopitalizations: No Immunizations Up To Date Tetanus Booster (TDap): Unknown PED Vaccines UTD: Yes Date of Pneumonia Vaccine: Jul 14, 2016 Date of Influenza Vaccine: Jul 13, 2017 Seasonal Allergies Seasonal Allergies: Yes Past Medical History Surgeries: Yes (HEART SURGERY-7YRS OLD, HERNIA) Appendectomy Respiratory: Yes (LUNG NODULES, O2 4L NC) COPD Currently Using CPAP: No Currently Using BIPAP: No Cardiac: Yes High Cholesterol, Hypertension Neurological: No Reproductive Disorders: No Sexually Transmitted Disease: No HIV/AIDS: No Gastrointestinal: Yes Musculoskeletal: Yes Arthritis Endocrine: No HEENT: No Loss of Vision: Denies Hearing Impairment: Denies Cancer: No Psychosocial: No Integumentary: No Blood Disorders: No Adverse Reaction/Blood Tranf: No Physical Exam Vital Signs - First Documented 03/27/20 11:05 Temp 37.6 Pulse 121 Resp 24 B/P (MAP) 136/98 (111) Pulse Ox 82 O2 Delivery Nasal Cannula O2 Flow Rate 6.00 Capillary Refill : Less Than 3 Seconds Height: 5'3.00" Weight: 140lbs. 0.0oz. 63.104014mq; 23.00 BMI Method: General Appearance: WD/WN, no apparent distress HEENT: PERRL/EOMI, normal ENT inspection Respiratory: decreased breath sounds; No crackles; wheezing, other (Severely decreased air movement, tripoding) Cardiovascular: regular rate, rhythm, no edema, no murmur Gastrointestinal: non tender, soft; No distended Extremities: normal inspection, no pedal edema Neurologic/Psychiatric: top lift trimmer II-XII nml as tested, no motor/sensory deficits, alert, normal mood/affect, oriented x 3 Skin: normal color, warm/dry Focused Exam Sepsis Stage: Severe Sepsis Possible Source: Pulmonary Lactate Level 03/27/20 11:26: Lactic Acid Level 2.04*H Time of Focused Exam: 13:46 Respiratory: Lungs Clear, Decreased Breath Sounds Cardiovascular: Regular Rate, Rhythm, No Edema, No Murmur, Normal Peripheral Pulses Capillary Refill: Less Than 3 Seconds Peripheral Pulses: 2+ Radial Pulses (R), 2+ Radial Pulses (L) Skin: normal color, warm/dry Lactic Acid Level Laboratory Tests Test 03/27/20 11:26 Lactic Acid Level 2.04 MMOL/L (0.50-2.00) *H Within 3hrs of presentation: Admin fluids, Admin 30ml/kg IBW due to BMI>30, Admin ABX, Blood cultures prior to ABX's, Focus exam, Lactate level, Other (this focused exam was performed by telemedicine from the main ER as patient was in the respiratory ER. A nurse in the respiratory ER assisted.) Progress/Results/Core Measures Suspected Sepsis Recent Fever Within 48 Hours: No Infection Criteria Present: None New/Unexplained Altered Menta: No Sepsis Screen: No Definite Risk SIRS Temperature: Pulse: 121 Respiratory Rate: 24 Laboratory Tests 03/27/20 11:26: White Blood Count 6.4 Blood Pressure 136 /98 Mean: 111 03/27/20 11:26: Lactic Acid Level 2.04*H Laboratory Tests 03/27/20 11:26: Creatinine 1.69H, INR Comment 1.0, Platelet Count 188, Total Bilirubin 0.4 Results/Orders Lab Results Laboratory Tests Test 03/27/20 11:26 03/27/20 11:40 Range/Units White Blood Count 6.4 4.3-11.0 10^3/uL Red Blood Count 5.16 4.35-5.85 10^6/uL Hemoglobin 14.4 13.3-17.7 G/DL Hematocrit 44 40-54 % Mean Corpuscular Volume 86 80-99 FL Mean Corpuscular Hemoglobin 28 25-34 PG Mean Corpuscular Hemoglobin Concent 33 32-36 G/DL Red Cell Distribution Width 16.4 H 10.0-14.5 % Platelet Count 188 130-400 10^3/uL Mean Platelet Volume 10.8 H 7.4-10.4 FL Neutrophils (%) (Auto) 62 42-75 % Lymphocytes (%) (Auto) 27 12-44 % Monocytes (%) (Auto) 10 0-12 % Eosinophils (%) (Auto) 0 0-10 % Basophils (%) (Auto) 0 0-10 % Neutrophils # (Auto) 4.0 1.8-7.8 X 10^3 Lymphocytes # (Auto) 1.8 1.0-4.0 X 10^3 Monocytes # (Auto) 0.7 0.0-1.0 X 10^3 Eosinophils # (Auto) 0.0 0.0-0.3 10^3/uL Basophils # (Auto) 0.0 0.0-0.1 10^3/uL Prothrombin Time 13.5 12.2-14.7 SEC INR Comment 1.0 0.8-1.4 Activated Partial Thromboplast Time 26 24-35 SEC Sodium Level 139 135-145 MMOL/L Potassium Level 5.0 3.6-5.0 MMOL/L Chloride Level 103 98-107 MMOL/L Carbon Dioxide Level 20 L 21-32 MMOL/L Anion Gap 16 H 5-14 MMOL/L Blood Urea Nitrogen 65 H 7-18 MG/DL Creatinine 1.69 H 0.60-1.30 MG/DL Estimat Glomerular Filtration Rate 41 BUN/Creatinine Ratio 38 Glucose Level 124 H 70-105 MG/DL Lactic Acid Level 2.04 *H 0.50-2.00 MMOL/L Calcium Level 8.8 8.5-10.1 MG/DL Corrected Calcium 8.4 L 8.5-10.1 MG/DL Magnesium Level 2.2 1.6-2.4 MG/DL Total Bilirubin 0.4 0.1-1.0 MG/DL Aspartate Amino Transf (AST/SGOT) 57 H 5-34 U/L Alanine Aminotransferase (ALT/SGPT) 58 H 0-55 U/L Alkaline Phosphatase 58 40-136 U/L Lactate Dehydrogenase 472 H 125-220 U/L Myoglobin 406.4 H 10.0-92.0 NG/ML Troponin I < 0.028 <0.028 NG/ML C-Reactive Protein High Sensitivity 13.09 H 0.00-0.50 MG/DL B-Type Natriuretic Peptide < 10.0 <100.0 PG/ML Total Protein 8.5 H 6.4-8.2 GM/DL Albumin 4.5 3.2-4.5 GM/DL Procalcitonin 0.16 H <0.10 NG/ML Blood Gas Puncture Site LEFT RADIAL Blood Gas Patient Temperature 99.3 Arterial Blood pH 7.32 *L 7.37-7.43 Arterial Blood Partial Pressure CO2 44 35-45 MMHG Arterial Blood Partial Pressure O2 72 L 79-93 MMHG Arterial Blood HCO3 22 L 23-27 MMOL/L Arterial Blood Total CO2 23.3 21.0-31.0 MMOL/L Arterial Blood Oxygen Saturation 93 L 94-100 % Arterial Blood Base Excess -3.0 L -2.5-2.5 MMOL/L Ross Test POSITIVE Blood Gas Ventilator Setting NO Blood Gas Inspired Oxygen UNK My Orders Orders - BRIANNA SOLIMAN MD Cbc With Automated Diff (03/27/20 11:23) Magnesium (03/27/20 11:23) Chest 1 View, Ap/Pa Only (03/27/20 11:23) Ekg Tracing (03/27/20 11:23) Comprehensive Metabolic Panel (03/27/20 11:23) Myoglobin Serum (03/27/20 11:23) Protime With Inr (03/27/20 11:23) Partial Thromboplastin Time (03/27/20 11:23) O2 (03/27/20 11:23) Monitor-Rhythm Ecg Trace Only (03/27/20 11:23) Lipid Panel (03/28/20 06:00) Ed Iv/Invasive Line Start (03/27/20 11:23) BNP (03/27/20 11:23) Troponin I (03/27/20 11:23) Hs C Reactive Protein (03/27/20 11:23) Procalcitonin (Pct) (03/27/20 11:23) LDH (03/27/20 11:24) Coronavirus Sars-Cov-2 So 2019 (03/27/20 11:24) Covid-19 Igg Only So (03/27/20 11:24) Arterial Blood Gas (03/27/20 11:29) Albuterol/Ipra Inhalation Soln (Duoneb I (03/27/20 11:38) Methylprednisolone Sod Succ (Solu-Medrol (03/27/20 12:15) Piperacillin Sodium/Tazobactam (Zosyn Vi (03/27/20 12:30) Blood Culture (03/27/20 12:33) Sputum Culture (6/30/20 12:33) Urinalysis (03/27/20 12:33) Urine Culture (03/27/20 12:33) Vital Signs Adult Sepsis Patie Q15M (03/27/20 12:33) Remove Rings In Anticipation O (03/27/20 12:33) Lactic Acid Analyzer (03/27/20 12:33) Ed Iv/Invasive Line Start (03/27/20 12:50) Ns Iv 1000 Ml (Sodium Chloride 0.9%) (03/27/20 12:50) Ns Iv 1000 Ml (Sodium Chloride 0.9%) (03/27/20 13:32) Medications Given in ED Current Medications Medications Dose Ordered Sig/Rolando Route Start Time Stop Time Status Last Admin Dose Admin Albuterol/ Ipratropium 3 ml STK-MED ONCE .ROUTE 03/27/20 11:38 03/27/20 11:41 DC 03/27/20 11:44 3 ML Methylprednisolone Sodium Succinate 125 mg ONCE ONCE IVP 03/27/20 12:15 03/27/20 12:16 DC 03/27/20 12:21 125 MG Piperacillin Sod/ Tazobactam Sod 4.5 gm/Sodium Chloride 100 ml @ 200 mls/hr ONCE ONCE IV 03/27/20 12:30 03/27/20 12:59 DC 03/27/20 12:45 200 MLS/HR Vital Signs/I&O 03/27/20 03/27/20 11:05 11:05 Temp 37.6 Pulse 121 Resp 24 B/P (MAP) 136/98 (111) Pulse Ox 82 O2 Delivery Nasal Cannula Nasal Cannula O2 Flow Rate 6.00 6.00 Capillary Refill : Less Than 3 Seconds Blood Pressure Mean: 111 Progress Note #1: Time: 12:28 Progress Note Patient was hypoxic with an initial oxygen saturation of 82 percent on he did gradually improve with rest. However, he was moving very little air and chest sounds were very tight. BiPAP was applied and a DuoNeb treatment administered. Patient was feeling better and had improved auscultation after these interventions. CRP is elevated and there is suspicion of infiltrate in the right lower lung on chest x-ray. We will start antibiotic therapy with Zosyn. Patient was swabbed for duckworth virus. Progress Note #2: Time: 13:51 Progress Note Patient may have severe sepsis. 2 L of IV normal saline have been ordered to complete the 30 ML per kilogram large-volume bolus. ECG Initial ECG Impression Date: Mar 27, 2020 Initial ECG Impression Time: 11:24 Initial ECG Rate: 115 Comment Sinus tachycardia with no ST elevation or depression. No abnormal intervals or axis deviation. Diagnostic Imaging Diagonstic Imaging: Xray Plain Films/CT/US/NM/MRI: chest Comments Chest x-ray viewed by me and report reviewed. See report below: NAME: [facility] REC#: [id number] PT STATUS: REG ER : 1950 PHYSICIAN: BRIANNA SOLIMAN MD ADMIT DATE: 03/27/20/ER Signed Date of Exam:03/27/20 CHEST 1 VIEW, AP/PA ONLY Portable erect AP chest at 1118 hours. INDICATION: Shortness of breath. FINDINGS: The heart size is within normal limits and stable when compared to 06/24/2018. The chronic pulmonary changes noted on the prior study are again evident. However, in the interval since the prior study, a vague area of increased density has developed in the right lung base near the diaphragm. This finding does suggest mild pneumonia/atelectasis superimposed on the underlying chronic pulmonary disease. As on the prior exam, there is still blunting of the left costophrenic angle. This may be secondary to pleural thickening or to small effusion. The mediastinum is not widened. The osseous structures are intact. IMPRESSION: The appearance of the chest has worsened since the prior study as mild pneumonia/atelectasis has developed in the right lung base. A follow-up study would be recommended for continued evaluation. Dictated by: Dictated on workstation # [id number] Dict: 03/27/20 1138 Trans: 03/27/20 1205 [id number] Interpreted by: JOHNATHAN DENNEY MD Electronically signed by: JOHNATHAN DENNEY MD 03/27/20 1205 Departure Communication (Admissions) Time/Spoke to Admitting Phy: 13:21 Dr. Aurora Hahn at 13:14 Dr. Roberson at 13:45 Impression Primary Impression: Right lower lobe pneumonia Qualified Codes: J18.1 - Lobar pneumonia, unspecified organism Additional Impressions: COPD with exacerbation Acute kidney injury Disposition: ADMITTED INPATIENT Condition: Improved Admissions Decision to Admit Reason: Admit from ER (General) Decision to Admit/Date: Mar 27, 2020 Time/Decision to Admit Time: 11:10 Departure-Patient Inst. Referrals: [facility] (PCP) Primary Care Physician MEHRDAD GALLARDO APRN (Family) Primary Care Physician Copy Copies To 1: YAJAIRA AMEZQUITA JOSHUA T MD Mar 27, 2020 12:17
[2020-03-27 12:20] LABS: MAGNESIUM 2.2 MG/DL (1.6-2.4)
[2020-03-27] MEDS ORDERED: PIPERACILLIN SODIUM/TAZOBACTAM 4.5 GM in NS (IVPB) 100 ML IV ONE (12:30)
[2020-03-27] MEDS ORDERED: NS IV 1000 ML 1,000 ML IV SCH ×2 (12:50→13:32)
[2020-03-27 14:59] LABS: BILIRUBIN,URINE NEGATIVE (NEGATIVE); CLARITY,URINE CLEAR; COLOR,URINE YELLOW; GLUCOSE, URINE (UA) NEGATIVE (NEGATIVE); KETONES,URINE TRACE (NEGATIVE); LEUKOCYTE ESTERASE ,URINE TRACE (NEGATIVE); NITRITE,URINE NEGATIVE (NEGATIVE); PROTEIN,URINE 2+ (NEGATIVE)
[2020-03-27 15:06] LABS: BACTERIA,URINE TRACE /HPF; RBC,URINE 0-2 /HPF; WBC,URINE 0-2 /HPF
[2020-03-27] MEDS ORDERED: NOREPINEPHRINE 4 MG/250 ML 250 ML IV SCH (15:29)
[2020-03-27] MEDS ORDERED: VASOPRESSIN INJECTION 20 UNIT in NORMAL SALINE 100 ML IV SCH (15:29)
[2020-03-27] MEDS ORDERED: ONDANSETRON 4 MG/2 ML (SDV) Z0FRAN IV PRN (15:30)
[2020-03-27] MEDS ORDERED: RT-ALBUTEROL SULF 2.5 MG/3 ML PRE-MIX VIAL IH PRN (15:30)
[2020-03-27] MEDS ORDERED: EPINEPHrine 1 MG INJECTION 2 MG in NS (IVPB) 248 ML IV SCH (15:30)
[2020-03-27] MEDS ORDERED: CATHETER FLUSH 10 ML SYR IV PRN (15:45)
[2020-03-27] MEDS: NS IV 1000 ML 1,000 ML IV SCH ×2 (16:33→22:59)
[2020-03-27 16:37] VITALS: BP 128/80
[2020-03-27] MEDS ORDERED: ALBUTEROL/IPRATROP (COMBIVENT RESPIMAT) 4 GM INHALER IH PRN (17:00)
[2020-03-27 17:04] VITALS: BP 128/80
[2020-03-27] MEDS: methylPREDNISolone 40 MG/ML (Solu-MEDROL) VIAL IV SCH ×2 (17:36→22:59)
[2020-03-27] MEDS ORDERED: RT-ALBUTEROL/IPRATROPIUM 3 ML (DUONEB) VIAL IH SCH (18:00)
[2020-03-27] MEDS ORDERED: BISACODYL 10 MG SUPP (DULCOLAX) PR PRN (19:00)
[2020-03-27] MEDS ORDERED: CALCIUM CARBONATE 500 MG (TUMS) TAB.CHEW PO PRN (19:00)
[2020-03-27] MEDS ORDERED: MELATONIN 3 MG TABLET PO PRN (19:00)
[2020-03-27] MEDS ORDERED: guaiFENesin/CODEINE (ROBITUSSIN AC) 10ML UDC PO PRN (19:00)
[2020-03-27] MEDS ORDERED: diphenhydrAMINE 25 MG TAB (BENADRYL) PO PRN (19:00)
[2020-03-27] MEDS ORDERED: DOCUSATE SODIUM 100 MG (COLACE) CAP PO PRN (19:00)
[2020-03-27] MEDS ORDERED: LOPERAMIDE 2 MG (IMODIUM) TABLET PO PRN (19:00)
[2020-03-27] MEDS ORDERED: HYDROcodone/APAP 5 MG/325 MG (LORTAB) TAB PO PRN (19:00)
[2020-03-27] MEDS ORDERED: ALPRAZolam 0.25 MG (XANAX) TAB PO PRN (19:00)
[2020-03-27] MEDS ORDERED: ONDANSETRON 4 MG/2 ML (SDV) Z0FRAN IVP PRN (19:00)
[2020-03-27] MEDS ORDERED: fentaNYL INJECTION 100 MCG/2 ML AMP IVP PRN (19:00)
[2020-03-27] MEDS ORDERED: ACETAMINOPHEN 500 MG TAB (TYLENOL) PO PRN (19:00)
[2020-03-27 19:32] VITALS: BP 130/77
[2020-03-27] MEDS: ENOXAPARIN 40 MG/0.4 ML (LOVENOX) SYR SC SCH (21:13)
[2020-03-27] MEDS: polyethylene glycoL POWDER 17 GM (MIRALAX) PACK PO SCH (21:13)
[2020-03-27] MEDS: SENNA W/DOCUSATE (SENOKOT S) TABLET PO SCH (21:13)
[2020-03-27] MEDS: PIPERACILLIN/TAZO 4.5 GM/NS 100 ML IV SCH ×2 (21:13)
[2020-03-27 23:01] VITALS: BP 116/71
[2020-03-28] VITALS (7 sets, daily range): BP systolic 133–158; BP diastolic 79–97
[2020-03-28] MEDS: ALBUTEROL/IPRATROP (COMBIVENT RESPIMAT) 4 GM INHALER IH SCH ×6 (01:27→21:32)
[2020-03-28] MEDS: PIPERACILLIN/TAZO 4.5 GM/NS 100 ML IV SCH ×6 (01:43→18:52)
[2020-03-28 03:43] LABS: ABG BASE EXCESS -4.2 MMOL/L (-2.5-2.5); ABG OXYGEN SATURATION 73 % (94-100); ABG PCO2 43 MMHG (35-45); ABG PO2 41 MMHG (79-93); ABG TCO2 22.8 MMOL/L (21.0-31.0)
[2020-03-28 03:47] LABS: ALLENS TEST YES-POS; INSPIRED O2 35%; PATIENT TEMP 35.4; VENTILATOR NO
[2020-03-28 03:56] LABS: BASOPHILS % (AUTO) 0 % (0-10); EOSINOPHILS % (AUTO) 0 % (0-10); HEMATOCRIT 39 % (40-54); HEMOGLOBIN 12.7 G/DL (13.3-17.7); LYMPHOCYTES # (AUTO) 0.5 X 10^3 (1.0-4.0); LYMPHOCYTES % (AUTO) 14 % (12-44); MEAN CORPUSCULAR HEMOGLOBIN 28 PG (25-34); MEAN CORPUSCULAR HGB CONC 33 G/DL (32-36); MEAN CORPUSCULAR VOLUME 85 FL (80-99); MEAN PLATELET VOLUME 10.2 FL (7.4-10.4); MONOCYTES # (AUTO) 0.2 X 10^3 (0.0-1.0); MONOCYTES % (AUTO) 5 % (0-12); NEUTROPHILS # (AUTO) 2.8 X 10^3 (1.8-7.8); NEUTROPHILS % (AUTO) 82 % (42-75); PLATELET COUNT 178 10^3/uL (130-400); RED CELL DISTRIBUTION WIDTH 16.4 % (10.0-14.5); WHITE BLOOD COUNT 3.4 10^3/uL (4.3-11.0)
[2020-03-28 04:06] LABS: ALBUMIN 3.8 GM/DL (3.2-4.5); CHLORIDE 113 MMOL/L (98-107); POTASSIUM 4.6 MMOL/L (3.6-5.0); SODIUM 142 MMOL/L (135-145)
[2020-03-28 04:07] LABS: CALCIUM 7.5 MG/DL (8.5-10.1)
[2020-03-28 04:08] LABS: GLUCOSE 228 MG/DL (70-105); TOTAL PROTEIN 6.9 GM/DL (6.4-8.2); TRIGLYCERIDES 137 MG/DL (<150); VLDL CHOLESTEROL 27 MG/DL (5-40)
[2020-03-28 04:09] LABS: CARBON DIOXIDE 16 MMOL/L (21-32)
[2020-03-28 04:10] LABS: BILIRUBIN,TOTAL 0.3 MG/DL (0.1-1.0)
[2020-03-28 04:12] LABS: ALKALINE PHOSPHATASE 46 U/L (40-136); CREATININE SERUM 1.05 MG/DL (0.60-1.30); GFR ESTIMATED > 60
[2020-03-28 04:13] LABS: BUN/CREATININE RATIO 32; CHOLESTEROL 113 MG/DL (< 200)
[2020-03-28 04:14] LABS: HDL CHOLESTEROL 25 MG/DL (40-60)
[2020-03-28 04:15] LABS: ALANINE AMINOTRANSFERASE 55 U/L (0-55)
[2020-03-28 04:31] LABS: PHOSPHORUS 1.9 MG/DL (2.3-4.7)
[2020-03-28 04:33] LABS: MAGNESIUM 2.2 MG/DL (1.6-2.4)
[2020-03-28] MEDS: NS IV 1000 ML 1,000 ML IV SCH (05:24)
[2020-03-28] MEDS: methylPREDNISolone 40 MG/ML (Solu-MEDROL) VIAL IV SCH ×4 (05:24→22:36)
[2020-03-28] MEDS ORDERED: LACTATED RINGERS 1,000 ML IV ONE (06:15)
--- NOTE | 2020-03-28 06:16 | Pulmonary Consultation ---
History of Present Illness History of Present Illness Date Seen by Provider: Mar 28, 2020 Time Seen by Provider: 06:13 Date of Admission Allergies and Home Medications Allergies Coded Allergies: No Known Drug Allergies (Unverified , 06/23/18) Home Medications Albuterol Sulfate 0.63 Mg/3 Ml Vial.neb, 0.63 MG IH TID, (Reported) Albuterol/Ipratropium 4 Gm Aero, 2 PUFF IH QID, (Reported) Enalapril Maleate 5 Mg Tablet, 5 MG PO DAILY, (Reported) Fluticasone/Salmeterol 1 Each Blst.w.dev, 1 EACH IH BID, (Reported) Lactobacillus Acidophilus 1 Each Tablet, 1 EACH PO DAILY, (Reported) Montelukast Sodium 10 Mg Tablet, 10 MG PO HS, (Reported) Past Lsouqek-Ahqaog-Hklvqe Hx Past Med/Social Hx: Reviewed Nursing Past Med/Soc Hx Patient Social History Alcohol Use: Regular Use Recreational Drug Use: No Smoking Status: Former Smoker Type Used: Cigarettes Former Smoker, Quit: Jun 23, 2011 Recent Foreign Travel: No Contact w/Someone Who Travel: No Recent Infectious Disease Expo: No Recent Hopitalizations: No Immunizations Up To Date Tetanus Booster (TDap): Unknown PED Vaccines UTD: Yes Date of Pneumonia Vaccine: Jul 14, 2016 Date of Influenza Vaccine: Jul 13, 2017 Seasonal Allergies Seasonal Allergies: Yes Past Medical History Surgeries: Yes (HEART SURGERY-7YRS OLD, HERNIA) Appendectomy Respiratory: Yes (LUNG NODULES, O2 4L NC) COPD Currently Using CPAP: No Currently Using BIPAP: No Cardiac: Yes High Cholesterol, Hypertension Neurological: No Reproductive Disorders: No Sexually Transmitted Disease: No HIV/AIDS: No Gastrointestinal: Yes Musculoskeletal: Yes Arthritis Endocrine: No HEENT: No Loss of Vision: Denies Hearing Impairment: Denies Cancer: No Psychosocial: No Integumentary: No Blood Disorders: No Adverse Reaction/Blood Tranf: No Family Medical History Myocardial infarction 19 MOTHER, Onset:30's - 40 Review of Systems Time Seen by Provider: 06:14 Sepsis Event Evaluation Height, Weight, BMI Height: 5'3.00" Weight: 140lbs. 0.0oz. 63.884286rc; 23.29 BMI Method: Exam Exam Vital Signs Date Time Temp Pulse Resp B/P (MAP) Pulse Ox O2 Delivery O2 Flow Rate FiO2 03/28/20 03:44 97 NIV Bilevel 35 03/28/20 03:43 35.4 85 20 133/79 (97) 97 NIV Bilevel 35.00 03/28/20 01:49 94 23 96 35.00 03/28/20 01:28 55 Room Air 21 03/28/20 01:00 64 03/27/20 23:05 97 High Flow N/C 4.00 03/27/20 23:01 35.8 78 16 116/71 (86) 100 High Flow N/C 4.00 03/27/20 21:52 Room Air 03/27/20 21:00 High Flow N/C 6.00 03/27/20 20:00 97 High Flow N/C 6.00 03/27/20 19:32 35.8 92 18 130/77 (94) 97 High Flow N/C 2.00 03/27/20 19:09 102 03/27/20 17:58 78 Room Air 21 03/27/20 17:04 36.6 104 20 128/80 97 High Flow N/C 2.00 03/27/20 16:37 36.6 104 20 128/80 (96) 97 High Flow N/C 2.00 03/27/20 16:30 High Flow N/C 2.00 03/27/20 15:28 103 24 139/90 95 NIV Bilevel 03/27/20 12:08 118 18 95 35.00 03/27/20 11:05 37.6 121 24 136/98 (111) 82 Nasal Cannula 6.00 03/27/20 11:05 Nasal Cannula 6.00 I & O 03/28/20 07:00 Intake Total 4450 ml Output Total 250 ml Balance 4200 ml Height & Weight Height: 5'3.00" Weight: 140lbs. 0.0oz. 63.481653su; 23.29 BMI Method: Respiratory: Lungs Clear, Decreased Breath Sounds Cardiovascular: Regular Rate, Rhythm, No Edema, No Murmur, Normal Peripheral Pulses Capillary Refill: Less Than 3 Seconds Peripheral Pulses: 2+ Radial Pulses (R), 2+ Radial Pulses (L) Gastrointestinal: non tender, soft; No distended Results Lab Laboratory Tests 03/27/20 11:26 03/28/20 03:40 Assessment/Plan Assessment/Plan RLL pneumonia -Continue Zosyn Metabolic acidosis -Change NS to LR Obesity COPDAE -Solumedrol TOPHER GIBSON DO Mar 28, 2020 06:16
[2020-03-28] MEDS: LACTATED RINGERS 1,000 ML IV SCH (06:21)
[2020-03-28] MEDS: polyethylene glycoL POWDER 17 GM (MIRALAX) PACK PO SCH ×2 (08:07→19:54)
[2020-03-28] MEDS: SENNA W/DOCUSATE (SENOKOT S) TABLET PO SCH ×2 (08:07→19:54)
[2020-03-28] MEDS ORDERED: SODIUM PHOSPHATE INJ 30 MM in NS (IVPB) 250 ML IV ONE (09:00)
--- NOTE | 2020-03-28 09:23 | History & Physical-Hospitalist ---
History of Present Illness HPI/Chief Complaint CC: SOB HPI: This is a 69yoWM clinic pt [facility] and Dr. Hahn, who was sent by Dr. Hahn's office after O2 sat was 70% in the clinic. He is an oxygen dependent COPD pt end stage on 4 liters of O2 20/04. He was noted to have elevated lactic acid consistent with sepsis and a right lower lobe pneumonia with acute renal failure and exacerbation of COPD. He was swabbed for Covid 19 and that is pending at this time. Pt reports that he is doing well but he did not use his oxygen going to the bathroom and he desaturated. Overall the nurse has no concerns and the pt has no concerns right now. After rounds I was notified of COVID-19 + results so patient will be moved to Hospitalist service after Dr Monique graciously accepted. Source: patient Exam Limitations: no limitations Date Seen 03/28/20 Time Seen by a Provider: 10:00 Attending Physician Shital Zamorano DO [facility] Referring Physician Date of Admission Mar 27, 2020 at 14:03 Home Medications & Allergies Home Medications Reviewed patient Home Medication Reconciliation performed by pharmacy medication reconciliations food science technician and/or nursing. Patients Allergies have been reviewed. Allergies Allergies Coded Allergies No Known Drug Allergies (Unverified06/23/18) Past Xlihvig-Fnpszg-Vgdlbl Hx Past Med/Social Hx: Reviewed Nursing Past Med/Soc Hx, Reviewed and Corrections made Patient Social History Marrital Status: single Employed/Student: unemployed Alcohol Use: Denies Use Recreational Drug Use: No Smoking Status: Former Smoker Former Smoker, Quit: Jun 23, 2011 Type Used: Cigarettes Recent Foreign Travel: No Contact w/other who traveled: No Recent Hopitalizations: No Recent Infectious Disease Expo: No Immunizations Up To Date Tetanus Booster (TDap): Unknown Pediatric: Yes Date of Pneumonia Vaccine: Jul 14, 2016 Date of Influenza Vaccine: Jul 13, 2017 Seasonal Allergies Seasonal Allergies: Yes Past Medical History Surgeries: Appendectomy, Orthopedic Respiratory: COPD, Emphysema, Pneumonia Currently Using CPAP: No Currently Using BIPAP: No Cardiac: High Cholesterol, Hypertension Reproductive: No Sexually Transmitted Disease: No HIV/AIDS: No Gastrointestinal: Chronic Constipation Musculoskeletal: Arthritis Loss of Vision: Denies Hearing Impairment: Denies History of Blood Disorders: No Adverse Reaction to Blood Brooke: No Family History Myocardial infarction 19 MOTHER, Onset:s - 40 Review of Systems Constitutional: malaise, weakness Respiratory: cough, dyspnea on exertion, short of breath, wheezing Cardiovascular: no symptoms reported Gastrointestinal: constipation Musculoskeletal: back pain Skin: no symptoms reported Psychiatric/Neurological: Anxiety Physical Exam Physical Exam Vital Signs Vital Signs - First Documented 03/27/20 03/27/20 11:05 17:58 Temp 37.6 Pulse 121 Resp 24 B/P (MAP) 136/98 (111) Pulse Ox 82 O2 Delivery Nasal Cannula O2 Flow Rate 6.00 FiO2 21 Capillary Refill : Less Than 3 Seconds Height, Weight, BMI Height: 5'3.00" Weight: 140lbs. 0.0oz. 63.107797wv; 23.29 BMI Method: General Appearance: No Apparent Distress, Anxious, Chronically ill, Thin HEENT: PERRL/EOMI, TMs Normal, Normal ENT Inspection, Pharynx Normal, Moist Mucous Membranes Neck: Full Range of Motion, Normal Inspection, Non Tender Respiratory: Accessory Muscle Use, Decreased Breath Sounds Cardiovascular: Regular Rate, Rhythm, No Edema, No Gallop, No JVD, No Murmur, Normal Peripheral Pulses Extremity: Normal Capillary Refill, Normal Inspection, Normal Range of Motion, Non Tender, No Calf Tenderness, No Pedal Edema Neurologic/Psychiatric: Alert, Oriented x3, No Motor/Sensory Deficits, Normal Mood/Affect Results Results/Procedures Labs Laboratory Tests 03/27/20 11:26 03/28/20 03:40 Patient resulted labs reviewed. Assessment/Plan Admission Diagnosis Assessment: Sepsis PNA AECOPD HTN O2 dependance Acute kidney injury COVID-19 + Plan: IV steroids IV antibiotics Dr. Hahn appreciated COVID swab + Monitor oxygen saturation Monitor bicarbonate at 16 Admission Status: Inpatient Order (span 2 midnights) Reason for Inpatient Admission: COVID + Diagnosis/Problems Diagnosis/Problems (1) Pneumonia due to severe acute respiratory syndrome coronavirus (2) COPD with exacerbation Status: Acute (3) Acute kidney injury Status: Acute (4) Right lower lobe pneumonia Status: Acute Qualifiers: Pneumonia type: due to unspecified organism Qualified Codes: J18.1 - Lobar pneumonia, unspecified organism (5) COPD (chronic obstructive pulmonary disease) Clinical Quality Measures DVT/VTE Risk/Contraindication: Risk Factor Score Per Nursin RFS Level Per Nursing on Admit: 4+=Very High SHITAL ZAMORANO DO Mar 28, 2020 09:23
--- NOTE | 2020-03-28 14:43 | Physician Query Clarification ---
PQ-Conflicting Diagnosis Admission/Discharge Admission Date: Mar 27, 2020 at 14:03 Discharge Date: The medical record reflects the following clinical scenario: History/Risk Factors: Sepsis Acute Kidney injury Pneumonia Clinical Findings: T 37.6, P 121, Resp 24, BP 136/98, pulse ox 82%, Lactic acid 2.04, eGFR 41, Creatinine 1.69, BUN 65. WBC 6.4 dropping to 3.4. Treatment:IV Zosyn, IV Sodium Chloride 1,000ml@1,000mls/hr. Question: Do you agree with the impression, "Patient may have severe sepsis per ED record, Dr. Hardin? Please document a response in Progress Note or Discharge Summary. 1. Yes 2. No 3. Other, with explanation of clinical findings 4. Clinically undetermined, no explanation for clinical findings. PHYSICIAN RESPONSE Do you agree w/Consulting Dx?: No Please remember a lack of response to the above will prompt a phone page by [facility]I /Coding staff. In responding to this query, please exercise your independent professional judgment. The purpose of this communication is to more accurately reflect the complexity of your patients condition. The fact that a question is asked does not imply that any particular answer is desired or expected. Thank you for your timely response to this clarification. Requestors name: Ember Doll [facility] [place] Phone #ext [phone] or [phone] THIS PHYSICIAN QUERY FORM IS A PERMANENT PART OF THE MEDICAL RECORD EMBER DOLL Mar 28, 2020 14:43 JOSE E ZAMORANO DO Mar 28, 2020 17:29
--- NOTE | 2020-03-28 14:52 | Physician Query Clarification ---
PQ-Intro New Diagnosis Admission/Discharge Admission Date: Mar 27, 2020 at 14:03 Discharge Date: The medical record reflects the following clinical scenario: Dr. Simon, History/Risk Factors: Sepsis Pneumonia Emphysema Clinical Findings: T 37.6, P 121, Resp 24, Pulse ox 82%. Blood gases 03/27: pH 7.32, pC02 44, p02 72, Total C02 23.3, 02 sat 93% dropping to 73% on 03/28, Base excess -3.0. Accessory muscle use, decreased breath sounds. Treatment: 02 6 Liters nasal cannula. IVP Solu Medrol 125mg. Question: What condition best reflects the above clinical scenario? Please document a response in the Progress Noter or Discharge Summary. 1. Acute respiratory failure with hypoxia. 2. Hypoxia without diagnosis of acute respiratory failure. 3. Other, with explanation of the clinical findings. 4. Clinically undetermined, no explanation for the clinical findings. PHYSICIAN RESPONSE What condition reflects above: 1 Please remember a lack of response to the above will prompt a phone page by CDI/Coding staff. In responding to this query, please exercise your independent professional judgment. The purpose of this communication is to more accurately reflect the complexity of your patients condition. The fact that a question is asked does not imply that any particular answer is desired or expected. Thank you for your timely response to this clarification. Requestors name: Ember Doll [facility] Phone # ext [phone] or [phone] THIS PHYSICIAN QUERY FORM IS A PERMANENT PART OF THE MEDICAL RECORD EMBER DOLL Mar 28, 2020 14:52 JOSE E SIMON DO Mar 28, 2020 17:29
[2020-03-28] MEDS ORDERED: REMDESIVIR INJ (NON-FORMULARY) 200 MG in NS (IVPB) 210 ML IV NR (15:30)
[2020-03-28] MEDS ORDERED: BENA40TA5 PO (16:18)
[2020-03-28] MEDS ORDERED: AMLO5TAB9 PO (16:18)
[2020-03-28] MEDS ORDERED: FLUT1DIS27 PO (16:18)
[2020-03-28] MEDS ORDERED: ASPI-983 PO (16:19)
--- NOTE | 2020-03-28 16:19 | NUR ---
I CALLED THE PATIENTS ROOM PHONE- HE WAS NOT ABLE TO ANSWER MY QUESTIONS OR TALK MUCH AND WANTED ME TO CALL HIS ABEL. I THEN CALLED ABEL AND WENT THRU THE EXT MED HISTORY TO COMPLETE THE MED REC ABEL WENT AND GOT THE PATIENTS MEDICATIONS AND WE WENT THRU THEM OVER THE PHONE. ALL INFORMATION SHE GAVE ME MATCHED THE EXT MED HISTORY OTC MEDS: ASPIRIN 81
[2020-03-28] MEDS ORDERED: IPRA3AMP31 NEB (16:22)
--- NOTE | 2020-03-28 17:25 | Diagnostic Imaging Report ---
EXAMINATION: Chest 1 view HISTORY: PICC line placement. COMPARISON: 03/27/2020. FINDINGS: There has been interval placement of a right PICC with the tip overlying the low SVC. Stable hyperinflated lungs with stable small left pleural effusion. No large pneumothorax. Stable opacities are seen in the mid right lung and right lung base. The cardiac silhouette is stable. No acute osseous abnormalities. IMPRESSION: 1. Interval placement of a right PICC with the tip overlying the low SVC. 2. Stable opacities in the right lung base and right midlung with stable small left pleural effusion. Dictated by: Dictated on workstation # [id number]
[2020-03-28] MEDS: ENOXAPARIN 40 MG/0.4 ML (LOVENOX) SYR SC SCH (18:52)
--- NOTE | 2020-03-28 19:13 | Consultation-Cardiology ---
HPI-Cardiology Cardiology Consultation: Date of Consultation 03/28/20 Date of Admission Attending Physician Shital Simon DO Admitting Physician [facility] Consulting Physician Arash ROBERSON MD HPI: Time Seen by a Provider: 17:45 Chief Complaint: Shortness of breath This is a 69-year-old gentleman who is a patient of Dr. Hahn. He has severe oxygen-dependent COPD. He was transferred to the ER from Dr. Hahn's office. He presented with hypoxia, cough and shortness of breath. In the emergency department he was found to be in respiratory distress. Possible brief episode of syncope on Thursday. No known cardiac history as an adult however he had some sort of procedure when he was much younger. Details not available. Patient was a previous smoker but has now quit. He denies any chest pain, palpitations. No pertinent family history. COVID screen was done which was positive. Review of Systems-Cardiology Review of Systems Constitutional: As described under HPI; No As described under HPI, No no symptoms reported, No chills, No fever, No lightheadedness Eyes: No As described under HPI, No no symptoms reported, No blindness, No blurred vision, No contact lenses, No drainage, No decreased acuity, No foreign body sensation, No pain, No vision change Ears/Nose/Throat: No As described under HPI, No no symptoms reported, No chronic hearing loss, No ear discharge, No ear pain, No nasal drainage, No ulcerations Respiratory: No no symptoms reported; As described under HPI; No As described under HPI, No cough; orthopnea, shortness of breath; No SOB with excertion Cardiovascular: No no symptoms reported; As described under HPI; No As described under HPI, No chest pain, No edema, No irregular heart rate, No lightheadedness, No palpitations Gastrointestinal: No no symptoms reported, No As described under HPI, No abdomen distended, No abdominal pain, No blood streaked bowels, No constipation, No diarrhea, No nausea, No vomiting, No stool coloration changes Genitourinary: No As described under HPI, No burning, No dysuria, No discharge, No frequency, No flank pain, No hematuria, No urgency Skin: No rash, No skin related problems, No ulcerations Psychiatric/Neurological: No anxiety, No depression, No seizure, No focal weakness, No syncope Hematologic: No bleeding abnormalities DFI-Ahnycd-Aolcdk Hx Patient Social History Marrital Status: single Employed/Student: unemployed Alcohol Use: Denies Use Recreational Drug Use: No Smoking Status: Former Smoker Type Used: Cigarettes Recent Foreign Travel: No Recent Infectious Disease Expo: No Immunizations Up To Date Tetanus Booster (TDap): Unknown Date of Pneumonia Vaccine: Jul 14, 2016 Date of Influenza Vaccine: Jul 13, 2017 Past Medical History PMH As described under Assessment. Family Medical History Family History: Myocardial infarction 19 MOTHER, Onset:30's - 40 Allergies and Home Medications Allergies Coded Allergies: No Known Drug Allergies (Unverified , 06/23/18) Home Medications Albuterol/Ipratropium 4 Gm Aero, 2 PUFF IH QID, (Reported) Amlodipine Besylate 5 Mg Tablet, 5 MG PO DAILY, (Reported) Aspirin 81 Mg Tablet.dr, 81 MG PO DAILY, (Reported) Benazepril HCl 40 Mg Tab, 40 MG PO HS, (Reported) Fluticasone/Salmeterol 1 Each Blst.w.dev, 1 PUFF PO BID, (Reported) Ipratropium/Albuterol Sulfate 3 Ml Ampul.neb, 3 ML NEB QID PRN for SHORTNESS OF BREATH, (Reported) Patient Home Medication List Home Medication List Reviewed: Yes Physical Exam-Cardiology Physical Exam Vital Signs/I&O 03/28/20 03/28/20 03/29/20 03/29/20 23:17 23:17 00:00 01:00 Pulse 70 70 Resp 27 B/P (MAP) 123/60 (81) Pulse Ox 99 O2 Delivery NIV Bilevel NIV Bilevel NIV Bilevel O2 Flow Rate 35.00 FiO2 35 35 03/29/20 03/29/20 03/29/20 03/29/20 01:55 03:00 03:01 03:20 Temp 36.3 Pulse 90 Resp 23 Pulse Ox 97 O2 Delivery NIV Bilevel NIV Bilevel O2 Flow Rate 35.00 FiO2 35 35 03/29/20 03/29/20 03/29/20 03/29/20 04:00 05:14 07:00 08:00 Pulse 96 92 96 Resp 21 30 B/P (MAP) 156/98 (117) 161/91 (114) Pulse Ox 97 96 O2 Delivery NIV Bilevel Nasal Cannula Nasal Cannula O2 Flow Rate 35.00 6.00 6.00 7/2/20 7/2/20 7/2/20 7/2/20 08:22 08:50 09:42 10:16 Temp 36.5 Pulse 98 Resp 23 Pulse Ox 94 O2 Delivery High Flow N/C NIV Bilevel O2 Flow Rate 6.00 35.00 30.00 03/29/20 00:00 Intake Total 620 ml Output Total 350 ml Balance 270 ml Capillary Refill : Less Than 3 Seconds Constitutional: appears stated age, AAO x 3, apparent distress, well-developed, well-nourished HEENT: PERRL; No discharge; hearing is well preserved, oral hygience is good; No ulceration, No xanthelasmas are seen Neck: carotid bruit, carotid pulses are 2 + bilaterally Respiratory: respiratory distress, chest is bilaterally symmetric, other (decreased breath sounds bilaterally.) Cardiovascular: regular rate-rhythm, tachycardia, S1 and S2; No diastolic murmur, No systolic murmur Gastrointestinal: soft, audible bowel sounds; No spleenomegaly Extremities: normal range of motion, non-tender, normal inspection; No clubbing, No cyanosis; no lower extremity edema bilateral; No significant edema Neurologic/Psychiatric: no motor/sensory deficits, alert, normal mood/affect, oriented x 3, power is 5/5 both on sides Skin: normal color, warm/dry Data Review Labs Laboratory Tests 03/29/20 01:41: Blood Gas Puncture Site LEFT RADIAL, Blood Gas Patient Temperature 36.3, Arterial Blood pH 7.35L, Arterial Blood Partial Pressure CO2 48H, Arterial Blood Partial Pressure O2 76L, Arterial Blood HCO3 26, Arterial Blood Total CO2 27.5, Arterial Blood Oxygen Saturation 95, Arterial Blood Base Excess 0.9, Ross Test YES-POS, Blood Gas Ventilator Setting NO, Blood Gas Inspired Oxygen 35% 03/29/20 02:10: White Blood Count 8.2, Red Blood Count 4.42, Hemoglobin 12.2L, Hematocrit 38L, Mean Corpuscular Volume 85, Mean Corpuscular Hemoglobin 28, Mean Corpuscular Hemoglobin Concent 32, Red Cell Distribution Width 16.5H, Platelet Count 234, Mean Platelet Volume 10.6H, Neutrophils (%) (Auto) 87H, Lymphocytes (%) (Auto) 8L, Monocytes (%) (Auto) 6, Eosinophils (%) (Auto) 0, Basophils (%) (Auto) 0, Neutrophils # (Auto) 7.1, Lymphocytes # (Auto) 0.6L, Monocytes # (Auto) 0.5, Eosinophils # (Auto) 0.0, Basophils # (Auto) 0.0, Sodium Level 147H, Potassium Level 4.1, Chloride Level 112H, Carbon Dioxide Level 22, Anion Gap 13, Blood Urea Nitrogen 22H, Creatinine 0.96, Estimat Glomerular Filtration Rate > 60, BUN/Creatinine Ratio 23, Glucose Level 200H, Calcium Level 7.5L, Phosphorus Level 2.2L, Magnesium Level 2.4 03/29/20 10:05: Microbiology 03/27/20 Urine Culture - Final, Complete NO GROWTH 03/27/20 Blood Culture - Preliminary, Resulted No growth A/P-Cardiology Assessment/Admission Diagnosis Acute on chronic respiratory failure, Sepsis, Hypertension Plan Acute on chronic respiratory failure, patient has known history of oxygen dependent COPD. He is on BiPAP, still in respiratory distress. Defer to Dr. Hahn. Hypertension, was on amlodipine as an outpatient. Sepsis, defer to the primary team. COVID-19 positive. Thank you for your consultation. Please call me if you have any questions. Betina Roberson MD, FACP, FACC, FSCAI, FHRS, CCDS Interventional Cardiology Cardiac Electrophysiology Vascular Medicine and Endovascular Interventions Clinical Quality Measures DVT/VTE Risk/Contraindication: Risk Factor Score Per Nursin RFS Level Per Nursing on Admit: 4+=Very High Arash ROBERSON MD Mar 28, 2020 19:13
[2020-03-29] VITALS (9 sets, daily range): BP systolic 123–173; BP diastolic 60–121
[2020-03-29] MEDS: ALBUTEROL/IPRATROP (COMBIVENT RESPIMAT) 4 GM INHALER IH SCH ×6 (01:55→22:05)
[2020-03-29 02:03] LABS: ABG BASE EXCESS 0.9 MMOL/L (-2.5-2.5); ABG OXYGEN SATURATION 95 % (94-100); ABG PCO2 48 MMHG (35-45); ABG PH 7.35 (7.37-7.43); ABG PO2 76 MMHG (79-93); ABG TCO2 27.5 MMOL/L (21.0-31.0)
[2020-03-29 02:08] LABS: ALLENS TEST YES-POS; INSPIRED O2 35%
[2020-03-29 02:09] LABS: PATIENT TEMP 36.3; VENTILATOR NO
[2020-03-29] MEDS: PIPERACILLIN/TAZO 4.5 GM/NS 100 ML IV SCH ×6 (02:15→17:54)
[2020-03-29 02:42] LABS: BASOPHILS % (AUTO) 0 % (0-10); EOSINOPHILS % (AUTO) 0 % (0-10); HEMATOCRIT 38 % (40-54); HEMOGLOBIN 12.2 G/DL (13.3-17.7); LYMPHOCYTES # (AUTO) 0.6 X 10^3 (1.0-4.0); LYMPHOCYTES % (AUTO) 8 % (12-44); MEAN CORPUSCULAR HEMOGLOBIN 28 PG (25-34); MEAN CORPUSCULAR HGB CONC 32 G/DL (32-36); MEAN CORPUSCULAR VOLUME 85 FL (80-99); MEAN PLATELET VOLUME 10.6 FL (7.4-10.4); MONOCYTES # (AUTO) 0.5 X 10^3 (0.0-1.0); MONOCYTES % (AUTO) 6 % (0-12); NEUTROPHILS # (AUTO) 7.1 X 10^3 (1.8-7.8); NEUTROPHILS % (AUTO) 87 % (42-75); PLATELET COUNT 234 10^3/uL (130-400); RED CELL DISTRIBUTION WIDTH 16.5 % (10.0-14.5); WHITE BLOOD COUNT 8.2 10^3/uL (4.3-11.0)
[2020-03-29 03:10] LABS: BUN/CREATININE RATIO 23; CALCIUM 7.5 MG/DL (8.5-10.1); CARBON DIOXIDE 22 MMOL/L (21-32); CHLORIDE 112 MMOL/L (98-107); CREATININE SERUM 0.96 MG/DL (0.60-1.30); GFR ESTIMATED > 60; GLUCOSE 200 MG/DL (70-105); MAGNESIUM 2.4 MG/DL (1.6-2.4); PHOSPHORUS 2.2 MG/DL (2.3-4.7); POTASSIUM 4.1 MMOL/L (3.6-5.0); SODIUM 147 MMOL/L (135-145)
[2020-03-29] MEDS: methylPREDNISolone 40 MG/ML (Solu-MEDROL) VIAL IV SCH ×4 (05:02→23:04)
[2020-03-29] MEDS: LACTATED RINGERS 1,000 ML IV SCH (05:02)
--- NOTE | 2020-03-29 05:49 | Pulmonary Progress Note ---
Subjective Time Seen by a Provider: 05:44 Subjective/Events-last exam Pt is COVID positive. Monitoring in ICU. Sepsis Event Evaluation Height, Weight, BMI Height: 5'3.00" Weight: 140lbs. 0.0oz. [id number]; 23.29 BMI Method: Focused Exam Lactate Level 03/27/20 11:26: Lactic Acid Level 2.04*H 03/27/20 17:00: Lactic Acid Level 1.61 Time of Focused Exam: 13:46 Exam Exam Vital Signs Date Time Temp Pulse Resp B/P (MAP) Pulse Ox O2 Delivery O2 Flow Rate FiO2 03/29/20 05:14 High Flow N/C 6.00 03/29/20 04:00 96 21 156/98 (117) 97 NIV Bilevel 35.00 03/29/20 03:20 36.3 03/29/20 03:01 NIV Bilevel 35 03/29/20 03:00 NIV Bilevel 35 03/29/20 01:55 90 23 97 35.00 03/29/20 01:00 70 03/29/20 00:00 70 27 123/60 (81) 99 NIV Bilevel 35.00 03/28/20 23:17 NIV Bilevel 35 03/28/20 23:17 NIV Bilevel 35 03/28/20 22:37 36.3 NIV Bilevel 35.00 03/28/20 21:48 Nasal Cannula 5.00 03/28/20 21:33 96 Nasal Cannula 5.00 03/28/20 20:00 NIV Bilevel 35 03/28/20 20:00 91 23 133/92 (106) 97 NIV Bilevel 35.00 03/28/20 20:00 NIV Bilevel 35 03/28/20 20:00 36.3 NIV Bilevel 35.00 03/28/20 19:00 94 03/28/20 18:55 92 23 97 35.00 03/28/20 18:00 97 21 96 NIV Bilevel 35.00 03/28/20 17:00 101 22 137/97 (110) 97 NIV Bilevel 35.00 03/28/20 16:00 93 26 137/97 (110) 97 NIV Bilevel 35.00 03/28/20 16:00 NIV Bilevel 35 03/28/20 16:00 NIV Bilevel 35 03/28/20 14:59 95 23 97 35.00 03/28/20 14:42 NIV Bilevel 35.00 03/28/20 13:19 99 03/28/20 12:14 35.5 97 20 158/88 (111) 96 Nasal Cannula 5.00 03/28/20 12:00 High Flow N/C 5.00 03/28/20 12:00 High Flow N/C 5.00 03/28/20 10:44 93 Room Air 5.00 03/28/20 08:05 35.4 95 20 150/85 (106) 95 Nasal Cannula 5.00 03/28/20 08:00 High Flow N/C 5.00 03/28/20 08:00 High Flow N/C 5.00 03/28/20 07:33 95 Room Air 5.00 03/28/20 07:03 94 I & O 03/29/20 07:00 Intake Total 970 ml Output Total 1250 ml Balance -280 ml Height & Weight Height: 5'3.00" Weight: 140lbs. 0.0oz. [id number]; 23.29 BMI Method: General Appearance: No Apparent Distress, Anxious, Chronically ill, Thin HEENT: PERRL/EOMI, TMs Normal, Normal ENT Inspection, Pharynx Normal, Moist Mucous Membranes Neck: Full Range of Motion, Normal Inspection, Non Tender Respiratory: Accessory Muscle Use, Decreased Breath Sounds Cardiovascular: Regular Rate, Rhythm, No Edema, No Gallop, No JVD, No Murmur, Normal Peripheral Pulses Capillary Refill: Less Than 3 Seconds Peripheral Pulses: 2+ Radial Pulses (R), 2+ Radial Pulses (L) Gastrointestinal: non tender, soft; No distended Extremity: Normal Capillary Refill, Normal Inspection, Normal Range of Motion, Non Tender, No Calf Tenderness, No Pedal Edema Neurologic/Psychiatric: Alert, Oriented x3, No Motor/Sensory Deficits, Normal Mood/Affect Results Lab Laboratory Tests 03/27/20 11:26 03/28/20 03:40 03/29/20 02:10 Assessment/Plan Assessment/Plan Acute on chronic respiratory failure -Continue BiPAP PRN -Currently on NC at 6 liters -- titrate down as tolerated COVID is positive -Remsedivir started -Pt is on solumedrol secondary to COPDAE RLL pneumonia -Continue Zosyn Hypernatremia -Change IVF to 1/2 NS at 30cc/hr Metabolic acidosis -Change NS to LR Obesity COPDAE -Solumedrol -Combivent add advair BILL -monitor TOPHER VELASCO DO Mar 29, 2020 05:49
[2020-03-29] MEDS: 1/2 NS IV SOLUTION 1,000 ML IV SCH (06:34)
[2020-03-29] MEDS: SENNA W/DOCUSATE (SENOKOT S) TABLET PO SCH ×2 (07:43→19:24)
[2020-03-29] MEDS: polyethylene glycoL POWDER 17 GM (MIRALAX) PACK PO SCH ×2 (07:43→19:24)
[2020-03-29] MEDS ORDERED: CHLORASEPTIC LOZENGE MM PRN (09:30)
[2020-03-29] MEDS: ADVAIR HFA 115/21 MCG INHALER 8 GM IH SCH ×2 (10:16→19:34)
--- NOTE | 2020-03-29 10:43 | Cardiology Progress Note ---
Cardiology SOAP Progress Note Subjective: Continues to be short of breath. Objective: I&O/Vital Signs 03/28/20 03/28/20 03/29/20 03/29/20 23:17 23:17 00:00 01:00 Pulse 70 70 Resp 27 B/P (MAP) 123/60 (81) Pulse Ox 99 O2 Delivery NIV Bilevel NIV Bilevel NIV Bilevel O2 Flow Rate 35.00 FiO2 35 35 03/29/20 03/29/20 03/29/20 03/29/20 01:55 03:00 03:01 03:20 Temp 36.3 Pulse 90 Resp 23 Pulse Ox 97 O2 Delivery NIV Bilevel NIV Bilevel O2 Flow Rate 35.00 FiO2 35 35 03/29/20 03/29/20 03/29/20 03/29/20 04:00 05:14 07:00 08:00 Pulse 96 92 96 Resp 21 30 B/P (MAP) 156/98 (117) 161/91 (114) Pulse Ox 97 96 O2 Delivery NIV Bilevel Nasal Cannula Nasal Cannula O2 Flow Rate 35.00 6.00 6.00 03/29/20 03/29/20 03/29/20 03/29/20 08:22 08:50 09:42 10:16 Temp 36.5 Pulse 98 Resp 23 Pulse Ox 94 O2 Delivery High Flow N/C NIV Bilevel O2 Flow Rate 6.00 35.00 30.00 03/29/20 00:00 Intake Total 620 ml Output Total 350 ml Balance 270 ml Weight (Pounds): 140 Weight (Ounces): 0.0 Weight (Calculated Kilograms): 63.562297 Constitutional: appears stated age, AAO x 3, apparent distress, well-developed, well-nourished Cardiovascular: tachycardia Gastrointestional: No spleenomegaly Neurologic/Psychiatric: alert, normal mood/affect, oriented x 3 Results/Procedures: Labs Laboratory Tests 03/29/20 01:41: Blood Gas Puncture Site LEFT RADIAL, Blood Gas Patient Temperature 36.3, Arterial Blood pH 7.35L, Arterial Blood Partial Pressure CO2 48H, Arterial Blood Partial Pressure O2 76L, Arterial Blood HCO3 26, Arterial Blood Total CO2 27.5, Arterial Blood Oxygen Saturation 95, Arterial Blood Base Excess 0.9, Ross Test YES-POS, Blood Gas Ventilator Setting NO, Blood Gas Inspired Oxygen 35% 03/29/20 02:10: White Blood Count 8.2, Red Blood Count 4.42, Hemoglobin 12.2L, Hematocrit 38L, Mean Corpuscular Volume 85, Mean Corpuscular Hemoglobin 28, Mean Corpuscular Hemoglobin Concent 32, Red Cell Distribution Width 16.5H, Platelet Count 234, Mean Platelet Volume 10.6H, Neutrophils (%) (Auto) 87H, Lymphocytes (%) (Auto) 8L, Monocytes (%) (Auto) 6, Eosinophils (%) (Auto) 0, Basophils (%) (Auto) 0, Neutrophils # (Auto) 7.1, Lymphocytes # (Auto) 0.6L, Monocytes # (Auto) 0.5, Eosinophils # (Auto) 0.0, Basophils # (Auto) 0.0, Sodium Level 147H, Potassium Level 4.1, Chloride Level 112H, Carbon Dioxide Level 22, Anion Gap 13, Blood Urea Nitrogen 22H, Creatinine 0.96, Estimat Glomerular Filtration Rate > 60, BUN/Creatinine Ratio 23, Glucose Level 200H, Calcium Level 7.5L, Phosphorus Level 2.2L, Magnesium Level 2.4 03/29/20 10:05: Microbiology 03/27/20 Urine Culture - Final, Complete NO GROWTH 03/27/20 Blood Culture - Preliminary, Resulted No growth A/P: Assessment/Dx: Acute on chronic respiratory failure, Sepsis, Hypertension Plan: Acute on chronic respiratory failure, patient has known history of oxygen dependent COPD. He is on BiPAP, still in respiratory distress. Defer to Dr. Hahn. Unlikely significant cardiac contribution considering normal BNP and troponin. Hypertension, was on amlodipine as an outpatient. Sepsis, defer to the primary team. COVID-19 positive. Thank you for your consultation. Please call me if you have any questions. Betina Roberson MD, FACP, FACC, FSCAI, FHRS, CCDS Interventional Cardiology Cardiac Electrophysiology Vascular Medicine and Endovascular Interventions Focused Exam Lactate Level 03/27/20 11:26: Lactic Acid Level 2.04*H 03/27/20 17:00: Lactic Acid Level 1.61 Time of Focused Exam: 13:46 Arash ROBERSON MD Mar 29, 2020 10:43
--- NOTE | 2020-03-29 10:44 | Progress Note - Hospitalist ---
Subjective HPI/CC On Admission Date Seen by Provider: Mar 29, 2020 Time Seen by Provider: 10:38 CC: SOB HPI: This is a 69yoWM clinic pt of [facility] and Dr. Hahn, who was sent by Dr. Hahn's office after O2 sat was 70% in the clinic. He is an oxygen dependent COPD pt end stage on 4 liters of O2 20/04. He was noted to have elevated lactic acid consistent with sepsis and a right lower lobe pneumonia with acute renal failure and exacerbation of COPD. He was swabbed for Covid 19 and that is pending at this time. Pt reports that he is doing well but he did not use his oxygen going to the bathroom and he desaturated. Overall the nurse has no concerns and the pt has no concerns right now. After rounds I was notified of COVID-19 + results so patient will be moved to Hospitalist service after Dr Monique graciously accepted. Subjective/Events-last exam Pt reports doing well this morning. Off BiPAP and tolerating well. Ate breakfast. Focused Exam Lactate Level 03/27/20 11:26: Lactic Acid Level 2.04*H 03/27/20 17:00: Lactic Acid Level 1.61 Time of Focused Exam: 13:46 Objective Exam Vital Signs Vital Signs Date Time Temp Pulse Resp B/P (MAP) Pulse Ox O2 Delivery O2 Flow Rate FiO2 03/29/20 10:16 98 23 94 30.00 03/29/20 09:42 NIV Bilevel 03/29/20 08:22 36.5 03/29/20 08:00 161/91 (114) 03/29/20 03:01 35 Capillary Refill : Less Than 3 Seconds General Appearance: No Apparent Distress, Chronically ill Respiratory: No Accessory Muscle Use, Decreased Breath Sounds; No Wheezing; Other (on 6lpm NC) Cardiovascular: Regular Rate, Rhythm, No Murmur Neurologic/Psychiatric: Alert, Oriented x3, Normal Mood/Affect Results/Procedures Lab Laboratory Tests 03/29/20 02:10 Patient resulted labs reviewed. Assessment/Plan Assessment and Plan Assess & Plan/Chief Complaint Severe Sepsis due to PNA- present on arrival AECOPD Acute on chronic hypoxic respiratory failure COVID 19 Continue on abx Continue Remdesivir Solu-Medrol Pulm/TeleICU consulted Continue Advair HTN Syncope BP control good overnight, trending up this morning Resume amlodipine Hyperglycemia Fasting BS this AM 200 Likely due to steroids Add SSI BILL- resolved DVt ppx: lovenox Clinical Quality Measures DVT/VTE Risk/Contraindication: Risk Factor Score Per Nursin RFS Level Per Nursing on Admit: 4+=Very High CHAYA MONIQUE MD Mar 29, 2020 10:44
[2020-03-29] MEDS ORDERED: amLODIPine 5 MG (NORVASC) TAB PO NR (11:00)
[2020-03-29] MEDS: inSUlin ASPART (NovoLOG) 1 UNIT/0.01 ML (CHARGE PER UNIT) SC SCH ×3 (11:37→20:23)
[2020-03-29] MEDS: REMDESIVIR INJ (NON-FORMULARY) 100 MG in NS (IVPB) 230 ML IV SCH (15:12)
[2020-03-29] MEDS: ENOXAPARIN 40 MG/0.4 ML (LOVENOX) SYR SC SCH (17:54)
[2020-03-30] VITALS (7 sets, daily range): BP systolic 152–168; BP diastolic 86–96
[2020-03-30] MEDS: PIPERACILLIN/TAZO 4.5 GM/NS 100 ML IV SCH ×4 (02:25→11:14)
[2020-03-30] MEDS: ALBUTEROL/IPRATROP (COMBIVENT RESPIMAT) 4 GM INHALER IH SCH ×6 (02:25→23:47)
[2020-03-30 02:32] LABS: BASOPHILS % (AUTO) 0 % (0-10); EOSINOPHILS % (AUTO) 0 % (0-10); HEMATOCRIT 36 % (40-54); HEMOGLOBIN 11.8 G/DL (13.3-17.7); LYMPHOCYTES # (AUTO) 0.4 X 10^3 (1.0-4.0); LYMPHOCYTES % (AUTO) 6 % (12-44); MEAN CORPUSCULAR HEMOGLOBIN 28 PG (25-34); MEAN CORPUSCULAR HGB CONC 33 G/DL (32-36); MEAN CORPUSCULAR VOLUME 86 FL (80-99); MEAN PLATELET VOLUME 10.5 FL (7.4-10.4); MONOCYTES # (AUTO) 0.4 X 10^3 (0.0-1.0); MONOCYTES % (AUTO) 6 % (0-12); NEUTROPHILS # (AUTO) 5.8 X 10^3 (1.8-7.8); NEUTROPHILS % (AUTO) 89 % (42-75); PLATELET COUNT 239 10^3/uL (130-400); RED CELL DISTRIBUTION WIDTH 16.7 % (10.0-14.5); WHITE BLOOD COUNT 6.6 10^3/uL (4.3-11.0)
[2020-03-30 02:49] LABS: CHLORIDE 109 MMOL/L (98-107); POTASSIUM 3.9 MMOL/L (3.6-5.0); SODIUM 147 MMOL/L (135-145)
[2020-03-30 02:50] LABS: CALCIUM 7.6 MG/DL (8.5-10.1)
[2020-03-30 02:51] LABS: GLUCOSE 181 MG/DL (70-105)
[2020-03-30 02:53] LABS: CARBON DIOXIDE 28 MMOL/L (21-32)
[2020-03-30 02:55] LABS: CREATININE SERUM 0.83 MG/DL (0.60-1.30); GFR ESTIMATED > 60; PHOSPHORUS 2.3 MG/DL (2.3-4.7)
[2020-03-30 02:56] LABS: BUN/CREATININE RATIO 31
[2020-03-30 02:57] LABS: MAGNESIUM 2.5 MG/DL (1.6-2.4)
[2020-03-30] MEDS: 1/2 NS IV SOLUTION 1,000 ML IV SCH (06:15)
[2020-03-30] MEDS: inSUlin ASPART (NovoLOG) 1 UNIT/0.01 ML (CHARGE PER UNIT) SC SCH ×4 (06:15→20:58)
[2020-03-30] MEDS: methylPREDNISolone 40 MG/ML (Solu-MEDROL) VIAL IV SCH ×3 (06:16→17:17)
[2020-03-30] MEDS: ADVAIR HFA 115/21 MCG INHALER 8 GM IH SCH ×2 (07:08→19:31)
[2020-03-30] MEDS: SENNA W/DOCUSATE (SENOKOT S) TABLET PO SCH ×2 (08:10→19:38)
[2020-03-30] MEDS: polyethylene glycoL POWDER 17 GM (MIRALAX) PACK PO SCH ×2 (08:10→19:38)
[2020-03-30] MEDS: amLODIPine 5 MG (NORVASC) TAB PO SCH (08:10)
--- NOTE | 2020-03-30 11:20 | NUR ---
"RD ASSESSMENT PMHx: COPD; emphysema; hypercholesterolemia; HTN; chronic constipation PT INTERACTION: Note pt is COVID+ and all diet hx information is per chart review. Note avg PO intake of 42% x2d. Note last BM was 03/30, and pt currently on bowel regimen of senna BID; and miralax BID, per chart review. Note unable to determine recent wt hx. ABNORMAL NUTRITION-RELATED LAB VALUES LOW: Ca 7.6 HIGH: Na 147; Cl 109; BUN 26; glu 181; Mg 2.5 Est. kcal needs: 6632-6089 kcal | 25-30 kcal/kg Est. Pro needs: 57-68 g Pro | 1.0-1.2 g Pro/kg PES STATEMENT: Inadequate oral intake (NI-2.1) related to loss of appetite as evidenced by chart review | avg PO intake 42% x2d INTERVENTION: Continue with current diet order of Heart Healthy diet. Add Ensure Enlive (vary) to meals TID, for increased kcal intake. Provides 350 kcal and 13 g Pro per serving. Will continue to follow and reassess as pt needs, intake, and status change. MONITOR/EVALUATE: PO Intake; Plan of Care; Hydration Status; Weight Status; Lab Values [place], MS, RD, LD"
--- NOTE | 2020-03-30 13:41 | Progress Note - Hospitalist ---
Subjective HPI/CC On Admission Date Seen by Provider: Mar 30, 2020 Time Seen by Provider: 10:10 CC: SOB HPI: This is a 69yoWM clinic pt of counts include [facility] beds at the [facility] and Dr. Hahn, who was sent by Dr. Hahn's office after O2 sat was 70% in the clinic. He is an oxygen dependent COPD pt end stage on 4 liters of O2 /. He was noted to have elevated lactic acid consistent with sepsis and a right lower lobe pneumonia with acute renal failure and exacerbation of COPD. He was swabbed for Covid 19 and that is pending at this time. Pt reports that he is doing well but he did not use his oxygen going to the bathroom and he desaturated. Overall the nurse has no concerns and the pt has no concerns right now. After rounds I was notified of COVID-19 + results so patient will be moved to Hospitalist service after Dr Monique graciously accepted. Subjective/Events-last exam He reports feeling better today. He denies feeling short of breath. He does have a cough. He denies any fevers or chills. He has no other complaints or concerns. Focused Exam Lactate Level 03/27/20 17:00: Lactic Acid Level 1.61 Time of Focused Exam: 13:46 Objective Exam Vital Signs Vital Signs Date Time Temp Pulse Resp B/P (MAP) Pulse Ox O2 Delivery O2 Flow Rate FiO2 03/30/20 12:48 103 03/30/20 12:31 25 157/86 (109) 93 High Flow N/C 4.00 03/30/20 08:12 37.0 03/30/20 02:25 30 Capillary Refill : Less Than 3 Seconds General Appearance: No Apparent Distress, Chronically ill Respiratory: Lungs Clear, No Respiratory Distress, Decreased Breath Sounds, Other (Wearing nasal cannula) Cardiovascular: Regular Rate, Rhythm, No Edema, No Murmur Gastrointestinal: Normal Bowel Sounds, Non Tender, Soft Extremity: Normal Inspection, Non Tender, No Pedal Edema Neurologic/Psychiatric: Alert, Oriented x3, No Motor/Sensory Deficits, Normal Mood/Affect Skin: Normal Color, Warm/Dry Results/Procedures Lab Laboratory Tests 03/30/20 02:20 Patient resulted labs reviewed. Assessment/Plan Assessment and Plan Assess & Plan/Chief Complaint Viral sepsis Acute exacerbation of COPD Acute on chronic hypoxic respiratory failure COVID-19 Procalcitonin remains normal Discontinue antibiotics Continue Remdesivir Continue Solu-Medrol Continue Advair Transfer to medical floor HTN Syncope Continue amlodipine Steroid-induced hyperglycemia Sliding scale insulin DVT prophylaxis: Lovenox BILL, resolved Diagnosis/Problems Diagnosis/Problems (1) COVID-19 Status: Acute (2) Acute on chronic respiratory failure with hypoxia Status: Acute (3) COPD with exacerbation Status: Acute Clinical Quality Measures DVT/VTE Risk/Contraindication: Risk Factor Score Per Nursin RFS Level Per Nursing on Admit: 4+=Very High KELLY PIMENTEL MD Mar 30, 2020 13:41
[2020-03-30] MEDS: REMDESIVIR INJ (NON-FORMULARY) 100 MG in NS (IVPB) 230 ML IV SCH (15:26)
--- NOTE | 2020-03-30 17:10 | NUR ---
pt arrived to floor from ICU, report received from FABRICATION MACHINE OPERATOR
[2020-03-30] MEDS: ENOXAPARIN 40 MG/0.4 ML (LOVENOX) SYR SC SCH (17:18)
--- NOTE | 2020-03-30 23:47 | NUR ---
RT in Ct with vent pt Addendum: 03/30/20 at 2348 by ELADIO HILL RT Amended: Links added.
[2020-03-31] MEDS: ALBUTEROL/IPRATROP (COMBIVENT RESPIMAT) 4 GM INHALER IH SCH ×3 (02:54→11:03)
[2020-03-31 04:00] VITALS: BP 170/88
[2020-03-31] MEDS: inSUlin ASPART (NovoLOG) 1 UNIT/0.01 ML (CHARGE PER UNIT) SC SCH ×2 (05:08→12:22)
[2020-03-31] MEDS: 1/2 NS IV SOLUTION 1,000 ML IV SCH (05:14)
[2020-03-31] MEDS: methylPREDNISolone 40 MG/ML (Solu-MEDROL) VIAL IV SCH (05:14)
[2020-03-31] MEDS: ADVAIR HFA 115/21 MCG INHALER 8 GM IH SCH (07:13)
[2020-03-31 07:54] VITALS: BP 168/97
[2020-03-31] MEDS: polyethylene glycoL POWDER 17 GM (MIRALAX) PACK PO SCH (07:55)
[2020-03-31] MEDS: SENNA W/DOCUSATE (SENOKOT S) TABLET PO SCH (07:56)
[2020-03-31] MEDS: amLODIPine 5 MG (NORVASC) TAB PO SCH (07:56)
[2020-03-31] MEDS ORDERED: predniSONE 20 MG TAB PO NR (08:15)
[2020-03-31] MEDS ORDERED: amLODIPine 5 MG (NORVASC) TAB PO SCH (09:00)
[2020-03-31] MEDS ORDERED: lisINopril 40 MG (PRINIVIL) TABLET PO SCH (09:00)
[2020-03-31] MEDS ORDERED: PRED10TA22 PO (10:49)
--- NOTE | 2020-03-31 10:58 | Discharge Summary ---
Discharge Summary Hospital Course Was the Problem List Reviewed?: Yes Problems/Dx: (1) COVID-19 Status: Acute (2) Acute on chronic respiratory failure with hypoxia Status: Acute (3) COPD with exacerbation Status: Acute (4) Acute kidney injury Status: Resolved Hospital Course Date of Admission: Mar 27, 2020 at 14:03 Admission Diagnosis : Acute on chronic hypoxic respiratory failure due to COVID-19 and COPD Family Physician/Provider: Rashmi Waters Aprn Date of Discharge: 03/31/20 Discharge Diagnosis: Acute on chronic hypoxic respiratory failure due to COVID- 19 and COPD Hospital Course: Tera Lopez is a 69-year-old male who presented with shortness of breath and was admitted with COVID-19. He does require supplemental oxygen of 4 L at baseline. He was desaturating at his pulmonology visit. He was found to be positive for COVID-19. He was treated with the antiviral Remdesivir and steroids. His oxygen requirement returned to baseline. His course was c omplicated by an acute kidney injury which improved with IV fluid resuscitation. He was discharged home in stable condition. He should follow-up with his primary care physician in a couple weeks. Labs and Pending Lab Test: Laboratory Tests 03/30/20 11:13: Glucometer 265H 03/30/20 16:03: Glucometer 149H 03/30/20 20:54: Glucometer 244H 03/31/20 05:08: Glucometer 143H Microbiology 03/27/20 Urine Culture - Final, Complete NO GROWTH 03/27/20 Blood Culture - Preliminary, Resulted No growth Home Meds Active Prednisone 10 Mg Tab.ds.pk 10 Mg PO DAILY Take 6 tabs(60mg)daily,decrease by 1 tab(10mg)every other day. Reported Iprat-Albut 0.5-3(2.5) mg/3 ml (Ipratropium/Albuterol Sulfate) 3 Ml Ampul.neb 3 Ml NEB QID PRN Aspirin EC (Aspirin) 81 Mg Tablet.dr 81 Mg PO DAILY Benazepril HCl 40 Mg Tab 40 Mg PO HS Amlodipine Besylate 5 Mg Tablet 5 Mg PO DAILY Advair 500-50 Diskus (Fluticasone/Salmeterol) 1 Each Blst.w.dev 1 Puff PO BID Combivent Respimat Inhal [place] (Albuterol/Ipratropium) 4 Gm Aero 2 Puff IH QID Assessment/Pt Instructions Take medications as prescribed. You're being given a steroid taper. You will be required to quarantine when you go home. The health department will be in touch with you for further instructions. He should follow-up with your primary care physician in a couple weeks. Discharge Planning: <30 minutes discharge planning Discharge Instructions Discharge Diet: No Restrictions Activity as Tolerated: Yes Discharge Physical Examination Vital Signs Vital Signs Date Time Temp Pulse Resp B/P (MAP) Pulse Ox O2 Delivery O2 Flow Rate FiO2 03/31/20 08:05 High Flow N/C 4.00 03/31/20 07:54 37.1 97 20 168/97 (120) 91 03/30/20 02:25 30 General Appearance: No Apparent Distress, Chronically ill HEENT: PERRL/EOMI, Pharynx Normal Respiratory: Lungs Clear, No Respiratory Distress, Decreased Breath Sounds Cardiovascular: Regular Rate, Rhythm, No Edema, No Murmur Gastrointestinal: Normal Bowel Sounds, Non Tender, Soft Extremity: Normal Inspection, Non Tender, No Pedal Edema Skin: Normal Color, Warm/Dry Neurologic/Psychiatric: Alert, Oriented x3, No Motor/Sensory Deficits, Normal Mood/Affect Allergies: Coded Allergies: No Known Drug Allergies (Unverified , 06/23/18) Copy Copies To 1: [facility] [place] Summary Date of Admission Mar 27, 2020 at 14:03 Date of Discharge Discharge Date: Mar 31, 2020 Discharge Time: 10:56 Admission Diagnosis Acute on chronic hypoxic respiratory failure due to COVID-19 and COPD Discharge Diagnosis Acute exacerbation of COPD Acute on chronic hypoxic respiratory failure COVID-19 (1) COVID-19 Status: Acute (2) Acute on chronic respiratory failure with hypoxia Status: Acute (3) COPD with exacerbation Status: Acute (4) Acute kidney injury Status: Resolved Clinical Quality Measures DVT/VTE Risk/Contraindication: Risk Factor Score Per Nursin RFS Level Per Nursing on Admit: 4+=Very High KELLY PIMENTEL MD Mar 31, 2020 10:55
[2020-03-31 12:19] VITALS: BP 145/80
[2020-04-01] MEDS ORDERED: predniSONE 20 MG TAB PO SCH (07:00)
== END 2020-03-31 13:00 | disposition home or self-care (01) | DRG 871 ==
LOC: EDUNIT# 11:05 → ER 11:06 → UNDOADMIN 14:03 → CSD 14:03 → ICU 03-28 14:02 → 4TH 03-30 16:57
PROVIDERS: ADMIT Internal Medicine; ATTEND Internal Medicine
DX: A41.89 Other specified sepsis (principal); U07.1 COVID-19; J12.89 Other viral pneumonia; J96.21 Acute and chronic respiratory failure with hypoxia; N17.9 Acute kidney failure, unspecified; E87.2 Acidosis; E87.0 Hyperosmolality and hypernatremia; J43.9 Emphysema, unspecified; I10 Essential (primary) hypertension; E78.00 Pure hypercholesterolemia, unspecified; R63.0 Anorexia; F41.9 Anxiety disorder, unspecified; K59.09 Other constipation; M19.91 Primary osteoarthritis, unspecified site; M54.9 Dorsalgia, unspecified; Z99.81 Dependence on supplemental oxygen; Z87.891 Personal history of nicotine dependence; R73.9 Hyperglycemia, unspecified; T38.0X5A Adverse effect of glucocorticoids and synthetic analogues, initial encounter
CPT/HCPCS: 36415; 36569; 36600; 71045; 76937; 80048; 80053; 80061; 81000; 82805; 82962; 83605; 83615; 83735; 83874; 83880; 84100; 84145; 84484; 85025; 85610; 85730; 86141; 86769; 87040; 87088; 87635; 93005; 93041; 94640; 94660; 94760; 96361; 96365; 96375

== ENCOUNTER → 2020-12-13 | Outpatient (CLI) | payer MEDICARE ==
[~2020-12-13] MED LIST changes: +AMLO-250 PO; +ASPI-1238 PO; +BENA40TA5 PO; +FLUT1DIS27 PO; +IPRA3AMP31 NEB; +PRED10TA22 PO
--- NOTE | 2020-12-13 13:06 | Diagnostic Imaging Report ---
EXAMINATION: CT Chest without contrast. TECHNIQUE: Multiple contiguous axial images were obtained through the chest without the use of intravenous contrast. All CT scans use one or more of the following dose optimizing techniques: automated exposure control, MA and/or KvP adjustment based on a patient size and exam type, or iterative reconstruction. HISTORY: Follow-up lung nodule. History of COPD. COMPARISON: 12/27/2018. FINDINGS: The heart size is within normal limits. No pericardial effusion is present. There is calcified aortic and coronary atherosclerotic plaque without aneurysm. There is no mediastinal, hilar, or axillary lymphadenopathy. Centrilobular and paraseptal emphysema are seen throughout the lungs. Stable nodule in the right lower lobe measuring 0.5 cm. There has been interval calcification of a similar size nodule in the right lower lobe likely representing benign granuloma. Stable nodule in the right upper lobe measuring 0.5 cm. No new suspicious pulmonary nodules are seen. No focal consolidations or pulmonary masses. There is a new low density nodularity in the lower trachea measuring 0.8 cm. There is no pleural effusion or pneumothorax. No acute fractures are seen in the thoracic spine. Chronic height loss is noted at T11 and T12. Generalized osteopenia is noted. Limited views of the upper abdominal structures demonstrate no acute abnormalities. Hepatic steatosis is noted. Both adrenal glands are unremarkable. IMPRESSION: 1. New low density nodularity in the lower trachea measuring 0.8 cm. This is favored to represent retained mucous secretions; however, early malignancy is not excluded and close follow-up is recommended in 1-2 months. If this nodularity is persistent on follow-up imaging direct visualization and biopsy with bronchoscopy should be performed. 2. Stable subcentimeter nodules measuring up to 0.5 cm. Benign calcified granulomas are also present in the lungs. Recommend continued follow-up in 12 months. 3. Advanced emphysema throughout the lungs. 4. Hepatic steatosis. Dictated by: Dictated on workstation # [id number]
== END ==
LOC: RAD 10:27
PROVIDERS: ATTEND Nurse Practitioner Family
DX: J43.9 Emphysema, unspecified (principal); J84.10 Pulmonary fibrosis, unspecified; R91.8 Other nonspecific abnormal finding of lung field; K76.0 Fatty (change of) liver, not elsewhere classified
CPT/HCPCS: 71250

== ENCOUNTER → 2021-01-09 | Outpatient (CLI) | payer MEDICARE ==
[~2021-01-09] MED LIST changes: +CATHETER FLUSH 10 ML SYR IV PRN; +HOLD METFORMIN - RECEIVED CONTRAST 20 ML VIAL IV SCH; +IOHEXOL 350 MG/ML 100 ML (OMNIPAQUE 350) VIAL IV ONE; +NS 100 ML (IVPB) BAG IV ONE
[2021-01-09 09:05] LABS: BUN/CREATININE RATIO 13; GFR ESTIMATED > 60
--- NOTE | 2021-01-09 11:02 | Diagnostic Imaging Report ---
EXAMINATION: CT Chest with intravenous contrast. TECHNIQUE: Multiple contiguous axial images were obtained through the chest after the uneventful administration of intravenous contrast. All CT scans use one or more of the following dose optimizing techniques: automated exposure control, MA and/or KvP adjustment based on a patient size and exam type, or iterative reconstruction. HISTORY: Pulmonary nodule follow-up COMPARISON: CT chest 12/13/2020 FINDINGS: Thyroid: The thyroid is normal. Mediastinum: Heart size is normal without significant pericardial effusion. Calcifications of the aorta and coronary vessels. Thoracic aorta is normal in caliber. No suspicious lymphadenopathy. Lungs and airways: There are background emphysematous changes of the lungs without consolidation, pleural effusion, or pneumothorax. Scarring within the lung apices and bases. There are stable subcentimeter bilateral pulmonary nodules measuring up to 0.5 cm in the right lower lobe. The focus of nodular thickening seen within the posterior inferior tracheal on prior exam has resolved. There is a new focus of nodular thickening along the anterior trachea more superiorly on today's exam (series 3, image 36). Upper abdomen: The subphrenic structures are normal. Musculoskeletal: Degenerative changes of the spine without suspicious osseous lesion or acute compression fracture. Multilevel chronic compression deformities of the visualized thoracolumbar spine. IMPRESSION: 1. Interval resolution of the nodular density along the posterior trachea seen on prior CT of 12/13/2020. There is a new area of density along the anterior trachea slightly more superior to this location. Given the transitory location of these findings, mucous or secretions are favored. These could be confirmed with bronchoscopy. 2. Stable findings of emphysema without other acute abnormality in the chest. 3. Stable bilateral pulmonary nodules measuring up to 0.5 cm which are unchanged from prior CTs dating back to 08/06/2015 and require no further follow-up. Dictated by: Dictated on workstation # [id number]
== END ==
LOC: RAD 10:15
PROVIDERS: ATTEND Nurse Practitioner Family
DX: R91.8 Other nonspecific abnormal finding of lung field (principal); J43.9 Emphysema, unspecified
CPT/HCPCS: 36415; 71260; 82565; 84520

== ENCOUNTER → 2021-04-15 | Outpatient (CLI) | payer MEDICARE ==
[2021-04-15 09:16] LABS: BUN/CREATININE RATIO 16; CREATININE SERUM 1.07 MG/DL (0.60-1.30); GFR ESTIMATED > 60
--- NOTE | 2021-04-15 10:35 | Diagnostic Imaging Report ---
PROCEDURE: CT chest with contrast only. TECHNIQUE: Multiple contiguous axial images were obtained through the chest after administration of intravenous contrast. Auto Exposure Controls were utilized during the CT exam to meet ALARA standards for radiation dose reduction. INDICATION: COPD. Compared 01/09/2021. No suspicious endotracheal or endobronchial filling defect today is identified. Emphysematous changes in the lungs with some areas of subpleural scarring in the upper greater than lower lobes as well as scattered air cyst are unchanged. No pneumonia. No acute infiltrate. A stable subpleural nodule 3 to 4 mm right lower lobe chronic. No suspicious lung mass. No axillary hilar or mediastinal lymphadenopathy. No effusion or pneumothorax. No acute or suspect chest wall pathology. The aorta nonaneurysmal. Visualized upper abdomen nonacute. IMPRESSION: Severe emphysematous changes, chronic subpleural scar right lower lobe. No suspicious mass, acute infiltrate, effusion, pneumothorax or adenopathy. Dictated by: Dictated on workstation # [id number]
== END ==
LOC: RAD 08:27
PROVIDERS: ATTEND Nurse Practitioner Family
DX: J43.9 Emphysema, unspecified (principal); J98.4 Other disorders of lung
CPT/HCPCS: 36415; 71260; 82565; 84520